=== PATIENT | male | born 1970 | race Caucasian/White ===

== ENCOUNTER → 2023-12-15 08:34 | Outpatient (REF) | payer BC, SELFPAY | LOC: RCS 08:34 | PROVIDERS: ATTENDING PHYSICIAN Nurse Practitioner Family | DX: R01.1 Cardiac murmur, unspecified (principal) | CPT/HCPCS: 93306 ==

== ENCOUNTER → 2023-12-21 07:07 | Day surgery (SDC) | payer BC, SELFPAY | LOC: CATH 07:07 | PROVIDERS: ATTENDING PHYSICIAN Internal Medicine Cardiovascular Disease; FAMILY PHYSICIAN Family Medicine; OTHER PHYSICIAN Internal Medicine Cardiovascular Disease | DX: I08.3 Combined rheumatic disorders of mitral, aortic and tricuspid valves (principal); R00.1 Bradycardia, unspecified; I10 Essential (primary) hypertension; E78.2 Mixed hyperlipidemia; R53.83 Other fatigue | CPT/HCPCS: 93320; 93312; 93325 ==

== ENCOUNTER → 2023-12-30 07:28 | Outpatient (REF) | payer BC, SELFPAY | LOC: RCS 07:28 | PROVIDERS: ATTENDING PHYSICIAN Internal Medicine Cardiovascular Disease; FAMILY PHYSICIAN Family Medicine | DX: I10 Essential (primary) hypertension (principal); I34.0 Nonrheumatic mitral (valve) insufficiency; R53.83 Other fatigue | CPT/HCPCS: 93017 ==

== ENCOUNTER 2024-01-02 09:28 | Inpatient (IN) | payer BC, SELFPAY ==
[2024-01-02] VITALS (17 sets, daily range): BP systolic 116–135; BP diastolic 59–84; BMI 28.3; BMI 27.7
[2024-01-02 06:35] LABS: % Basophils 0.9 % (0-2); % Eosinophils 4.1 % (0-6); % Immature Granulocytes 0.2 % (0-0.5); % Lymphocytes 37.4 % (20.5-51.1); % Monocytes 8.1 % (1.7-9.3); % Neutrophils 49.3 % (42.2-75.2); Absolute Basophils 0.1 10^3/uL (0-0.2); Absolute Eosinophils 0.4 10^3/uL (0-0.7); Absolute Lymphocytes 3.4 10^3/uL (1.2-3.4); Absolute Monocytes 0.7 10^3/uL (0.1-0.6); Absolute Neutrophils 4.5 10^3/uL (1.4-6.5); Hematocrit 43.9 % (39.0-52.0); Hemoglobin 15.8 g/dL (13.0-18.0); Mean Corpuscular Hgb 31.6 pg (27.0-31.0); Mean Corpuscular Volume 87.8 fL (80.0-94.0); Mean Platelet Volume 8.9 fL (7.4-10.4); Nucleated Red Blood Cells % 0 % (-); Platelet Count 279 10^3/uL (130-400); Red Cell Dist. Width 11.9 % (11.5-14.5); White Blood Cell Count 9.1 10^3/uL (4.8-10.8)
--- NOTE | 2024-01-02 06:38 | ED.GENMED ---
History of Present Illness
General
Chief Complaint: Chest Pain
Source: patient, records and previous hospital records
Exam Limitations: none
Time Seen by Provider: 01/02/24 06:26
History of Present Illness
History of Present Illness:
53-year-old male history of mitral valve disease followed by cardiology scheduled for cardiac cath in the coming weeks, presents with chest pain is a fairly frequency last night started on 10 AM went to his arm and jaw, had a stress test recently,
started on aspirin recently has hypercholesterolemia, hypertension, strong family history of CAD he has fatigue which is not new for him, recent underwent a KING
Past History
Past History
ED Past Medical History: GERD, HTN, Valvular disease and Other (Kidney stones)
ED Past Surgical History: None
Social History
Tobacco: Non-smoker
Alcohol: Occasional
Drug: None
Personal:
Living: with family
Employment: Employed
Family History
Family History: Diabetes, Hypertension and CAD
Review of Systems
Review of Systems
All Other Systems: Not applicable
Constitutional: Reports fatigue; Denies fever
EENT: Reports no symptoms
Respiratory: Reports trouble breathing
Cardiac: Reports chest pain; Denies diaphoresis or palpitations
ABD/GI: Reports no symptoms
: Reports no symptoms
Musculoskeletal: Reports no symptoms
Skin: Reports no symptoms
Neurological: Reports weakness; Denies dizzy or numbness
Endocrine: Reports no symptoms
Phy Exam
Physical Exam
Physical Exam:
Physical Exam
General: no apparent distress, not acutely ill
Neck: No jaundice
Heart: Regular +systolic ejection murmur
Lungs: no acute respiratory distress. clear bilaterally
Abdomen: Not tender
Neuro: alert and oriented. no focal neurological deficits
Skin: no rash
Psychiatric: well kept. interactive and cooperative
Extremities: no edema. no calf tenderness.
Scores
Heart Score for Chest Pain Patients
STEMI patient?: No
History: Moderately Suspicious
ECG: Normal
Age: >45 - <65 years
Risk Factors: 1 or 2 Risk Factors
Troponin: </= Normal Limit
Heart Score for Chest Pain Patients: 3
Heart Score Risk: 2.5% MACE over next 6 weeks
Course
Orders/Labs/Results
Orders:
Orders
01/02/24 05:55
Electrocardiogram (*1) Urgent
Reason for Study: Chest Pain
EKG- Treatment ONCE
01/02/24 06:25
CMP [Comprehensive Metabolic Panel] Urgent
Complete Blood Count/With Diff Urgent
Lipase Urgent
Comment: ADD ON
NT-proBNP Urgent
Comment: ADD ON
Troponin I Urgent
01/02/24 06:34
Add On- LAB Urgent
Tests Added?: pBNP, lipase
Aspirin 325 mg PO NOW STA
Nitroglycerin Sublingual [Nitrostat (Sublingual)] 0.4 mg SL [id number] PRN
CR Chest Portable - 1 View Urgent
Comment:
Reason For Exam: cp
Reason Study Needs to be Portable: Patient Unstable
01/02/24 07:24
CARDIOLOGY CONSULT Urgent
Consulting Provider: Aquiles Quintero
Was physician already notified: Yes
Abnormal Lab Results
01/02/24
06:25
MCH 31.6 H pg
(27.0-31.0)
Absolute Monos (auto) 0.7 H 10^3/uL
(0.1-0.6)
Calcium 10.6 H mg/dl
(8.4-10.2)
01/02/24 06:25
01/02/24 06:25
Vital Signs
Initial and Last Documented VS:
Initial Vital Signs
Temp Pulse Resp BP Pulse Ox
97.8 F 54 14 117/69 99
01/02/24 06:13 01/02/24 06:13 01/02/24 06:13 01/02/24 06:13 01/02/24 06:13
Last Documented Vital Signs
Temp Pulse Resp BP Pulse Ox
97.8 F 48 16 119/78 90
01/02/24 06:13 01/02/24 07:00 01/02/24 07:00 01/02/24 07:00 01/02/24 07:00
MDM/Problems Addressed
Differential Diagnosis Includes:
CAD, valvular disease, heart failure reflux less likely PE
MDM/Problems Addressed:
Chest pain shortness
Chronic conditions affecting care:
Valvular
Acute Exacerbation and/or Progression of Chronic Illness:
Valvular
*Radiology
Radiology exam reviewed: preliminary read by ED provider
*Pulse Oximetry
Patient hypoxic: no
*EKG
Interpreted by ED Provider?: Yes
Interpretation: normal
Comparison EKG: no comparison EKG present
Heart Rate: 70
Rate: normal
Rhythm: sinus
Ischemia: no ischemia
*Newspaper Reporter Interpretation
Interpretation: normal
Heart Rate: 70
Rhythm: sinus
*Critical Care Note
Total Time (30-74mins, 75-104mins- exclusive of procedures): Not Applicable
Update Note
Update Note:
Update labs are noted, consult placed to cardiology
ED Attending Note
-
Portions of this chart may have been created with voice recognition software.� Occasional wrong word or��sound alike� substitutions may have occurred due to the inherent limitations of voice recognition software.
Discharge Plan
Departure
Prescriptions:
No Action
multivitamin [One A Day] Tablet
1 tab PO DAILY
amlodipine 5 mg Tablet
5 mg PO DAILY
aspirin [Richard Chewable Aspirin] 81 mg Tablet,Chewable
81 mg PO DAILY
rosuvastatin 40 mg Tablet
40 mg PO DAILY
cholecalciferol (vitamin D3) [Vitamin D3] 50 mcg (2,000 unit) Tablet
50 mcg PO DAILY
vitamin [id number] acid 500-400 mcg Tablet
1 tab PO DAILY
Referrals:
Minnie Frederick CRNP [Family Provider] -
Interventions
Interventions:
*Risk Screen - Suicide Last Done: 01/02/24 05:55
*General Assessment Last Done: 01/02/24 06:13
*Neglect/Abuse Screening Last Done: 01/02/24 05:55
ED- Fall Risk Assessment Last Done: 01/02/24 06:13
*ED COVID-19 Vaccine History Last Done: 01/02/24 06:13
ED- Cardiac Assessment Last Done: 01/02/24 06:13
Discharge Date and Time
Print Language: ROMANIAN
[2024-01-02] MEDS: ASPIRIN 325 MG PO (06:47)
[2024-01-02] MEDS: NITROSTAT (SUBLINGUAL) 0.4 MG SL (06:48)
[2024-01-02 06:52] LABS: ALT (SGPT) 19 U/L (0-50); AST (SGOT) 25 U/L (17-59); Albumin 4.3 g/dl (3.5-5.0); Alkaline Phosphatase 93 U/L (38-126); Blood Urea Nitrogen 18 mg/dl (9-20); Calcium 10.6 mg/dl (8.4-10.2); Carbon Dioxide 23 mmol/L (22-30); Chloride 104 mmol/L (98-107); Estimated Creatinine Clearance 100 ml/min; Glucose 93 mg/dl (70-99); Lipase 229 U/L (23-300); Potassium 4.1 mmol/L (3.5-5.1); Sodium 137 mmol/L (135-145); Total Bilirubin 1.2 mg/dl (0.2-1.3); Total Protein 6.9 g/dl (6.3-8.2); eGFR > 60.00
[2024-01-02 07:03] LABS: NT-proBNP < 20.0 pg/ml; Troponin I < 0.012 ng/ml
--- NOTE | 2024-01-02 08:47 | HPS.HSE ---
Addendum entered and electronically signed by Aquiles Quintero MD 01/02/24 10:41:
53 yo male with moderate/severe MR, with prolapse and partial flail at P2, HTN, hyperlipidemia is admitted with chest pain. He felt a squeezing sensation in his chest with radiation down left arm. He had gone for a walk prior; but the pain occurred
while watching TV. He is currently chest pain free. TnI <0.012, and no ischemic changes on EKG. Of note, I reviewed an ETT done 12/29, which was moderate risk due to 1mm STD and chest tightness with exercise.
Concern for unstable angina. ASA 325mg, heparin drip.
Plan for cath today. I discussed with patient and that he may need CT surgery consult for evaluation for possible CABG and MV repair.
Original Note:
Family Physician
-
Family Physician: DANYA Blevins
Primary maintenance trainer: Farzad Agee MD
Chief Complaint
-
Chest pain
History of Present Illness
Darryl Koo is a 53-year-old male (known to Dr. Agee, his primary maintenance trainer), with hypertension, dyslipidemia, and moderate mitral regurgitation, presents with a chief complaint of chest pain. He has been experiencing chest pain since
approximately 10 PM last night. Yesterday, he went on a walk which is normal for him. He felt well during this walk. At 10 PM, while watching TV, he developed the sudden onset of a squeezing sensation in his chest. At its worst, it was 5/10 in
severity. He also experienced numbness in his left hand and throbbing in his left neck. He denies associated symptoms of nausea, diaphoresis, and dizziness. The chest squeezing sensation was ongoing until approximately 7 AM. His initial troponin
was <0.012. Chest x-ray without acute findings. His EKG is stable.
He initially saw Dr. Agee as a new patient December 19, 2023. This was prompted by a murmur and fatigue. He had a KING and was found to have moderate mitral regurgitation. The plan was for PET myocardial perfusion study however his insurance
provider said it did not meet medical necessity. An ETT was completed on Tuesday. He had ST depression and chest pain during testing.
Medical History
Past Medical History
Past Medical History: Reports HTN and Hypercholesterolemia
Past Surgical History: Reports None
Social History
Tobacco: Non-smoker
Alcohol: Occasional
Drug: None
Personal:
Living: With Family
Employment: Employed
Family History
Family History: Early CAD, CAD, Diabetes and Hypertension
Allergies / Home Medications
Allergies reflects when Allergies were last updated in [facility].
Home Medications with original date entered in [facility]
Allergy/Medication List:
Allergies:
Patient denies allergies to medication. He endorses allergies to ragweed and various grasses. These all cause congestion.
Allergies to apricots and coconut.
Home medication list:
Amlodipine 5 mg daily
Aspirin 81 mg daily
Vitamin D3 50 mcg p.o. daily
Multivitamin 1 tablet p.o. daily
Rosuvastatin 40 mg p.o. daily
Vitamin B12 1 tablet p.o. daily
Review of Systems
-
History Source: Patient
A 12 point ROS was completed and negative except as noted: Yes
Constitutional: Reports Fatigue
EENT: Reports No Symptoms
Respiratory: Reports No Symptoms
Cardiac: Reports See HPI
Abdomen/GI: Reports No Symptoms
: Reports No Symptoms
Musculoskeletal: Reports No Symptoms
Skin: Reports No Symptoms
Neurological: Reports No Symptoms
Endocrine: Reports No Symptoms
Hematologic/Lymphatic: Reports No Symptoms
Psych: Reports No Symptoms
Physical Exam
Vital Signs
Vital Signs
Temp Pulse Resp BP Pulse Ox
97.8 F 49 12 121/74 95
01/02/24 06:13 01/02/24 08:15 01/02/24 08:15 01/02/24 08:00 01/02/24 08:15
Physical Exam
General: Well Developed, Well Nourished, No Apparent Distress and Comfortable
HEENT: NormoCephalic, Anicteric and Moist mucous membranes
Respiratory: Clear and Non Labored Respirations
Cardiac: S1/S2, Regular Rhythm and Murmur (IV/)
Breast: Deferred by me
GI: Soft, Non Tender, Non Distended and Normal Bowel Sounds
Rectal: Deferred by Provider
Musculoskeletal: No Clubbing, No Cyanosis and No Edema
Skin: Warm and Dry
Neuro: AO x 3
Hematologic/Lymphatic: No Lymphadenopathy
Psych: Calm and Intact Judgment/Insight
Laboratory Results
-
01/02/24 06:25
01/02/24 06:25
Laboratory Results
Total Bilirubin 1.2 mg/dl (0.2-1.3) 01/02/24 06:25
AST 25 U/L (17-59) 01/02/24 06:25
ALT 19 U/L (0-50) 01/02/24 06:25
Alkaline Phosphatase 93 U/L (38-126) 01/02/24 06:25
Troponin I < 0.012 ng/ml 01/02/24 06:25
Lipase 229 U/L (23-300) 01/02/24 06:25
Data Reviewed
-
Medical Tests (Nuc Med, Echo, EKG etc): Report Reviewed by me (KING and TTE as above)
Lab Data: Labs Reviewed by me
Old Records: Reviewed
Impression/Plan
-
BACKGROUND: 53M with hypertension, dyslipidemia, and moderate mitral regurgitation, presents with a chief complaint of chest pain.
Security Specialist: Dr. Agee
IMPRESSION/PLAN:
ACS
-Ongoing for ~8 hours
-Described as a squeezing sensation in his chest with left arm numbness and throbbing in his left neck
-Troponin < 0.012
-Abnormal ETT 12/30/2023 (see below)
-HgbA1c 5.6% in the outpatient setting
-ASA 324 mg x 1 now, start heparin drip, no beta-caitlyn due to underlying sinus bradycardia
-Cardiac catheterization today, case discussed with interventional cardiology
Mitral regurgitation, moderate
-KING 12/15/2023 with mid systolic, eccentric, anteriorly directed moderate mitral regurgitation
Dyslipidemia
-Lipid panel 12/05/2023: TC 243, LDL 172, HDL 43, TG 151 -> started on rosuvastatin 12/19/2023
HTN, stable on amlodipine
Sinus bradycardia, stable
SUBJECTIVE: As above
DATA:
ETT, 12/30/2023:
1.The patient was exercised by the Aime protocol into
stage 4 for 9 minutes and 17 seconds achieving 10 METS.
2.The exercise ECG was positive for ischemia at 86%
maximum predicted heart rate with [address] depression
in leads II, III, aVF and V4-V6.
3.The blood pressure response was within normal limits.
4.There was arrhythmia during the study; PAC's and rare
PVC's.
5.The exercise tolerance was average.
6.Symptomatology - chest tightness x 4, resolved 1 minute
in recovery.
7.This is a moderate risk stress test (DTS = +0).
Transesophageal echocardiogram, 12/21/2023:
Normal biventricular size and systolic function without regional wall motion
abnormality.
Mitral valve prolapse with partial flail at P2.
Mid systolic, eccentric, anteriorly directed moderate mitral regurgitation.
No prior study available for comparison.
Echocardiogram, 12/15/2023:
Normal LV size and function with no regional wall motion abnormalities.
LVEF is 60 to 65% by visual estimation.
Normal diastolic function.
Normal right ventricular size and function.
Prolapse of the posterior mitral valve leaflet with moderate to severe
anteriorly directed mitral regurgitation.
Trivial aortic regurgitation.
No prior study available for comparison.
[2024-01-02 09:16] LABS: APTT 25.5 Sec (23.4-35.0)
[2024-01-02] MEDS: HEPARIN 4000 UNITS IV (09:21)
[2024-01-02] MEDS: HEPARIN 25000 UNITS/250 ML IV (09:21)
[2024-01-02 11:05] LABS: Troponin I < 0.012 ng/ml
--- NOTE | 2024-01-02 12:41 | CM ---
Chart reviewed. Patient is independent of ADLS, lives with his in a 1 [address], 0 COLIN, 0 DME. Plan is for the patient to return home. CM to follow
--- NOTE | 2024-01-02 13:18 | PTCARENOTE ---
Received patient from the ED at 1100 with ACS. IV heparin infusing at 1000 units/hr. Oriented to the room and plan of care, patient is NPO and pain free he states since he received NTG in the ED. at the bedside, call conteh in reach, await
cardiac cath.
[2024-01-02 14:23] LABS: Troponin I < 0.012 ng/ml
--- NOTE | 2024-01-02 18:02 | ITS.CL.CATH ---
[employer]bin[employer] Apprentice - Catheterization
Cardiac Catheterization
Procedure Report:
CARDIAC CATHETERIZATION REPORT
Date of Procedure: 01/02/2024
Referring: Carlos Mcknight M.D.
Indication: Severe mitral valve regurgitation.
PROCEDURE:
1. Right heart catheterization.
2. Left heart catheterization.
3. Coronary angiography.
ACCESS:
6 Singaporean right radial artery.
5 Singaporean right antecubital vein.
CATHETERS:
1. 5 Singaporean balloon wedge.
2. 5 Singaporean JL 3.5.
3. 5 Singaporean JR4.
HEMODYNAMIC DATA
Weight (kg): 81.6
AO (s/d/x mmHg): 134/74/98
LV (s/x mmHg): 143/12
PCWP (a/v/x mmHg): 18/
PA (s/d/x mmHg): /
RV (s/x mmHg): 33/7
RA (a/v/x mmHg):
SVC SvO2 (%): 73.5
PA SvO2 (%): 70.8
SaO2 (%): 92.4
Hbg (g/dL): 15.2
CO (L/min): 5.75
CI (L/min/m2): 2.98
TPG (mmHg): 7
PVR (Pearce Units): 1.22
SVR (dynes*seconds*cm^-5): 1266
AVO2 Diff (Volume %): 4.47
AV gradient (x, mmHg): 16.5
AV area (cm2): 2.20
LEFT VENTRICULOGRAPHY: Not performed.
CORONARY ANGIOGRAPHY
Dominance: Right.
Left Main: Normal size, bifurcating vessel. There is no coronary artery disease.
LAD: Normal size vessel giving rise to 1 significant diagonal. There is a <20% tapering of the mid LAD immediately after the origin of the diagonal.
Ramus: Congenitally absent.
Circumflex: Large size, nondominant vessel giving rise to 2 significant marginals. There is no coronary artery disease.
RCA: Large size, dominant vessel. There is no coronary artery disease.
INTERVENTIONS
None.
Closure Device: Vascular band for the right radial artery, manual pressure for the right antecubital vein.
Radiation dose (mGy): 279.54
DAP (cm2.Gy): 17.1858
Fluoroscopy time (minutes): 2.4
Sedation time (minutes): 4
CONCLUSIONS:
1. Right dominant circulation with a <20% tapering of the mid LAD immediately after the origin of the diagonal but no other coronary artery disease.
2. Severe mitral valve regurgitation seen on transesophageal echocardiogram.
3. Normal filling pressures (LVEDP = 12 mmHg, PCWP = 13 mmHg at 81.6 kg).
RECOMMENDATIONS:
1. Expectant management after cardiac catheterization via right radial/antecubital approach.
2. Limited weight bearing on the right wrist for one week.
3. Consultation with CT surgery regarding optimal mitral valve repair strategy.
Copy to: Carlos Mcknight M.D., Farzad Agee M.D., Aquiles Quintero M.D., Ph.D., DANYA Blevins, Tila March M.D.
Jayjay Vasques DO, FACC, FACP
--- NOTE | 2024-01-02 19:20 | PTCARENOTE ---
Received patient from the laboratory development technician at 1745. Radial band is dry and intact right wrist, dressing right brachial area is dry and intact. Pulse ox on right hand is 96% on RA. SR/SB on the monitor, IV NS infusing LFA. Reinforced post cath restrictions,
monitoring VS as per protocol. at the bedside, call conteh in reach. Attempted to remove 3ml of air from right radial band at 1815 but oozing noted from under the band and air reinflated. Reported to oncoming shift. Dr. Hightower in to speak with
the patient and .
--- NOTE | 2024-01-02 23:48 | PTCARENOTE ---
Pt received start of shift, HR SB. R radial band off at 2135, gauze and tegaderm placed over site - area soft, ecchymotic, no hematoma. R radial pulse normal. Pt updated on plan of care, pt states no questions at this time. Pt denies any CP,
informed to notify RN if any changes, call conteh within reach.
[2024-01-03 02:39] VITALS: BP 110/56
[2024-01-03 02:51] VITALS: BMI 27.6
[2024-01-03 03:40] LABS: Hematocrit 42.9 % (39.0-52.0); Hemoglobin 14.9 g/dL (13.0-18.0); Mean Corp Hgb Conc. 34.7 g/dL (33.0-37.0); Mean Corpuscular Volume 92.3 fL (80.0-94.0); Mean Platelet Volume 9.2 fL (7.4-10.4); Platelet Count 245 10^3/uL (130-400); Red Blood Cell Count 4.65 10^6/uL (4.70-6.10); Red Cell Dist. Width 11.9 % (11.5-14.5)
[2024-01-03 04:02] LABS: HDL Cholesterol 34 mg/dl; LDL Cholesterol, Calculated 51 mg/dl; Total Cholesterol 111 mg/dl (50-199); Triglyceride 131 mg/dl (10-149); Very Low Density Lipoprotein 26 mg/dl (0-30)
[2024-01-03 07:50] VITALS: BP 137/81
--- NOTE | 2024-01-03 07:57 | W.PN.CD ---
Today's Communication / Plan
-
CT surgery evalation.
Stable for outpatient cardiology follow up.
Impression / Plan
-
Impression/Plan: 53 y/o male with HTN, HLD and severe mitral regurgitation with flail P2 admitted with chest pain, initially concerning for unstable angina.
#Noncardiac chest pain
-Acute, resolved.
-Cardiac catheterization reveals no significant CAD.
#Severe MR
-Chronic.
-KING shows flail P2 (12/21/2023).
-Filling pressures are essentially normal at cath, showing he is well compensated.
-Consultation with CT surgery (likely outpatient) to discuss degenerative MR mitral valve repair.
#Hypertension
-Chronic, stable.
-Restart home amlodipine.
#HLD
-Chronic, stable.
-Total cholesterol = 111, LDL = 51, HDL = 34, Triglycerides = 131.
-Restart home rosuvastatin. LDL is currently at goal.
#PPx
-SCD's/early ambulation for DVT/VTE prophylaxis.
-No role for PUD prophylaxis.
#Dispo
-IVU status.
-Full code.
-Stable for outpatient cardiology/CT surgery follow up.
Subjective/Interval History:
Cardiac catheterization shows no CAD, well compensated filling pressures.
Sinus glen on telemetry.
DATA:
KING, 12/21/2023:
CONCLUSIONS
Normal biventricular size and systolic function without regional wall motion
abnormality.
Mitral valve prolapse with partial flail at P2.
Mid systolic, eccentric, anteriorly directed moderate mitral regurgitation.
No prior study available for comparison.
Cardiac Catheterization, 01/02/2024:
CONCLUSIONS:
1. Right dominant circulation with a <20% tapering of the mid LAD immediately after the origin of the diagonal but no other coronary artery disease.
2. Severe mitral valve regurgitation seen on transesophageal echocardiogram.
3. Normal filling pressures (LVEDP = 12 mmHg, PCWP = 13 mmHg at 81.6 kg).
Physical Exam
Vital Signs/Labs
Vital Signs
Temp Pulse Resp BP Pulse Ox
36.4 C 50 20 110/56 95
01/03/24 07:52 01/03/24 02:45 01/03/24 07:52 01/03/24 02:39 01/03/24 07:52
01/01/24 01/02/24 01/03/24
11:59 11:59 11:59
Actual Weight 81.8 kg 80 kg
01/03/24 02:48
01/02/24 06:25
APTT Cancelled 01/02/24 15:20
Triglycerides 131 mg/dl (10-149) 01/03/24 02:48
LDL Cholesterol, Calc 51 mg/dl 01/03/24 02:48
VLDL Cholesterol, Calc 26 mg/dl (0-30) 01/03/24 02:48
HDL Cholesterol 34 mg/dl 01/03/24 02:48
01/02/24
06:25
[id number] Pept < 20.0
LAB Results
01/02/24 01/02/24 01/02/24
06:25 10:25 11:02
Troponin I < 0.012 < 0.012 Cancelled
01/02/24 01/02/24
13:38 17:02
Troponin I < 0.012 Cancelled
Physical Exam
Constitutional: No acute distress and Comfortable
EENT: Anicteric and Moist mucous membranes
Cardiovascular: Rhythm & rate is regular, Pedal edema is absent, JVD pressure is normal, Systolic murmur present and S1S2 is normal
Respiratory: Respiratory effort normal, Lungs clear to auscul., Wheeze Absent, Crackles Absent and Rhonchi Absent
GI: Soft, Distention absent, Flat, Non tender and Normal bowel sounds
Neuro/Psych: AO x 3
Other: Cath Site (Right radial/antecubital access site is C/D/I.)
Data Reviewed
-
Date of Service: January 03, 2024
Medical Decision Making: Reviewed Test Results, Independent Historian Assessment, Test Interpretation and Review of Case with other Provider
EKG: Tracing Personally Visualized and interpreted and Report Reviewed by me
Echo: Tracing Personally Visualized and interpreted and Report Reviewed by me
X-Ray/CT/US/MRI/NUC/PET: Image Personally Visualized and interpreted and Report Reviewed by me
Medical Tests (PFT, Pathology etc): Image Personally Visualized and interpreted, Report Reviewed by me, Discussed with Physician and Discussed with Patient
Labs: Labs Reviewed by me
Old Records: Reviewed
--- NOTE | 2024-01-03 08:00 | PTCARENOTE ---
pt received from previous RN, oriented, OOB. SB on the monitor, HR 40-50s. +murmur. SBP 130s. palpable pulses, no edema. pt on RA, lungs clear. pt ambulates independently. voids. R radial site c/d/i. R brachial site c/d/i. PIV. pt denies CP or SOB.
see worklist for VS, I&O, and assessment.
[2024-01-03] MEDS: NORVASC 5 MG PO (08:58)
[2024-01-03] MEDS: LOW STRENGTH ASPIRIN 81 MG PO (08:58)
[2024-01-03] MEDS: CRESTOR 40 MG PO (08:58)
[2024-01-03] MEDS: VITAMIN D3 (cholecalciferol) 50 MCG PO (08:58)
[2024-01-03] MEDS: B COMPLEX w/VITAMIN C 1 CAPLET PO (08:58)
[2024-01-03] MEDS: THERAGRAN 1 TABLET PO (08:58)
[2024-01-03 09:07] LABS: Glycohemoglobin (HgbA1c) 5.6 % (4.0-5.6)
--- NOTE | 2024-01-03 09:11 | W.PN.UPDATE ---
Update Note
Progress Note Update
I met with Mr. Koo at the bedside today. He was comfortable and in no distress. He initial presenting symptom was chest pain and left arm pain while on a treadmill, although he tells me he had this feeling before the treadmill as well. I reviewed
his pathology and findings. He has a flail PL mostly at P2 (borderding into P1) with multiple torn chords and prolapse. His LHC did not reveal any significant/obstructive coronary artery disease. 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 His
valve looks repairable. Will plan to obtain a CTA of the C/A/P for preoperative planning. We will tentatively schedule a surgery date on January 29 for HP Mitral Valve Repair. A full consultation note to follow. We discussed his STS risk for iso MV
repair, I quoted him a <1% mortality. Based on his presentation, some pulmonary vascular congestion, severe MR, I believe he meets criteria for intervention.
Ivan Medina MD, MS
Cardiac Surgeon
[facility]
--- NOTE | 2024-01-03 09:38 | CONSULT.CT ---
Consultation
-
Date/Time Consultation Requested: 01/02
Date/Time Consultation Performed: 01/02
Requesting Provider: Jayjay Vasques
Performing Provider: Latricia Mascorro for Dr. Ivan Medina
Reason for Consultation: evaluate for mitral valve repair/replacement
Patient History
Physicians
Family Physician: Minnie Frederick
Outpatient Protozoology Teacher: Farzad Agee
Inpatient Protozoology Teacher: Jayjay Vasques
History of Present Illness
Darryl Koo is a 53-year-old male with a past medical history significant for hypertension, dyslipidemia, and moderate mitral regurgitation, was admitted on 01/02/2024 to [facility] emergency room with a chief complaint of sudden onset
midsternal chest pain with associated left upper extremity numbness and throbbing in his left neck that started at 10 PM the prior evening. Initial troponin was <0.012. Patient saw Dr. Agee as a new patient on December 19, 2023 to evaluate a murmur
and fatigue. A KING was performed on 12/21/2023 and revealed an EF of 60-65% with mitral valve prolapse, partial P2 flail, and moderate mitral regurgitation.. The plan was for PET myocardial perfusion study however his insurance provider said it did
not meet medical necessity. An ETT was completed on 12/30/23. He had ST depression and chest pain during testing. Patient was admitted and underwent a left heart cath on 01/02/2024 which reported RA�7; PA 33/13 (20); PCW 13; cardiac output
5.75/cardiac index 2.98. Severe mitral regurgitation consistent with KING and nonobstructive coronary disease. We are asked to evaluate patient for mitral valve surgery. He is currently sitting in bed and chest pain-free
Past Medical History
Past Medical History: GERD, HTN, Hypercholesterolemia and Other (Remote nephrolithiasis)
Past Surgical History
Past Surgical History: None
Dental History
2 months ago
Social History
Alcohol: Occasional
Drug: None
Tobacco: Non-Smoker
Personal:
Living: With Spouse
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
Allergies
Allergy/AdvReac Type Severity Reaction Status Date / Time
No Known Allergies Allergy Verified 01/02/24 06:04
Home Medications
�Medication �Instructions �Recorded �Confirmed �Type
amlodipine 5 mg tablet 5 mg PO DAILY Blood Pressure 12/21/23 01/02/24 History
aspirin 81 mg chewable tablet 81 mg PO DAILY Blood Clot 12/21/23 01/02/24 History
(Richard Chewable Low Dose Aspirin) Prevention/Tx
cholecalciferol (vitamin D3) 50 50 mcg PO DAILY Supplement 12/21/23 01/02/24 History
mcg (2,000 unit) tablet (Vitamin
D3)
multivitamin 1 tab PO DAILY Supplement 12/21/23 01/02/24 History
rosuvastatin 40 mg tablet 40 mg PO DAILY High Cholesterol 12/21/23 01/02/24 History
vitamin B12 500 mcg-folic acid 400 1 tab PO DAILY Supplement 12/21/23 01/02/24 History
mcg tablet
Review of Systems
-
History Source: Patient
General: Reports No Symptoms
HEENT: Reports No Symptoms
Respiratory: Reports No Symptoms
Cardiac: Reports Chest Pain
Abdomen/GI: Reports No Symptoms
: Reports No Symptoms
Musculoskeletal: Reports No Symptoms
Skin: Reports No Symptoms
Neurological: Reports No Symptoms
Vascular: Reports No Symptoms
Physical Exam
Vital Signs
Temp 97.6 F 01/03/24 07:52
Temp route: Oral 01/03/24 07:52
Pulse 53 01/03/24 08:30
Rhythm: Sinus bradycardia 01/02/24 20:15
Resp Rate 20 01/03/24 07:52
Blood pressure 137/81 01/03/24 08:58
Blood pressure extremity used: Left upper arm 01/03/24 07:52
Position: Sitting 01/03/24 07:52
MAP (cuff-Marcelina Monitor) 95 01/03/24 07:50
SaO2 95 01/03/24 07:52
Oxygen Mode of Delivery Room air 01/03/24 07:52
Acceptable pain level during hospitalization? 0 01/02/24 05:55
Can the patient verbally communicate their pain? Yes 01/02/24 12:44
Pain scale ratin 01/02/24 06:13
Actual Weight 80 kg 01/03/24 02:51
Body Mass Index (BMI) 27.6 01/03/24 02:51
Labs
01/03/24 02:48
01/02/24 06:25
APTT Cancelled 01/02/24 15:20
Hemoglobin A1c Cancelled 01/02/24 11:02
Troponin I Cancelled 01/02/24 17:02
Map-D-Blayvblzyju Pept < 20.0 pg/ml 01/02/24 06:25
Exam
General: Well Developed and Well Nourished
HEENT: Normocephalic, Moist Mucous Membranes and PERRLA
Neck: Trachea Midline
Respiratory: Clear
Cardiac: S1/S2, Regular Rhythm and Murmur (II/ HSM)
GI: Soft, Non Tender and Normal Bowel Sounds
Rectal: Deferred by Provider
Skin: Warm and Dry
Neuro: AO x 3, No Motor Deficits and CN X-XII Intact
Extremities: Pulses (+2/4 DP pulses B/L)
Lymph: No Lymphadenopathy
Psych: Calm
Assessment / Plan
-
53 year old male with severe mitral regurgitation with flail P2, and preserved EF
- Dr Medina spoke with patient and his regarding surgical procedure, risk/benefit, and usual recovery trajectory\\
- plan for mitral repair, possible heart port approach scheduled for 01/29
- CTA C/A/P ordered
- consent signed
- Dental form given to patient
Data Reviewed
-
EKG: Report Reviewed by me and Discussed with Physician
Alignment Technician: Report Reviewed by me and Discussed with Physician
Echo: Report Reviewed by me and Discussed with Physician
Radiology: Report Reviewed by me and Discussed with Physician
Labs: Labs Reviewed by me and Discussed with Physician
--- NOTE | 2024-01-03 10:41 | CM ---
Chart reviewed. Patient is independent of ADLS, lives with his in a 1 STH, 0 COLIN, 0 DME. Patient being worked up for a MVR. Plan to return for PAT. Patient currently with no discharge needs. CM to follow
--- NOTE | 2024-01-03 11:36 | W.DS.TRANS ---
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
-
Discharge Instructions:
Discharge Diagnosis/Procedures Severe mitral regurgitation
Chest pain
Hypertension
Hyperlipidemia
Diet Low Cholesterol
Activity No strenuous activity
Additional Activity See attached instructions.
Driving Restrictions No driving for 24 hours
Bathing Restrictions None
Instructions:
Stand-Alone Forms: DC Instructions- Cath/EP Lab
Changes to Home Medications: No
Discharge Medications:
DC Medications w/original date entered in House Party
amlodipine 5 mg tablet 5 mg PO DAILY Blood Pressure 12/21/23
aspirin 81 mg chewable tablet (Richard Chewable Low Dose Aspirin) 81 mg PO DAILY Blood Clot Prevention/Tx 12/21/23
cholecalciferol (vitamin D3) 50 mcg (2,000 unit) tablet (Vitamin D3) 50 mcg PO DAILY Supplement 12/21/23
multivitamin 1 tab PO DAILY Supplement 12/21/23
rosuvastatin 40 mg tablet 40 mg PO DAILY High Cholesterol 12/21/23
vitamin B12 500 mcg-folic acid 400 mcg tablet 1 tab PO DAILY Supplement 12/21/23
Home Medication Changes
Pending Results: Yes
Additional Pending Results:
CT scan
[2024-01-03 11:50] VITALS: BP 136/81
--- NOTE | 2024-01-03 12:32 | PTCARENOTE ---
pt VSS, no changes in assessment. CT scan completed. pt discharged home w/ , discharge instructions reviewed w/ patient and . questions answered. home meds reviewed. IV and tele dc'd. pt dressed self.
== END 2024-01-03 12:51 | disposition home or self-care (01) | DRG 287 ==
LOC: IVU 09:28
PROVIDERS: Internal Medicine Cardiovascular Disease; Nurse Practitioner Gerontology; ADMITTING PHYSICIAN Internal Medicine; CONSULT PHYSICIAN Thoracic Surgery (Cardiothoracic Vascular Surgery); EMERGENCY PHYSICIAN Emergency Medicine; FAMILY PHYSICIAN Nurse Practitioner Family
PROC: B2161ZZ Fluoroscopy of Right and Left Heart using Low Osmolar Contrast (ICD-10-PCS; 2024-01-02)
PROC: B2111ZZ Fluoroscopy of Multiple Coronary Arteries using Low Osmolar Contrast (ICD-10-PCS; 2024-01-02)
PROC: 4A023N8 Measurement of Cardiac Sampling and Pressure, Bilateral, Percutaneous Approach (ICD-10-PCS; 2024-01-02)
DX: I34.0 Nonrheumatic mitral (valve) insufficiency (principal); R07.89 Other chest pain; I10 Essential (primary) hypertension; E78.5 Hyperlipidemia, unspecified
CPT/HCPCS: 71045; 71275; 74174; 80053; 80061; 83036; 83690; 83880; 84484; 85025; 85027; 85730; 93005; 93460; 99285; C1894; Q9967

== ENCOUNTER → 2024-01-26 09:15 | Outpatient (REF) | payer BC, SELFPAY | LOC: DHSLP 09:15 | PROVIDERS: ATTENDING PHYSICIAN Internal Medicine; FAMILY PHYSICIAN Family Medicine | DX: G47.33 Obstructive sleep apnea (adult) (pediatric) (principal); G47.52 REM sleep behavior disorder | CPT/HCPCS: 95810 ==

== ENCOUNTER 2024-01-30 05:03 | Inpatient (IN) | payer BC, SELFPAY ==
[2024-01-26 08:38] VITALS: BMI 28.9
--- NOTE | 2024-01-26 09:56 | CM ---
Chart reviewed. Met with the patient and his in PAT. Reviewed preoperative and postoperative instructions and restrictions. Gave patient 2 soaps, along with showering guidelines. Patient is agreeable to a home visit by CT Transitional RN.
Patient is independent of ADLS, lives with his in a 1 STH,, 0 COLIN, 0 DME. Patient is still working. Plan is for the patient to return home with CT Transitional RN. CM to follow
[2024-01-30] VITALS (15 sets, daily range): BP systolic 82–144; BP diastolic 54–77; BMI 28.3
[2024-01-30] MEDS: PROTONIX 40 MG PO (05:24)
[2024-01-30] MEDS: BACTROBAN 2% OINTMENT 1 APPLIC NASAL ×2 (05:24→20:34)
[2024-01-30] MEDS: MAGNESIUM OXIDE 500 MG PO (05:24)
[2024-01-30] MEDS: LOPRESSOR 25 MG PO (05:24)
--- NOTE | 2024-01-30 05:30 | PTCARENOTE ---
pt admitted into room 2262, VS and weight obtained. pt confirms 2 showers @ home and NPO since midnight. admission questions and med rec completed. clip prep and CHG wipes done. pre-op meds given. ABO and coags drawn and sent per orders. @
bedside.
[2024-01-30 05:35] LABS: INR 0.98; PT 12.8 Sec (11.4-14.6)
--- NOTE | 2024-01-30 06:33 | W.CVOR.SURPR ---
CVOR Surgeon Immed Pre Op
-
I have examined this patient prior to performance of the scheduled procedure.
The patient's condition is unchanged from the time of the dictated/written History and
Physical and the patient is able to undergo the scheduled procedure.
Mitral Valve Repair
[2024-01-30 07:57] LABS: Urine Albumin Negative (Neg - Trace); Urine Bilirubin Negative (Negative); Urine Character Clear (Clear); Urine Color Yellow; Urine Glucose Negative (Negative); Urine Ketone Negative (Negative); Urine Leukocyte Negative (Negative); Urine Nitrite Negative (Negative); Urine Occult Blood Negative (Negative); Urine Urobilinogen Negative (Neg - 1+)
[2024-01-30 08:03] LABS: ACT+ - POC 85 Seconds (82-134)
[2024-01-30 09:04] LABS: ACT+ - POC 504 Seconds (82-134)
[2024-01-30 09:30] LABS: B.E. - POC -1.8 mmol/L; Glucose - POC 108 mg/dl (65-99); HCO3 - POC 23 mmol/L (21-29); Hematocrit - POC 36 % PCV (42-52); Hemodilution- POC No; Hemoglobin Calculated - POC 12.3; Ionized Calcium - POC 1.22 mmol/L (1.12-1.27); O2 Saturation %Calculated-POC 97.8 5 (92-96); PCO2 - POC 40 mmHg (35-45); PO2 - POC 104 mmHg (80-100); POC Comment PRE; Potassium - POC 3.6 mmol/L (3.6-5.0); Sodium - POC 144 mmol/L (135-145); pH - POC 7.37 (7.35-7.45)
[2024-01-30 09:42] LABS: ACT+ - POC 432 Seconds (82-134)
[2024-01-30 09:56] LABS: ACT+ - POC 474 Seconds (82-134)
[2024-01-30 10:11] LABS: ACT+ - POC 498 Seconds (82-134)
[2024-01-30 10:18] LABS: B.E. - POC 1.3 mmol/L; Glucose - POC 127 mg/dl (65-99); HCO3 - POC 26 mmol/L (21-29); Hematocrit - POC 26 % PCV (42-52); Hemodilution- POC Yes; Hemoglobin Calculated - POC 8.8; Ionized Calcium - POC 0.99 mmol/L (1.12-1.27); PCO2 - POC 38 mmHg (35-45); PO2 - POC 413 mmHg (80-100); POC Comment CPB; Potassium - POC 5.4 mmol/L (3.6-5.0); Sodium - POC 141 mmol/L (135-145); pH - POC 7.44 (7.35-7.45)
[2024-01-30 10:59] LABS: B.E. - POC 0.4 mmol/L; Glucose - POC 177 mg/dl (65-99); HCO3 - POC 25 mmol/L (21-29); Hematocrit - POC 32 % PCV (42-52); Hemodilution- POC Yes; Hemoglobin Calculated - POC 10.8; Ionized Calcium - POC 1.05 mmol/L (1.12-1.27); O2 Saturation %Calculated-POC 99.7 5 (92-96); PCO2 - POC 38 mmHg (35-45); PO2 - POC 189 mmHg (80-100); POC Comment CPB; Potassium - POC 5.3 mmol/L (3.6-5.0); Sodium - POC 142 mmol/L (135-145); pH - POC 7.42 (7.35-7.45)
[2024-01-30 11:03] LABS: ACT+ - POC 104 Seconds (82-134)
[2024-01-30 11:13] LABS: B.E. - POC -4.1 mmol/L; Glucose - POC 169 mg/dl (65-99); HCO3 - POC 21 mmol/L (21-29); Hematocrit - POC 31 % PCV (42-52); Hemodilution- POC Yes; Hemoglobin Calculated - POC 10.6; Ionized Calcium - POC 1.31 mmol/L (1.12-1.27); O2 Saturation %Calculated-POC 91.8 5 (92-96); PCO2 - POC 36 mmHg (35-45); PO2 - POC 65 mmHg (80-100); POC Comment POST; Potassium - POC 3.9 mmol/L (3.6-5.0); Sodium - POC 142 mmol/L (135-145); pH - POC 7.37 (7.35-7.45)
--- NOTE | 2024-01-30 11:38 | W.PN.CD ---
Addendum entered and electronically signed by Farzad Agee MD 01/30/24 14:51:
I saw and examined the patient.
The FIELD AIDE's note was reviewed and I agree with the note.
Comment: 53M with with hypertension, dyslipidemia, and severe mitral regurgitation who presented for mitral valve repair
- wean pressors and vent as able
Original Note:
Today's Communication / Plan
-
Follow telemetry
Postoperative care per CT surgery
Impression / Plan
-
BACKGROUND: 53M with with hypertension, dyslipidemia, and severe mitral regurgitation who presented for mitral valve repair
Process Assistant: Dr. Agee
Radial mitral valve repair 01/30/[address] Medina
-Preoperative KING showed flail P2, during cardiac catheterization LVEDP 12 mmHg at 81.6 kg
-Triangular resection of P2 into P1 with primary repair and placement of a single [place]-Slade cord for reinforcement, 34 mm band annuloplast
-EF 60% pre and postoperatively without residual mitral regurgitation, without CON, MG 2
-EKG with sinus rhythm
-CXR pending
Hypertension, follow BP
HLD, LDL at goal on rosuvastatin 40 mg
SUBJECTIVE:
Intubated and sedated.
Physical Exam
Vital Signs/Labs
Vital Signs
Temp Pulse Resp BP Pulse Ox
97.7 F 61 17 144/74 97
01/30/24 05:05 01/30/24 05:05 01/30/24 05:05 01/30/24 05:03 01/30/24 05:05
01/29/24 01/30/24 01/31/24
06:59 06:59 06:59
Actual Weight 79.5 kg
PT 12.8 Sec (11.4-14.6) 01/30/24 05:10
INR 0.98 01/30/24 05:10
APTT 28.0 Sec (23.4-35.0) 01/30/24 05:10
Physical Exam
Constitutional: No acute distress and Comfortable
EENT: Anicteric and Moist mucous membranes
Cardiovascular: Rhythm & rate is regular, Pedal edema is absent and S1S2 is normal
Respiratory: Lungs clear to auscul. and Other (Intubated on mechanical ventilation)
GI: Soft, Distention absent, Flat, Non tender and Normal bowel sounds
Neuro/Psych: Other (sedated)
Other: Skin
Data Reviewed
-
Date of Service: January 30, 2024
EKG: Report Reviewed by me
Medical Tests (PFT, Pathology etc): Report Reviewed by me
Labs: Labs Reviewed by me
Old Records: Reviewed
--- NOTE | 2024-01-30 11:42 | W.PN.CT.SURG ---
CT Surgery Operative Note
-
CARDIAC SURGERY OPERATIVE REPORT
Preoperative Diagnosis: Severe mitral valve insufficiency, myxomatous degeneration with torn cords, symptomatic
Postoperative Diagnosis: Same
Procedure(s) Performed:
1. Right mini thoracotomy with right common femoral artery and vein cannulation under KING guidance
2. Radical mitral valve repair (triangular resection of P2 into P1 with primary repair and placement of a single [place]-Slade cord for reinforcement, 34 mm band annuloplasty)
3. Placement temporary ventricular pacing wires
4. Trans esophageal echocardiography
Date of Surgery: 01/30/2024
Comorbidities:
1. 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
2. Severe mitral valve insufficiency, symptomatic with hospital admission
3. Hyperlipidemia
4. Hypertension
Attending Surgeon: Ivan Medina MD, MS
Assistants: Luz Marina Meza PA-C (present and necessary for retraction, suctioning, exposure, suture management, wound closure, etc. under my direction)
Anesthesiology: Kendall Vega MD and Tha Pena CRNA
Scrub and Circulating RNs: Chuck Plasencia RN, Mauricio Roldan RN
Sql Bi Developer: Azam Truong CCP
Anesthesia: GETA
EBL: per perfusion records
Products: None
CPB Time: 101 minutes
Aortic Cross Clamp Time: 71 minutes
Indication(s) for Procedures: This is a 53-year-old male who was relatively otherwise healthy who presented to the hospital with shortness of breath and sudden onset of midsternal chest pain involving numbness of the left upper extremity in the
evening time. As part of his workup he underwent a left heart catheter did not demonstrate any obstructive coronary artery disease. Trans thoracic echocardiogram demonstrated mitral valve insufficiency, on transesophageal echocardiogram was better
characterize and found to be severe and eccentric in nature. He did respond well to diuresis. Given the severity of his mitral valve sufficiency and his somewhat atypical symptoms, he was offered expedited mitral valve intervention in that class I
indication for surgery.
Mitral Valve Description: Myxomatous degeneration, type II, with multiple torn cords at the free margin of P2 which is also prolapsing and flailed. Annulus was moderately dilated, there is also thickening of both the anterior and posterior leaflets.
Implants:
1. 34 mm Pak PhysioFlex Band, SN [id number]
2. Single pair of CV4 GoreTex
Specimen:
1. Triangular segment P2 scallop with torn chords
Findings: His left ventricular ejection fraction preoperatively was normal at 60% with no regional wall motion abnormalities. Following surgery his EF remained the same at 60% with no new regional wall motion abnormalities. His mitral valve had
evidence of myxomatous degeneration with prolapsing segment of P2 as well as multiple torn cords and a flail segment. Both leaflets were quite thickened. The annulus was also dilated. The mitral valve was repaired by performing a triangular
resection of the flail segment with primary repair with multiple interrupted 5-0 Prolene sutures. Additional Hawkins-Slade cord was placed from the posterior medial papillary muscle head to the repaired segment at P2 to help reinforce that area.
Dynamic inflation of the left ventricle demonstrated a good coaptation height and competent valve. The valve was sized to the anterior leaflet with a 34 mm annuloplasty band and secured into place with 10 nonpledgeted 2 Ethibond sutures with core
knots. After coming off cardiopulmonary bypass, there was no residual mitral valve insufficiency, no systolic anterior motion of the leaflets, and a mean gradient of 2 mmHg across the valve. He did have mild aortic valve insufficiency that was the
same after cardiopulmonary bypass. RV size and function were both normal. No products were given, he did not require any pacing and did regain his sinus rhythm, no significant inotropic support was required.
Description of Procedure: The patient was brought to the operating room and placed supine in the table with their right side bumped up and right arm down. Arterial and central access was performed by anesthesiology. The patient was prepped from chin
to toes in the typical sterile fashion. Trans esophageal evaluation of cardiac function and all valvular structures was conducted. Before commencing, a time out was performed by all members of the team. All were in agreement with the procedure and
laterality and I proceeded. A small right groin incision was made to expose the common femoral artery and vein. A total of 55, 000 units of heparin was given. A 5-6 cm right lateral thoracotomy was performed over the 4th intercostal space verified
by visualization of the hilum, initially entered in the fifth intercostal space and had to relocate higher from the diaphragm was obstructing view. The common femoral artery and vein were cannulated under transesophageal guidance using open
Seldinger technique. The arterial line was verified to have an appropriate bounce and pressure correlating with testing. Once the ACT was above 400, retrograde autologous priming was done and we commenced cardiopulmonary bypass. Target core
temperature was 34�C.
Carbon dioxide was used to flood the field. The course of the phrenic nerve was identified to prevent injury. The pericardium was opened and two stay sutures were placed to facilitate a ``pericardial table.�� The oblique sinus was developed followed
by the inter atrial groove. An antegrade root vent was inserted and secured with a pursestring suture. The pump flow and mean arterial pressure were lowered and an aortic cross clamp was applied to the ascending aorta. A total of 1.2L initial dose
of Antegrade cardioplegia was delivered. We had rapid electro myocardial quiescence at 300 cc of cardioplegia. The ventricle was monitored for distension by echocardiogram during this time. The left atrium was incised and enlarged. A left atrial
lift retractor was placed. The mitral valve was inspected. The mitral valve was repaired as described above. The left atriotomy was closed with 3-0 prolene in a running fashion leaving a ventricular vent in place to de-air. After filling the heart,
the vent was removed and the prolene was secured with a corknot. Unipolar ventricular pacing wire was placed on the base of the right ventricle. The patient was placed into Trendelenburg position and pump flows were lowered. The clamp was slowly
removed with the root vent turned on. De-airing maneuvers were performed. We started to rewarm with a target of 36.5�C.
As the heart recovered, the mitral valve and ventricular function were assessed under transesophageal echocardiogram. The LV vent and root vents were removed. Once weaning parameters were satisfactory, cardiopulmonary bypass flow was lowered until
we were off cardiopulmonary bypass the mitral valve was inspected again. All surgical sites were inspected for hemostasis and appeared appropriate. The lines were clamped and the arterial was relocated to the venous cannula to give back volume. A
test dose of protamine was delivered and patient was monitored for any adverse reactions followed by complete protamine dosing. The femoral vessels were decannulated and repaired as indicated. The pericardium was approximated with 2-0 ethibond
sutures secured with corknots. One 19F Nishant drain remained in the pleural space an threaded into the pericardium. There was an excellent palpable distal to the CIVIL ENGINEERING PROJECT MANAGER cannulation site. Local analgesia was injected to the thoracotomy. The rib space was
approximated with #2 ethibond suture. The incision was closed in layers in a running fashion.
All instrument, sponge, and needle counts were confirmed to be correct x 2 at the end of the operation. The patient was transferred to the cardiac intensive care unit in critical but stable condition.
I, Dr. Ivan Medina, was present, scrubbed for, and performed all critical elements of this procedure.
Ivan Medina MD, MS
Cardiothoracic Surgeon
[facility]
This dictation was created using the At[employer]po dictation system. Please excuse any grammatical, typographical, or 'sound alike' errors
--- NOTE | 2024-01-30 11:54 | W.PN.UPDATE ---
Update Note
Progress Note Update
IV fluids: 1500
U.O.:� 300
UF:� 1600
Blood:� None
Wires:� Ventricular
Inotropes:� None
Pressors:� None
Sedatives:� Precedex
�
NEURO: sedated on precedex, pupils +1mm B/L
RESP: #8OT @24cm> 14/500/100/10;Lungs clear B/L. RACW CT (25cc on arrival) chest tubes to -20cm suction. Sanguineous drainage
CV: RRR +S1, S2, no S3, no�rub, no murmur. Dermabond to median sternotomy. RIJ w/[place] locked @ 45cm. PA 36/18 CVP 14
ABD: round, soft, no BS
EXT: no edema, +2/4 DP pulses B/L, no femoral bruit, left radial A-line intact
: Christensen with clear yellow urine
�
A/P: POD #0 s/p Radical mitral valve repair (triangular resection of P2 into P1 with primary repair and placement of a single [place]-Slade cord for reinforcement, 34 mm band annuloplasty)
KING: EF�NML
- wean and extubate
- Monitor CT and urine output
- Follow up labs and CXR
- Wean levophed for maps >65
- Will start ASA tonight
- EKG pending and will send to cards
- Cards consulted
�
# acute surgical blood loss anemia-expected
- trend CBC
- Transfusion goal Hgb <7�
�
# Hyperglycemia
- insulin infusion x 24h
- A1c 5.6
�
# Hyperlipidemia
- resume�statin when tolerating PO
[2024-01-30 12:02] LABS: Glucose - Point of Care 152 mg/dl (70-99)
[2024-01-30 12:06] LABS: Hematocrit 33.6 % (39.0-52.0); Hemoglobin 11.8 g/dL (13.0-18.0); Platelet Count 195 10^3/uL (130-400)
[2024-01-30 12:07] LABS: B.E. -2.9 mmol/L; HCO3 22.6 mmol/L (21-28); Ionized Calcium 1.25 mMOL/L (1.15-1.33); PCO2 41 mmHg (35-48); PO2 149 mmHg (83-108); Potassium 3.8 mMOL/L (3.5-5.1); Sodium 138 mMOL/L (136-145); pH 7.35 (7.35-7.45)
[2024-01-30 12:11] LABS: O2 Therapy vent
--- NOTE | 2024-01-30 12:14 | PTCARENOTE ---
Pt received from CVOR at 1150; Sedated and intubated; NSR rhythm on monitor; VSS; Epicardial V wires present with pacemaker box turned off; DP and radial pulses present; no edema noted; Lungs diminished at bases; ETT size 8 positioned and secured at
22 cm at lip; Ventilator settings SIMV 10/5/500/14 FiO2 100%; CTx1 to -20 cm wall suction draining bloody drainage - no air leak, tidaling, or crepitus noted; Hypoactive BS; Christensen catheter in place draining clear yellow urine; Surgical sites CDI;
Left A-line; RIJ [place]af[place]in, Taras floated to 46 and PIV x1; All lines leveled and zeroed; Insulin and Precedex infusing see flow sheet for details; See nursing documentation for further details.
CO: 4.82
CI: 2.55
SVR: 1145
[2024-01-30 12:18] LABS: Mixed Venous O2 Saturation 82.9 %
[2024-01-30 12:19] LABS: Blood Urea Nitrogen 14 mg/dl (9-20); Estimated Creatinine Clearance 86 ml/min; Glucose 147 mg/dl (70-99); Magnesium 2.5 mg/dl (1.6-2.3)
[2024-01-30] MEDS: KCL 50 IV (12:29)
[2024-01-30] MEDS: CRESTOR PO (12:30)
[2024-01-30] MEDS: ANCEF 10 IV ×2 (12:30)
[2024-01-30] MEDS: NEURONTIN PO ×2 (12:30→16:10)
[2024-01-30] MEDS: B COMPLEX w/VITAMIN C PO (12:31)
[2024-01-30] MEDS: THERAGRAN PO (12:31)
[2024-01-30] MEDS: VITAMIN D3 (cholecalciferol) PO (12:31)
[2024-01-30 12:41] LABS: APTT 28.3 Sec (23.4-35.0); INR 1.38; PT 16.8 Sec (11.4-14.6)
[2024-01-30] MEDS: LASIX 20 MG IV (12:48)
[2024-01-30] MEDS: NSS 500 IV (12:48)
[2024-01-30] MEDS: CARDENE 200 IV (12:50)
[2024-01-30 13:04] LABS: Glucose - Point of Care 136 mg/dl (70-99)
[2024-01-30 14:05] LABS: Glucose - Point of Care 127 mg/dl (70-99)
--- NOTE | 2024-01-30 14:10 | PTCARENOTE ---
CALL BOX WIRER Michelle Eric in room and pt placed on CPAP. ABG's due at 1440
[2024-01-30] MEDS: TYLENOL PO (14:21)
[2024-01-30] MEDS: OFIRMEV 100 IV (14:36)
--- NOTE | 2024-01-30 14:54 | CON.INTV ---
Consultation
Consultation Request
Date/Time Consultation Requested: 01/30/24
Date/Time Consultation Performed: 01/30/24
Performing Provider: Thom
Reason for Consultation: CVICU
Medical History
-
History of Present Illness:
Patient is a 53-year-old male with previous history of hypertension, hyperlipidemia, moderate mitral regurgitation evaluated as a outpatient for murmur and fatigue. Had KING performed on 12/21/2023 which showed EF 60-65% with mitral valve prolapse and
moderate mitral regurgitation. He underwent exercise stress testing 12/30/[address] depression and chest pain, he was admitted and underwent left heart catheterization 01/02/2024 with severe mitral regurgitation. He then underwent
mitral valve repair by Dr. Medina 01/30/2024 and postoperatively transferred to CVICU for further management.
Past Medical History
Past Medical History: Other (see list below)
Family History
Family History: Reviewed & Not Pertinent
Allergies / Home Medications
Allergies
Allergy/AdvReac Type Severity Reaction Status Date / Time
No Known Allergies Allergy Verified 01/02/24 06:04
Home Medications
�Medication �Instructions �Recorded �Confirmed �Last Taken �Type
amlodipine 5 mg tablet 5 mg PO DAILY Blood Pressure 12/21/23 01/30/24 01/29/24 10:30 History
aspirin 81 mg chewable tablet 81 mg PO DAILY Blood Clot 12/21/23 01/30/24 01/29/24 10:30 History
(Richard Chewable Low Dose Aspirin) Prevention/Tx
cholecalciferol (vitamin D3) 50 50 mcg PO DAILY Supplement 12/21/23 01/30/24 01/29/24 10:30 History
mcg (2,000 unit) tablet (Vitamin
D3)
multivitamin 1 tab PO DAILY Supplement 12/21/23 01/30/24 01/29/24 10:30 History
rosuvastatin 40 mg tablet 40 mg PO DAILY High Cholesterol 12/21/23 01/30/24 01/29/24 10:30 History
vitamin B12 500 mcg-folic acid 400 1 tab PO DAILY Supplement 12/21/23 01/30/24 01/29/24 10:30 History
mcg tablet
Review of Systems
-
History Source: Patient
All other systems: Negative unless noted
Vitals / Labs / Diagnostic Testing
Vital Signs
Temp Pulse Resp BP Pulse Ox
98.3 F 57 13 87/62 96
01/30/24 14:04 01/30/24 14:25 01/30/24 14:25 01/30/24 14:01 01/30/24 14:25
Lab Data
01/30/24 11:59
Laboratory Results
01/30/24 01/30/24
05:10 11:59
PT 12.8 16.8 H
INR 0.98 1.38
APTT 28.0 28.3
pH 7.35
pCO2 41
pO2 149 H
HCO3 22.6
O2 Delivery Level vent
Microbiology
01/26/24 09:08 Nose MRSA Screen - Final
No Methicillin Resistant Staphylococcus aureus isolated.
Diagnostic Testing:
Physical Exam
-
HEENT: Normocephalic, Anicteric and Moist Mucous Membranes
Cardiovascular: S1/S2, Regular Rhythm and Murmur
Respiratory: Clear and Non-Labored Respirations
GI: Soft, Non Distended and Non Tender
Neurology: Awake, Alert, Oriented, AO x 3 and No Motor Deficits
Skin: Warm, Dry and Good Color
General: Comfortable and Other (NAD)
Assessment
-
Patient is a 53-year-old male with previous history of hypertension, hyperlipidemia, moderate mitral regurgitation evaluated as a outpatient for murmur and fatigue. Had KING performed on 12/21/2023 which showed EF 60-65% with mitral valve prolapse and
moderate mitral regurgitation. He underwent exercise stress testing 12/30/[address] depression and chest pain, he was admitted and underwent left heart catheterization 01/02/2024 with severe mitral regurgitation. He then underwent
mitral valve repair by Dr. Medina 01/30/2024 and postoperatively transferred to CVICU for further management.
Severe MR s/p Radical mitral valve repair (triangular resection of P2 into P1 with primary repair and placement of a single [place]-Slade cord for reinforcement, 34 mm band annuloplasty) 01/30/24
Perioperative MV s/p extubation
Chronic fatigue
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
Hypertension
Hyperlipidemia
Overweight, BMI 28
Anxiety/depression
Mild intermittent asthma
Osteoarthritis of both hips
Chronic fatigue
History of pneumonia/chronic bronchitis
Hayfever
Sleep apnea/insomnia
Frequent infections
Kidney stones
Mild TREVOR on HST
Plan
S/p MVR POD #0
Titrate off pressors per protocol
ECHO reviewed with normal function
PA catheter readings reviewed
Management of chest tubes per primary service
Intubated/sedated, initiate SAT when able
Pain control
RASS goal of 0 to -1
Intubated for procedure, extubated and doing well
ABG(s) reviewed
CXR with no obvious opacities/infiltrates, low lung volumes, ETT in good position, lines/tubes in place
Maintain supplement oxygen as needed
No prior history of pulmonary disease, had been told in past he has asthma/not confirmed
Chronic cough an issue
Prior PFTs reviewed--in office/normal, can eval cough complaints again as OP
HST with mild TREVOR, CPAP can be tried if needed
Can add nebulizers if needed
Aspiration precautions
Encouraged incentive spirometry, OOB/ambulation/early mobility
Advance diet as tolerated following extubation
GI prophylaxis if indicated for mechanical ventilation >48 hours
Monitor critical I/O's
Christensen/chest tube output
Hb/platelets postoperatively stable
Trend CBC for now
Can transfuse if indicated for Hb <7, plt <50 in surgical patients
DVT prophylaxis including SCDs
Insulin protocol initiated and ongoing
Transition to SQ/off as indicated per team
We will follow
Diagnostic Data
Chest X-Ray: 01/30/24- Lines/Tubes/Devices: Endotracheal tube terminates approximately 3.3 cm above the zaid. Right IJ approach [place]-Christian catheter with tip in the pulmonary artery trunk. Single drainage catheter is present, presumably mediastinal.
Postsurgical changes from mitral annuloplasty.
Lungs/Pleura: Low lung volumes with bronchovascular crowding. No consolidation, pleural effusion, or pneumothorax.
CT Scan: CTA 01/03/24- Patent thoracic arterial vasculature without narrowing or significant atherosclerotic disease.
No calcifications involving the mitral valve.
LUNGS/PLEURA: No focal airspace disase. No nodules. No pleural effusions or pneumothorax.
Echo: 12/21/23- Normal biventricular size and systolic function without regional wall motion abnormality. Mitral valve prolapse with partial flail at P2. Mid systolic, eccentric, anteriorly directed moderate mitral regurgitation.
No prior study available for comparison.
[facility] 01/02/24- CONCLUSIONS:
1. Right dominant circulation with a <20% tapering of the mid LAD immediately after the origin of the diagonal but no other coronary artery disease.
2. Severe mitral valve regurgitation seen on transesophageal echocardiogram.
3. Normal filling pressures (LVEDP = 12 mmHg, PCWP = 13 mmHg at 81.6 kg).
PFT's:
Reports and relevant images were personally reviewed.
-----
Critical Care time 51 mins -- The patient is admitted for acute critical illness for the treatment of vital organ failure and/or prevention of further life-threatening conditions. Total care includes time spent in review of history, physical exam,
medications, hemodynamic/ventilator parameters, laboratory data, imaging and discussion with house staff, pharmacy, respiratory therapy, customs director, and nursing.
[2024-01-30 15:00] LABS: B.E. -1.6 mmol/L; HCO3 22.9 mmol/L (21-28); Ionized Calcium 1.15 mMOL/L (1.15-1.33); O2 Saturation % 99.1 % (94-98); PCO2 37 mmHg (35-48); PO2 125 mmHg (83-108); Potassium 4.2 mMOL/L (3.5-5.1); Sodium 139 mMOL/L (136-145)
[2024-01-30 15:03] LABS: Glucose - Point of Care 107 mg/dl (70-99)
--- NOTE | 2024-01-30 15:09 | PTCARENOTE ---
ABG's reviewed; RT at bedside; Pt extubated at 1505; Pt placed on 6L NC.
--- NOTE | 2024-01-30 15:15 | RESPNOTE ---
Patient extubated to a 6 liter nasal cannula following cpap trial, abg and positive cuff leak test. Incentive spirometry instruction completed
[2024-01-30] MEDS: CALCIUM CHLORIDE 10% SYRINGE 50 MG IV (15:28)
[2024-01-30] MEDS: CALCIUM CHLORIDE 10% SYRINGE 50 ML IV (15:28)
[2024-01-30 15:59] LABS: Glucose - Point of Care 110 mg/dl (70-99)
--- NOTE | 2024-01-30 16:06 | CM ---
pt in OR today, cm to follow
[2024-01-30] MEDS: PACERONE PO (16:10)
[2024-01-30] MEDS: ZOFRAN 4 MG IV (16:15)
[2024-01-30 16:34] LABS: Hematocrit 34.1 % (39.0-52.0); Hemoglobin 11.9 g/dL (13.0-18.0); Platelet Count 262 10^3/uL (130-400)
[2024-01-30] MEDS: ANCEF 5 IV (16:52)
[2024-01-30 17:00] LABS: Glucose - Point of Care 105 mg/dl (70-99)
[2024-01-30] MEDS: LOW STRENGTH ASPIRIN 81 MG PO (17:06)
[2024-01-30] MEDS: REGLAN 10 MG IV (17:33)
--- NOTE | 2024-01-30 17:42 | PTCARENOTE ---
Patient vomited a small amount of bloody mucous and clear emesis. PRN IV Zofran already given at 1615 for nausea. CONSOLIDATION ACCOUNTANT Ren Eric notified and aware - IV Reglan 10 mg ordered and given. Patient states relief of nausea for now.
[2024-01-30] MEDS: LR 250 IV (18:36)
[2024-01-30] MEDS: DILAUDID 0.25 MG IV ×2 (18:44→22:04)
--- NOTE | 2024-01-30 19:07 | PTCARENOTE ---
[place] Christian catheter removed per CVNP B Jeaneth order.
[2024-01-30 19:11] LABS: Glucose - Point of Care 108 mg/dl (70-99)
--- NOTE | 2024-01-30 20:30 | PTCARENOTE ---
Patient received resting in bed watching television and dozing intermittently. Patient A+A+Ox3. No neurological deficits noted. No c/o headache, dizziness or lightheadedness. O2 at 2L via NC. SaO2 95%. One right pleural chest tube - 5ml red
drainage - No air leak, tidaling or crepitus noted. Chest tube dressing intact. Sinus Bradycardia. Heart rate 40-50's. Levophed gtt titration to maintain MAP >65. Epicardial Temporary Pacemaker - VVI Rate 40, Output 14, Sensitivity 1.0.
Patient with no c/o chest pain, pressure or discomfort. Abdomen round, soft, nontender. Hypoactive bowel sounds. No BM. No c/o nausea. No vomiting. Patient tolerating ice chips and sips of water. Christensen catheter - Temperature sensing - Rosi
urine - Outputs as documented. Positive, palpable pulses. No edema. Right I.J. Cordis - Intact - Saline flush 10 ml/hr. Left radial arterial line - Intact - Flushes without difficulty - Waveform within normal limits. Right lateral chest
incision - Intact - Surgical adhesive. Two puncture sites. Right anterior chest dressing. Patient with no c/o back or flank pain. Assessment as documented.
[2024-01-30] MEDS: SENOKOT-S 1 TABLET PO (20:34)
[2024-01-30 21:19] LABS: Glucose - Point of Care 102 mg/dl (70-99)
[2024-01-30] MEDS: NEURONTIN 100 MG PO (22:01)
[2024-01-30] MEDS: PACERONE 200 MG PO (22:02)
[2024-01-30] MEDS: TYLENOL 1000 MG PO (22:03)
[2024-01-30] MEDS: ALBUMIN 5% 250 IV (22:13)
[2024-01-30 23:06] LABS: Glucose - Point of Care 106 mg/dl (70-99)
--- NOTE | 2024-01-30 23:30 | PTCARENOTE ---
Patient sleeping intermittently. IV Dilaudid 0.25mg for pain management. 5% Albumin 12.5 grams 250 ml ordered by CONVEYOR MONITOR for CT Surgery and administered without difficulty. Levophed off. Insulin gtt - Glycemic Protocol. Assessment/Interventions as
documented.
[2024-01-31] VITALS (17 sets, daily range): BP systolic 92–129; BP diastolic 61–86; PULSE 59; O2SAT 94–95; BMI 29.3
--- NOTE | 2024-01-31 00:01 | W.PN.CT ---
Today's Communication / Plan
-
- POD #1
- Doing well. No major events overnight
- Tele review: sinus glen
- Gtt's: insulin, levo off since 2200 hrs yesterday
- PA cath removed on POD #0
- CTs: R pleural 25/105 out in 12/24 hrs
- PW: V wire VVI 40
- UOP 390/1790 in 12/24 hrs
- wean down/off O2, IS use reinforced
- Continue current meds: ASA, amio, Crestor, Lopressor 12.5, Protonix
- Bowel regimen
- OOB, ambulate as tolerated
Assessment / Plan
-
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
annuloplasty) with Dr. Medina POD #1
-Post op KING: Band is well-seated, leaflets are moving well, no residual mitral regurgitation, no perivalvular leak. Mean gradient is 2 mmHg. Normal left ventricular size and function. Normal right ventricular size and function. Mild AI, unchanged.
Trace TR
-HTN
-HLD
-Anxiety/depression
-Mild intermittent asthma
-Osteoarthritis of both hips
-Chronic fatigue
-History of pneumonia/chronic bronchitis
-Hayfever
-Sleep apnea/insomnia
-Frequent infections
-Kidney stones
-Mild TREVOR on HST
-Acute blood loss anemia
-Acute post op respiratory insufficiency
-Acute hyperglycemia
Subjective
Procedure
S/p Radical mitral valve repair (triangular resection of P2 into P1 with primary repair and placement of a single [place]-Slade cord for reinforcement, 34 mm band annuloplasty) 01/30/[address] Medina
-
Date of Service: January 31, 2024
Objective Data
-
PT 16.8 Sec (11.4-14.6) H 01/30/24 11:59
INR 1.38 01/30/24 11:59
APTT 28.3 Sec (23.4-35.0) 01/30/24 11:59
Vital Signs
Vital Signs
Temp Pulse Resp BP Pulse Ox
99.2 F 52 21 88/62 95
01/30/24 23:00 01/30/24 23:05 01/30/24 23:05 01/30/24 23:00 01/30/24 23:[address]
CT Intake/Output/Weight
01/30/24 01/30/24 01/31/24
06:59 18:59 06:59
Intake Total 792.8 / 993.0 200.2 / 993.0
Output Total 1480 / 1675 195 / 1675
Balance -687.2 / -682.0 5.2 / -682.0
SaO2: 95
Physical Exam
-
General: Awake, Oriented and AOx3
Cardiovascular: Regular rate & rhythm, No Murmurs, Rub and No Gallop
Respiratory: Clear, Equal and Decreased Breath Sounds
Sternum: Stable
Incision: Clean, Dry and Intact
Extremities: No Edema and No Erythema
Data Reviewed
-
Lab Results: Results Reviewed
Medications: Active Meds Reviewed
Chest X-Ray: Report Reviewed
ECG: Report Reviewed
[2024-01-31 00:28] LABS: Glucose - Point of Care 109 mg/dl (70-99)
[2024-01-31] MEDS: ANCEF 5 IV ×2 (01:16→08:51)
[2024-01-31] MEDS: DILAUDID 0.5 MG IV (01:16)
[2024-01-31 01:23] LABS: Glucose - Point of Care 91 mg/dl (70-99)
[2024-01-31 02:14] LABS: Glucose - Point of Care 118 mg/dl (70-99)
[2024-01-31 03:19] LABS: Glucose - Point of Care 108 mg/dl (70-99)
[2024-01-31] MEDS: DILAUDID 0.25 MG IV (04:25)
[2024-01-31 04:30] LABS: Hematocrit 32.5 % (39.0-52.0); Hemoglobin 11.2 g/dL (13.0-18.0); Mean Corp Hgb Conc. 34.5 g/dL (33.0-37.0); Mean Corpuscular Hgb 32.4 pg (27.0-31.0); Mean Corpuscular Volume 93.9 fL (80.0-94.0); Platelet Count 196 10^3/uL (130-400); Red Blood Cell Count 3.46 10^6/uL (4.70-6.10); White Blood Cell Count 16.4 10^3/uL (4.8-10.8)
[2024-01-31 04:37] LABS: Blood Urea Nitrogen 17 mg/dl (9-20); Calcium 9.6 mg/dl (8.4-10.2); Carbon Dioxide 23 mmol/L (22-30); Chloride 107 mmol/L (98-107); Estimated Creatinine Clearance 96 ml/min; Glucose 105 mg/dl (70-99); Potassium 4.1 mmol/L (3.5-5.1); Sodium 138 mmol/L (135-145); eGFR > 60.00
[2024-01-31 05:17] LABS: Glucose - Point of Care 103 mg/dl (70-99)
[2024-01-31] MEDS: ROXICODONE 5 MG PO ×4 (05:23→23:17)
[2024-01-31] MEDS: TYLENOL 1000 MG PO ×3 (05:23→23:16)
--- NOTE | 2024-01-31 06:30 | PTCARENOTE ---
Patient A+A+Ox3. No neurological deficits noted. No c/o headache, dizziness or lightheadedness. Patient given CHG bath and linens changed. Left radial arterial line removed without difficulty. Christensen catheter removed without difficulty - Due to
void at 1200pm. Patient OOB to chair with assist x2. Assessment/Interventions as documented.
[2024-01-31 07:08] LABS: Glucose - Point of Care 115 mg/dl (70-99)
--- NOTE | 2024-01-31 07:16 | W.PN.INTV ---
Today's Communication / Plan
Recommendations
Doing well, off pressors/stable on room air
Further postop management per team
Encouraged OOB, PT/OT, IS
Transfer to tele, we will sign off upon transfer
Assessment
-
Patient is a 53-year-old male with previous history of hypertension, hyperlipidemia, moderate mitral regurgitation evaluated as a outpatient for murmur and fatigue. Had KING performed on 12/21/2023 which showed EF 60-65% with mitral valve prolapse and
moderate mitral regurgitation. He underwent exercise stress testing 12/30/[address] depression and chest pain, he was admitted and underwent left heart catheterization 01/02/2024 with severe mitral regurgitation. He then underwent
mitral valve repair by Dr. Medina 01/30/2024 and postoperatively transferred to CVICU for further management.
Severe MR s/p Radical mitral valve repair (triangular resection of P2 into P1 with primary repair and placement of a single [place]-Slade cord for reinforcement, 34 mm band annuloplasty) 01/30/24
Perioperative MV s/p extubation
Chronic fatigue
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
Hypertension
Hyperlipidemia
Overweight, BMI 28
Anxiety/depression
Mild intermittent asthma
Osteoarthritis of both hips
Chronic fatigue
History of pneumonia/chronic bronchitis
Hayfever
Sleep apnea/insomnia
Frequent infections
Kidney stones
Mild TREVOR on HST
Plan
S/p MVR POD #1
Off pressors
ECHO reviewed with normal function
Management of chest tubes per primary service
Pain control
RASS goal of 0 to -1
Intubated for procedure, extubated and doing well
ABG(s) reviewed
CXR with stable postop changes
Maintain supplement oxygen as needed
No prior history of pulmonary disease, had been told in past he has asthma/not confirmed
Chronic cough an issue
Prior PFTs reviewed--in office/normal, can eval cough complaints again as OP
HST with mild TREVOR, CPAP can be tried if needed
Can add nebulizers if needed
Aspiration precautions
Encouraged incentive spirometry, OOB/ambulation/early mobility
Advance diet as tolerated following extubation
GI prophylaxis if indicated for mechanical ventilation >48 hours
Monitor critical I/O's
Christensen/chest tube output
Hb/platelets postoperatively stable
Trend CBC for now
Can transfuse if indicated for Hb <7, plt <50 in surgical patients
DVT prophylaxis including SCDs
Insulin protocol transitioned to off
SQ insulin as indicated per team
Diagnostic Data
Chest X-Ray: 01/30/24- Lines/Tubes/Devices: Endotracheal tube terminates approximately 3.3 cm above the zaid. Right IJ approach [place]-Christian catheter with tip in the pulmonary artery trunk. Single drainage catheter is present, presumably mediastinal.
Postsurgical changes from mitral annuloplasty.
Lungs/Pleura: Low lung volumes with bronchovascular crowding. No consolidation, pleural effusion, or pneumothorax.
CT Scan: CTA 01/03/24- Patent thoracic arterial vasculature without narrowing or significant atherosclerotic disease.
No calcifications involving the mitral valve.
LUNGS/PLEURA: No focal airspace disase. No nodules. No pleural effusions or pneumothorax.
Echo: 12/21/23- Normal biventricular size and systolic function without regional wall motion abnormality. Mitral valve prolapse with partial flail at P2. Mid systolic, eccentric, anteriorly directed moderate mitral regurgitation.
No prior study available for comparison.
[facility] 01/02/24- CONCLUSIONS:
1. Right dominant circulation with a <20% tapering of the mid LAD immediately after the origin of the diagonal but no other coronary artery disease.
2. Severe mitral valve regurgitation seen on transesophageal echocardiogram.
3. Normal filling pressures (LVEDP = 12 mmHg, PCWP = 13 mmHg at 81.6 kg).
PFT's:
Reports and relevant images were personally reviewed.
-----
Critical Care time 35 mins -- The patient is admitted for acute critical illness for the treatment of vital organ failure and/or prevention of further life-threatening conditions. Total care includes time spent in review of history, physical exam,
medications, hemodynamic/ventilator parameters, laboratory data, imaging and discussion with house staff, pharmacy, respiratory therapy, note teller, and nursing.
Subjective Dataa
Subjective Data
Date of Service:
Date of Service: January 31, 2024
Chief Complaint: Mapping Technician Follow Up
Subjective:
no events ON, remains stable
Off pressors/oxygen/insulin
Objective Data
Data Reviewed
Vital Signs / I&O / Oxygen:
Vital Signs
Temp Pulse Resp BP Pulse Ox
99.2 F 62 20 103/66 95
01/31/24 05:00 01/31/24 06:35 01/31/24 05:35 01/31/24 04:00 01/31/24 05:35
Intake and Output
01/30/24 01/31/24 02/01/24
06:59 06:59 06:59
Intake Total 1429.1 / 1429.1
Output Total 1954 / 1954
Balance -525.9 / -525.9
SaO2 [CPAP] 97
SaO2 [SIMV] 95
SaO2 95
Nasal Cannula flow liters per 2
minute
Physical Exam
General: Comfortable and Other (NAD)
HEENT: Normocephalic, Anicteric and Moist Mucous Membranes
Cardiovascular: S1-S2 and Regular Rhythm
Respiratory: Clear, Non-Labored Respirations and Chest Tube
GI: Soft, Non Distended and Non Tender
Neurology: Awake, Alert, Oriented, AO x 3 and No Motor Deficits
Skin: Warm, Dry and Good Color
Labs/Micro/Reports
Lab Data
01/31/24 03:59
01/31/24 03:59
Laboratory Results
01/30/24 01/30/24
11:59 14:38
PT 16.8 H
INR 1.38
APTT 28.3
pH 7.35 7.40
pCO2 41 37
pO2 149 H 125 H
HCO3 22.6 22.9
O2 Delivery Level vent
[2024-01-31] MEDS: TORADOL 15 MG IV ×3 (07:38→19:18)
--- NOTE | 2024-01-31 07:43 | W.PN.ANS.POP ---
Anesthesia Post Operative
- Anesthesia Post Op Note
Vital Signs Stable-See Nursing Note: Yes
Airway Patent: Yes
Adequate Pain Control: Yes
Change in Mental Status: No
Current Postoperative Nausea & Vomiting: No
Anesthesia Complications: No
General Anesthetic Recall: No
Unplanned Admission: No
Post Op Hydration Adequate: Yes
[2024-01-31] MEDS: LOPRESSOR 12.5 MG PO ×2 (08:36→20:46)
[2024-01-31] MEDS: B COMPLEX w/VITAMIN C 1 CAPLET PO (08:36)
[2024-01-31] MEDS: PROTONIX 40 MG PO (08:36)
[2024-01-31] MEDS: LOW STRENGTH ASPIRIN 81 MG PO (08:36)
[2024-01-31] MEDS: THERAGRAN 1 TABLET PO (08:36)
[2024-01-31] MEDS: CRESTOR 40 MG PO (08:36)
[2024-01-31] MEDS: VITAMIN D3 (cholecalciferol) 50 MCG PO (08:37)
[2024-01-31] MEDS: MAGNESIUM OXIDE 500 MG PO ×2 (08:37→20:46)
[2024-01-31] MEDS: PACERONE 200 MG PO ×3 (08:37→23:16)
[2024-01-31] MEDS: BACTROBAN 2% OINTMENT 1 APPLIC NASAL ×2 (08:37→20:46)
[2024-01-31] MEDS: NEURONTIN 100 MG PO ×3 (08:37→23:16)
[2024-01-31] MEDS: SENOKOT-S 1 TABLET PO ×2 (08:37→20:46)
[2024-01-31] MEDS: LIDOCAINE 4% PATCH 1 PATCH TOPICAL (08:37)
[2024-01-31] MEDS: LASIX 40 MG IV (08:51)
--- NOTE | 2024-01-31 08:55 | PTCARENOTE ---
Assumed care of patient at 0700. Pt is awake, alert, and oriented. No complaints of pain. Pt remains SB/SR with HR 50's-60's. BP 104/70 MAP 78. Epicardial V wire in place set to VVI , no pacing noted. Pt received 40mg IV Lasix. Pulse oximetry
96% on 2L nasal cannula. Right pleural chest tube in place draining serosanguineous drainage, no sign of air leak or crepitus. Pt achieving 1000 with IS, continued use encouraged. Pt tolerated clear liquid diet. Remains on insulin gtt per glycemic
protocol. Pt is due to void. Right lateral chest incision approximated with surgical adhesive. Right IJ cordis in place with KVO. Pt currently resting OOB in chair with at bedside.
[2024-01-31 09:00] LABS: Glucose - Point of Care 132 mg/dl (70-99)
[2024-01-31 11:24] LABS: Glucose - Point of Care 103 mg/dl (70-99)
[2024-01-31 11:33] LABS: B.E. - POC -3.7 mmol/L; Glucose - POC 162 mg/dl (65-99); HCO3 - POC 22 mmol/L (21-29); Hematocrit - POC 33 % PCV (42-52); Hemodilution- POC Yes; Hemoglobin Calculated - POC 11.2; PCO2 - POC 40 mmHg (35-45); PO2 - POC 110 mmHg (80-100); POC Comment POST; Potassium - POC 4.1 mmol/L (3.6-5.0); Sodium - POC 143 mmol/L (135-145); pH - POC 7.34 (7.35-7.45)
[2024-01-31] MEDS: FLEXERIL 5 MG PO ×2 (11:44→18:15)
[2024-01-31 12:26] LABS: Glucose - Point of Care 124 mg/dl (70-99)
--- NOTE | 2024-01-31 12:34 | PTCARENOTE ---
Pt ambulated in hallway with PT. Remains SR/SB with HR 50's-60's. BP 129/73 MAP 90 after walking in hallway. V wire insulated per order. Chest tube dressing changed. Pt was able to void yellow urine. Glycemic protocol d/c'd. Pt now resting OOB in
chair awaiting lunch.
[2024-01-31] MEDS: NSS IV (12:38)
[2024-01-31] MEDS: FERRLECIT 110 MG IV (13:55)
--- NOTE | 2024-01-31 15:45 | W.PN.CD ---
Today's Communication / Plan
-
Doing well postop day #1.
At high risk for AF given mitral valve surgery and presence of rub
Impression / Plan
-
BACKGROUND: 53M with with hypertension, dyslipidemia, and severe mitral regurgitation who presented for mitral valve repair
Meal Cook: Dr. Agee
Status post mitral valve repair 01/30/[address] Medina
-Preoperative KING showed flail P2, during cardiac catheterization LVEDP 12 mmHg at 81.6 kg
-Triangular resection of P2 into P1 with primary repair and placement of a single [place]-Slade cord for reinforcement, 34 mm band annuloplast
-EF 60% pre and postoperatively without residual mitral regurgitation, without CON, MG 2
-EKG with sinus rhythm and mild diffuse ST elevation consistent with early pericarditis
-Nothing yet but waiting for A-fib to rear its ugly head
-Overall doing well postop day #1
Hypertension, follow BP
HLD, LDL at goal on rosuvastatin 40 mg
SUBJECTIVE:
Sitting in chair mildly uncomfortable-states he is 'tired'
Physical Exam
Vital Signs/Labs
Vital Signs
Temp Pulse Resp BP Pulse Ox
98.2 F 70 16 129/73 93
01/31/24 11:30 01/31/24 13:30 01/31/24 11:30 01/31/24 12:32 01/31/24 12:32
01/30/24 01/31/24 02/01/24
06:59 06:59 06:59
Actual Weight 175 lb 4.28 oz 181 lb 7.047 oz
01/31/24 03:59
01/31/24 03:59
PT 16.8 Sec (11.4-14.6) H 01/30/24 11:59
INR 1.38 01/30/24 11:59
APTT 28.3 Sec (23.4-35.0) 01/30/24 11:59
Magnesium 2.0 mg/dl (1.6-2.3) 01/31/24 03:59
Physical Exam
Constitutional: No acute distress
EENT: Anicteric
Cardiovascular: Rhythm & rate is regular, S1S2 is normal and Rub present (2 component friction rub)
Respiratory: Respiratory effort normal, Wheeze Absent and Rhonchi Absent
GI: Soft and Non tender
Neuro/Psych: AO x 3 and Motor deficits absent
Data Reviewed
-
Date of Service: January 31, 2024
--- NOTE | 2024-01-31 16:30 | PTCARENOTE ---
Pt with no changes in assessment. Remains OOB in chair. SR with HR 98/61 MAP 73. Pulse oximetry 94% on room air.
--- NOTE | 2024-01-31 18:32 | PTCARENOTE ---
Pt ambulated with RN in hallway. After returning to room pt with increased pain and felt shaky. Remains SR with HR 60's. BP 125/86 MAP 98. Pulse oximetry 91% on room air. PRN Roxicodone administered. CT SCIENTIFIC ILLUSTRATOR Latricia to bedside, instructed to give
Flexeril dose.
[2024-01-31] MEDS: MUCINEX 600 MG PO (20:46)
--- NOTE | 2024-01-31 21:33 | PTCARENOTE ---
Assumed pt care. Walking rounds completed with previous RN. Pt OOB in chair at time of assessment. AAO x 4, reports intermittent pain/discomfort at time of assessment. Pt on RA, POX 93%, CPT performed, productive cough, posterior BS clear/equal, R
pleural CT present & connected to -20 H2O suction, no air leak/crepitus present, serosanguineous drainage present. NSR on monitor, heart tones normal, distal pulses palpable, epicardial v-wire insulated, no edema noted, denies CP. Pt ambulated ~ 250
[address] in hallway - tolerated activity well. BS audible, denies n/v. Voiding without issue. Procedural sites intact. RIJ cordis maintained with KVO. PIV d/c - painful with flushing. See AUG.
--- NOTE | 2024-01-31 23:20 | PTCARENOTE ---
Pt remains OOB in chair to sleep. VS obtained. PRN pain medication provided. No other changes.
[2024-02-01] VITALS (12 sets, daily range): BP systolic 92–128; BP diastolic 58–82; PULSE 55–60; O2SAT 95–98; BMI 29.7
[2024-02-01 04:31] LABS: Hematocrit 30.7 % (39.0-52.0); Hemoglobin 10.6 g/dL (13.0-18.0); Mean Corp Hgb Conc. 34.5 g/dL (33.0-37.0); Mean Corpuscular Hgb 31.8 pg (27.0-31.0); Mean Corpuscular Volume 92.2 fL (80.0-94.0); Mean Platelet Volume 9.4 fL (7.4-10.4); Platelet Count 190 10^3/uL (130-400); Red Blood Cell Count 3.33 10^6/uL (4.70-6.10); Red Cell Dist. Width 13.2 % (11.5-14.5); White Blood Cell Count 13.5 10^3/uL (4.8-10.8)
[2024-02-01 04:55] LABS: Blood Urea Nitrogen 32 mg/dl (9-20); Calcium 9.1 mg/dl (8.4-10.2); Carbon Dioxide 28 mmol/L (22-30); Chloride 102 mmol/L (98-107); Estimated Creatinine Clearance 77 ml/min; Glucose 117 mg/dl (70-99); Magnesium 2.3 mg/dl (1.6-2.3); Potassium 3.8 mmol/L (3.5-5.1); Sodium 134 mmol/L (135-145); eGFR > 60.00
--- NOTE | 2024-02-01 05:09 | PTCARENOTE ---
Pt slept in chair overnight. VS obtained. Labs drawn & sent. No other changes.
--- NOTE | 2024-02-01 05:21 | W.PN.CT ---
Today's Communication / Plan
-
-pod #2
-doing well, no complaints, no issues overnight, ambulates in hallways
-CT output: R pleur 40/190 in 12/24 hrs, no air leak
-diuresed 910cc with 40 iv Lasix on 01/30 - continue
-follow b/l pleur effusions
-will need Echo prior to d/c
-follow BP (90s-low 100s), asymptomatic
-current meds (ASA, Crestor, Lopressor, Amio, Protonix)
-encourage IS (1500 so far), OOB, ambulate
Assessment / Plan
-
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
annuloplasty) with Dr. Medina POD #2
-Post op KING: Band is well-seated, leaflets are moving well, no residual mitral regurgitation, no perivalvular leak. Mean gradient is 2 mmHg. Normal left ventricular size and function. Normal right ventricular size and function. Mild AI, unchanged.
Trace TR
-HTN
-HLD
-Anxiety/depression
-Mild intermittent asthma
-Osteoarthritis of both hips
-Chronic fatigue
-History of pneumonia/chronic bronchitis
-Hayfever
-Sleep apnea/insomnia
-Frequent infections
-Kidney stones
-Mild TREVOR on HST
-Acute postop blood loss anemia
-Acute post op respiratory insufficiency/atelectasis/pleural effusions
-Acute postop hyperglycemia
-Suspected acute postop pericarditis - tx w/ Toradol
Discussed patient care with: Nursing and Care Team
Subjective
Procedure
S/p Radical mitral valve repair (triangular resection of P2 into P1 with primary repair and placement of a single [place]-Slade cord for reinforcement, 34 mm band annuloplasty) 01/30/[address] Medina
-
Date of Service: February 01, 2024
Objective Data
-
PT 16.8 Sec (11.4-14.6) H 01/30/24 11:59
INR 1.38 01/30/24 11:59
APTT 28.3 Sec (23.4-35.0) 01/30/24 11:59
Vital Signs
Vital Signs
Temp Pulse Resp BP Pulse Ox
98.3 F 61 18 97/63 94
01/31/24 23:20 01/31/24 23:16 01/31/24 23:20 01/31/24 23:16 01/31/24 23:20
CT Intake/Output/Weight
01/31/24 01/31/24 02/01/24
06:59 18:59 06:59
Intake Total 636.3 / 1440.3 126.8 / 546.8 420 / 546.8
Output Total 475 / 1955 1060 / 1060
Balance 161.3 / -514.7 -933.2 / -513.2 420 / -513.2
SaO2: 94
Physical Exam
-
General: Awake and AOx3
Cardiovascular: Regular rate & rhythm, No Murmurs and Rub
Respiratory: Decreased Breath Sounds (at bases, R>L. No rales or wheeze)
Incision: Clean, Dry and Dressing Intact (no palpable subcut. emphysema)
Extremities: Other (trace edema b/l, 2+ DPs b/l)
Data Reviewed
-
Lab Results: Results Reviewed
Medications: Active Meds Reviewed
Chest X-Ray: Report Reviewed and Image Reviewed
ECG: Report Reviewed and Image Reviewed
[2024-02-01] MEDS: KCL 40 MEQ PO (05:34)
[2024-02-01] MEDS: TYLENOL 1000 MG PO ×3 (05:35→20:54)
--- NOTE | 2024-02-01 08:00 | PTCARENOTE ---
Patient received from mini shifter RN. No acute issues overnight. Patient AOx3, no subjective pain reported at this time. NSR on telemetry, SpO2 93% on RA. RIJ Cordis w/ KVO infusing. R pleural chest tube at -20 cm suction, no tidaling, no air leak.
Procedural sites CDI. Dr. Medina at bedside discussing with the patient and his the POC, patient indicated understanding. See worklist for full physical exam and interventions.
[2024-02-01] MEDS: VITAMIN D3 (cholecalciferol) 50 MCG PO (09:16)
[2024-02-01] MEDS: CRESTOR 40 MG PO (09:16)
[2024-02-01] MEDS: NEURONTIN 100 MG PO ×3 (09:16→20:53)
[2024-02-01] MEDS: LOW STRENGTH ASPIRIN 81 MG PO (09:16)
[2024-02-01] MEDS: LOPRESSOR 12.5 MG PO ×2 (09:16→20:55)
[2024-02-01] MEDS: MAGNESIUM OXIDE 500 MG PO ×2 (09:16→20:55)
[2024-02-01] MEDS: PACERONE 200 MG PO ×3 (09:16→20:52)
[2024-02-01] MEDS: PROTONIX 40 MG PO (09:16)
[2024-02-01] MEDS: MUCINEX 600 MG PO ×2 (09:16→20:55)
[2024-02-01] MEDS: B COMPLEX w/VITAMIN C 1 CAPLET PO (09:16)
[2024-02-01] MEDS: BACTROBAN 2% OINTMENT 1 APPLIC NASAL ×2 (09:17→22:08)
[2024-02-01] MEDS: LIDOCAINE 4% PATCH TOPICAL (09:17)
[2024-02-01] MEDS: THERAGRAN 1 TABLET PO (09:17)
[2024-02-01] MEDS: SENOKOT-S 1 TABLET PO ×2 (09:17→20:54)
[2024-02-01] MEDS: NSS 500 IV (11:14)
[2024-02-01] MEDS: FLEXERIL 5 MG PO (11:16)
--- NOTE | 2024-02-01 12:11 | PTCARENOTE ---
Patient seen and vital signs obtained. Reports 5/10 pain in R chest, constant but worse with inspiration. 5mg Oxycodone given. Patient resting in bed, assessment of needs ongoing.
[2024-02-01] MEDS: ROXICODONE 5 MG PO (12:13)
[2024-02-01] MEDS: FERRLECIT 110 MG IV (13:22)
--- NOTE | 2024-02-01 14:30 | W.PN.CD ---
Today's Communication / Plan
-
Stable postop remains in sinus continue current therapy
Impression / Plan
-
BACKGROUND: 53M with with hypertension, dyslipidemia, and severe mitral regurgitation who presented for mitral valve repair
Administrative Clerk: Dr. Agee
Status post mitral valve repair 01/30/[address] Medina
-Preoperative KING showed flail P2, during cardiac catheterization LVEDP 12 mmHg at 81.6 kg
-Triangular resection of P2 into P1 with primary repair and placement of a single [place]-Slade cord for reinforcement, 34 mm band annuloplasty
-EF 60% pre and postoperatively without residual mitral regurgitation, without CON, MG 2
Hypertension, follow BP
HLD, LDL at goal on rosuvastatin 40 mg
SUBJECTIVE:
Sitting in chairComfortable. No shortness of breath or palpitations.
Physical Exam
Vital Signs/Labs
Vital Signs
Temp Pulse Resp BP Pulse Ox
98.3 F 54 18 92/58 95
02/01/24 12:10 02/01/24 13:00 02/01/24 12:10 02/01/24 12:11 02/01/24 12:11
01/31/24 02/01/24 02/02/24
06:59 06:59 06:59
Actual Weight 82.3 kg 83.4 kg
02/01/24 04:08
02/01/24 04:08
PT 16.8 Sec (11.4-14.6) H 01/30/24 11:59
INR 1.38 01/30/24 11:59
APTT 28.3 Sec (23.4-35.0) 01/30/24 11:59
Magnesium 2.3 mg/dl (1.6-2.3) 02/01/24 04:08
Physical Exam
Constitutional: No acute distress
Cardiovascular: Rhythm & rate is regular
Respiratory: Wheeze Absent and Rhonchi Absent
GI: Soft and Non tender
Neuro/Psych: Alert
Data Reviewed
-
Date of Service: February 01, 2024
Medical Decision Making: Reviewed Test Results
Medical Tests (PFT, Pathology etc): Report Reviewed by me
Labs: Labs Reviewed by me
--- NOTE | 2024-02-01 15:53 | PTCARENOTE ---
Patient seen, OOB to chair, resting comfortably. No pain reported at this time. Patient ambulated with standby assistance to the bathroom and voided in the urinal. Settled back in the chair and made comfortable. Assessment of needs ongoing, call
conteh with reach.
--- NOTE | 2024-02-01 20:15 | PTCARENOTE ---
Received pt from [facility], pt in chair for assessment; VSS, AAOx3, Sinus glen, C/T dressings C/D/I, temp epicardial v wires insulated, pulses palpable,- edema; lungs clear, diminished in bases, discussed I/S use with pt; pt voiding in urinal; B/S
present in all quadrants, Cordis @KVO;
[2024-02-02] VITALS (11 sets, daily range): BP systolic 105–144; BP diastolic 62–73; PULSE 61; O2SAT 96–98; BMI 29.7
--- NOTE | 2024-02-02 00:38 | PTCARENOTE ---
VSS, Sinus Jamar in 50's, pt assisted back to bed, resting comfortably, nursing assessment unchanged from prior.
[2024-02-02] MEDS: ROXICODONE 5 MG PO ×2 (01:23→12:55)
--- NOTE | 2024-02-02 01:35 | PTCARENOTE ---
Assisted pt into bathroom, pt c/o mid-sternal chest pain 03/29. Assisted pt back to bed, VS- HR 49, B/P 116/67, R 20, P/O 95% RA. ECG obtained. Pain medication given; CT ANGELITA Rowland aware. No new orders at this time.
[2024-02-02 05:03] LABS: Hematocrit 29.8 % (39.0-52.0); Hemoglobin 10.3 g/dL (13.0-18.0); Mean Corp Hgb Conc. 34.6 g/dL (33.0-37.0); Mean Corpuscular Hgb 31.7 pg (27.0-31.0); Mean Corpuscular Volume 91.7 fL (80.0-94.0); Mean Platelet Volume 9.5 fL (7.4-10.4); Platelet Count 184 10^3/uL (130-400); Red Blood Cell Count 3.25 10^6/uL (4.70-6.10); Red Cell Dist. Width 13.2 % (11.5-14.5); White Blood Cell Count 11.4 10^3/uL (4.8-10.8)
[2024-02-02 05:24] LABS: Blood Urea Nitrogen 24 mg/dl (9-20); Calcium 8.9 mg/dl (8.4-10.2); Carbon Dioxide 29 mmol/L (22-30); Chloride 103 mmol/L (98-107); Estimated Creatinine Clearance 96 ml/min; Glucose 96 mg/dl (70-99); Magnesium 2.3 mg/dl (1.6-2.3); Potassium 4.2 mmol/L (3.5-5.1); Sodium 135 mmol/L (135-145); eGFR > 60.00
[2024-02-02] MEDS: TYLENOL 1000 MG PO ×3 (05:55→22:10)
[2024-02-02] MEDS: ANESTHETIC LOZENGE 1 LOZENGE PO (05:59)
[2024-02-02] MEDS: FLEXERIL 5 MG PO (06:04)
--- NOTE | 2024-02-02 06:46 | W.PN.CT ---
Today's Communication / Plan
-
-pod #3
-doing well, ambulates in hallways
-sinus glen, high 40s overnight - on Lopressor 12.5 bid- ? switching to Toprol 12.5 mg qd
-some pleuritic pain at R chest wall - better with Elsie. Likely pericarditis on ECG, + rub - got Toradol earlier
-Echo today
-2v-CXR today
-hypotensive earlier - improved
-current meds (ASA, Crestor, Lopressor, Amio, Protonix)
-will need pw cut prior to d/c
-encourage IS, OOB, ambulate
-possible d/c soon
Assessment / Plan
-
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
annuloplasty) with Dr. Medina on 01/30/24, POD #3
-Post op KING: Band is well-seated, leaflets are moving well, no residual mitral regurgitation, no perivalvular leak. Mean gradient is 2 mmHg. Normal left ventricular size and function. Normal right ventricular size and function. Mild AI, unchanged.
Trace TR
-HTN
-HLD
-Anxiety/depression
-Mild intermittent asthma
-Osteoarthritis of both hips
-Chronic fatigue
-History of pneumonia/chronic bronchitis
-Hayfever
-Sleep apnea/insomnia
-Frequent infections
-Kidney stones
-Mild TREVOR on HST
-Acute postop blood loss anemia
-Acute post op respiratory insufficiency/atelectasis/pleural effusions
-Acute postop hyperglycemia
-Suspected acute postop pericarditis on ECG - tx w/ Toradol
Discussed patient care with: Nursing and Care Team
Subjective
Procedure
S/p Radical mitral valve repair (triangular resection of P2 into P1 with primary repair and placement of a single [place]-Slade cord for reinforcement, 34 mm band annuloplasty) 01/30/[address] Medina
-
Date of Service: February 02, 2024
Objective Data
-
PT 16.8 Sec (11.4-14.6) H 01/30/24 11:59
INR 1.38 01/30/24 11:59
APTT 28.3 Sec (23.4-35.0) 01/30/24 11:59
Vital Signs
Vital Signs
Temp Pulse Resp BP Pulse Ox
98.5 F 51 18 105/69 94
02/02/24 00:31 02/02/24 00:30 02/02/24 00:31 02/02/24 00:30 02/01/24 22:49
CT Intake/Output/Weight
02/01/24 02/01/24 02/02/24
06:59 18:59 06:59
Intake Total 500 / 626.8 520 / 520
Output Total 240 / 1300 620 / 1220 600 / 1220
Balance 260 / -673.2 -100 / -700 -600 / -700
SaO2: 94
Physical Exam
-
General: Awake and AOx3
Cardiovascular: Regular rate & rhythm, No Murmurs and Rub
Respiratory: Decreased Breath Sounds
Incision: Clean, Dry and Dressing Intact
Extremities: Other (trace edema b/l)
Abdomen: soft, mildly distended, nontender, + flatus, no nausea/vomiting, no BM
Data Reviewed
-
Lab Results: Results Reviewed
Medications: Active Meds Reviewed
Chest X-Ray: Report Reviewed and Image Reviewed
ECG: Report Reviewed and Image Reviewed
--- NOTE | 2024-02-02 07:57 | PTCARENOTE ---
assumed care of pt from cold press operator RN. AAOx3, VSS, sinus bradycardia per tele, GRANT Cordis w/ KVO infusing, pox 95% on RA, pt tolerating OOB to chair, plan of care discussed questions encouraged
[2024-02-02] MEDS: PROTONIX 40 MG PO (08:42)
[2024-02-02] MEDS: COLCHICINE 0.6 MG PO (08:42)
[2024-02-02] MEDS: BACTROBAN 2% OINTMENT 1 APPLIC NASAL ×2 (08:42→20:24)
[2024-02-02] MEDS: NEURONTIN 100 MG PO ×3 (08:43→22:10)
[2024-02-02] MEDS: THERAGRAN 1 TABLET PO (08:43)
[2024-02-02] MEDS: LOW STRENGTH ASPIRIN 81 MG PO (08:43)
[2024-02-02] MEDS: CRESTOR 40 MG PO (08:43)
[2024-02-02] MEDS: LASIX 40 MG PO (08:43)
[2024-02-02] MEDS: SENOKOT-S 1 TABLET PO ×2 (08:44→20:33)
[2024-02-02] MEDS: VITAMIN D3 (cholecalciferol) 50 MCG PO (08:44)
[2024-02-02] MEDS: B COMPLEX w/VITAMIN C 1 CAPLET PO (08:44)
[2024-02-02] MEDS: LIDOCAINE 4% PATCH TOPICAL (08:44)
[2024-02-02] MEDS: MUCINEX 600 MG PO ×2 (08:45→20:34)
[2024-02-02] MEDS: MAGNESIUM OXIDE PO (09:08)
[2024-02-02] MEDS: PACERONE PO (09:09)
--- NOTE | 2024-02-02 09:52 | W.PN.CD ---
Today's Communication / Plan
-
- Likely discharge later today
- OK to switch to Toprol 12.5 mg BID and continue.
Impression / Plan
-
BACKGROUND: 53M with with hypertension, dyslipidemia, and severe mitral regurgitation who presented for mitral valve repair
Auto Transmission Mechanic: Dr. Agee
Status post mitral valve repair 01/30/[address] Medina
-Preoperative KING showed flail P2, during cardiac catheterization LVEDP 12 mmHg at 81.6 kg
-Triangular resection of P2 into P1 with primary repair and placement of a single [place]-Slade cord for reinforcement, 34 mm band annuloplasty
-EF 60% pre and postoperatively without residual mitral regurgitation, without CON, MG 2
-Post op ECHO follow up today.
Sinus bradycardia
-Baseline bradycardia
-On low dose Motoprolol 12.5 mg BID - can switch to Toprol 12.5 mg BD.
-Continue low dose nirmal with mitral disease.
Hypertension, follow BP
HLD, LDL at goal on rosuvastatin 40 mg
SUBJECTIVE:
Sitting in chair. Comfortable. No shortness of breath or palpitations.
Physical Exam
Vital Signs/Labs
Vital Signs
Temp Pulse Resp BP Pulse Ox
98.7 F 56 18 116/73 95
02/02/24 07:52 02/02/24 07:35 02/02/24 07:52 02/02/24 07:35 02/02/24 07:52
02/01/24 02/02/24 02/03/24
06:59 06:59 06:59
Actual Weight 83.5 kg
02/02/24 04:53
02/02/24 04:53
PT 16.8 Sec (11.4-14.6) H 01/30/24 11:59
INR 1.38 01/30/24 11:59
APTT 28.3 Sec (23.4-35.0) 01/30/24 11:59
Magnesium 2.3 mg/dl (1.6-2.3) 02/02/24 04:53
Physical Exam
Constitutional: No acute distress and Comfortable
EENT: Anicteric and Moist mucous membranes
Cardiovascular: Rhythm & rate is regular, Pedal edema is absent, JVD pressure is normal and Systolic murmur absent
Respiratory: Respiratory effort normal, Lungs clear to auscul., Wheeze Absent and Crackles Absent
GI: Soft, Non tender and Normal bowel sounds
Neuro/Psych: Alert, Oriented and AO x 3
Other: Skin
Data Reviewed
-
Date of Service: February 02, 2024
Medical Decision Making: Reviewed Test Results and Independent Historian Assessment
EKG: Tracing Personally Visualized and interpreted and Report Reviewed by me
Echo: Report Reviewed by me
Labs: Labs Reviewed by me
Old Records: Reviewed
--- NOTE | 2024-02-02 12:45 | PTCARENOTE ---
Routine assessment unchanged form prior, pain well managed, VSS, Sinus glen per tele
[2024-02-02] MEDS: NSS IV (13:36)
--- NOTE | 2024-02-02 13:36 | W.DCSUMMARY ---
Discharge Summary
Discharge Data
Date of Admission: 01/30/24
Date of Discharge: 02/03/24
-
Pending Results: No
Hospital Course
Primary care physician: Minnie Escobedo
Outpatient barrel drainer: Farzad Agee
Inpatient consultants: [facility]
Procedures:
1. radical mitral valve repair
Primary Diagnosis:
1. Severe mitral valve insufficiency, myxomatous degeneration with torn cords
Secondary Diagnoses:
1. Hyperlipidemia
2. Hypertension
3. GERD
4. mild TREVOR (on home sleep test)>no CPAP use
5. Acute postop surgical blood loss anemia
6. Acute post op respiratory insufficiency/atelectasis/pleural effusions
7. Acute postop pericarditis
8. Post-op volume overload/weight gain-expected
HPI: 53-year-old male was electively admitted on 01/30/2024 for mitral valve repair due to severe mitral insufficiency from myxomatous degeneration and torn cords
Hospital course: Patient underwent radical mitral valve repair (triangular resection of P2 into P1 with primary repair and placement of a single [place]-Slade cord for reinforcement, #34 mm band annuloplasty with Dr. Ivan Medina. Intraoperative KING
EEG reported an EF of 55-60%, no MR, MV mean 2 mmHg. Patient received no intraoperative blood products and returned to CVICU on insulin and Precedex. Patient was extubated at 1500. Bladder catheter was removed on postoperative day #1. Patient
received 40 mg of IV Lasix for bilateral pleural effusions. Postoperative day #2, right pleural chest tube was discontinued and patient ambulated with cardiac rehab. Colchicine was ordered for pericarditis. On postoperative day #3, patient had
sinus bradycardia with rates in the 50s and low blood pressure. He recounts to cardiology and CT surgery that is normal range heart rate is in the mid to high 50s. Cardiology was okay with continuing low-dose beta-caitlyn. Amiodarone (for A-fib
prophylaxis) was discontinued. Patient had predischarge 2 view chest x-ray which reported some segmental atelectasis but no pleural effusion or pneumothorax. A predischarge TTE reported EF of 60 to 65%; MV gradients 8/2 mmHg and no MR. 2
epicardial ventricular pacing wires were clipped to skin level. Postoperative day #4, patient vital signs remained stable and patient's pain level was controlled. Patient will be discharged on Lasix 20 mg daily for 10 days. Patient was instructed
to weigh self daily and report a weight gain of more than 3 pounds in 1 day or 5 pounds in 1 week patient will have repeat BMP in 1 week and be followed by transitional care RN.
Home medication changes:
New:
Colchicine for pericarditis x 1 month
8Lasix. 20 mg daily x 7 days for postoperative weight gain
Stop:
Amlodipine as BP low normal range
Discharge Plan
-
Patient Disposition: Home (Routine Discharge)
Discharge Diagnosis/Procedures: MR/mitral repair
Condition: Good
Diet: No restrictions
Activity: No strenuous activity
Driving Restrictions: Not until seen by your Dr
Bathing Restrictions: OK to Shower
Blood Work: BMP in 1 week
Other Services: Cardiac Rehab
Specialty Instructions: Weigh Daily- Call MD for wt gain/loss 3 lbs overnight/5 lbs in 1 week
Referrals:
[facility] [Outside] - 03/07/24 9:30 am
(Cardiac Rehab Orientation appointment is on March 07, 2024 @ 9:30am.
The Cardiac Rehab gym is located on the first floor of the [facility].)
Mary Linda CRNP [Specified Professional Personl] - 03/21/24 8:40 am (Your appt on Apr 12 @ 9am with Dr Agee was CANCELLED )
Ivan Medina MD [Active] - 02/29/24 2:00 pm
Tila March MD [Family Provider] -
Prescriptions:
New
acetaminophen 325 mg Tablet
650 mg PO Q4HPRN PRN (Reason: mild pain,headache,temp >101F ) Qty: 0 0RF
cyclobenzaprine 10 mg Tablet
5 mg PO Q8HPRN PRN (Reason: muscle spasm) Qty: 20 0RF
colchicine 0.6 mg Tablet
0.6 mg PO DAILY Qty: 30 0RF
metoprolol succinate [Toprol XL] 25 mg tablet extended release 24 hr
25 mg PO DAILY Qty: 30 1RF
gabapentin 100 mg Capsule
100 mg PO TID Qty: 30 0RF
oxycodone 5 mg Tablet
5 mg PO Q6HPRN PRN (Reason: severe pain) Qty: 30 0RF
furosemide [Lasix] 20 mg tablet
20 mg PO DAILY Qty: 10 0RF
Continued
multivitamin Tablet
1 tab PO DAILY
aspirin [Richard Chewable Aspirin] 81 mg Tablet,Chewable
81 mg PO DAILY
rosuvastatin 40 mg Tablet
40 mg PO DAILY
cholecalciferol (vitamin D3) [Vitamin D3] 50 mcg (2,000 unit) Tablet
50 mcg PO DAILY
vitamin [id number] acid 500-400 mcg Tablet
1 tab PO DAILY
Discontinued
amlodipine 5 mg Tablet
5 mg PO DAILY
Discharge Orders:
Discharge Patient (As Directed); Ordered 02/03/24
Ordered By: Latricia Mascorro
Care Plan Goals
Care Plan Goals:
Problem: Readiness for enhanced knowledge related to diagnosis and treatment plan
Goal: Understand your diagnosis and treatment plan needs, including medications if applicable.
Instructions: Know your diagnosis, underlying causes and treatment plan options, including medications if applicable. Consult with your health care team to learn about your diagnosis and treatment plan, including medications if applicable.
Discharge Date and Time
Print Language: GERMAN
--- NOTE | 2024-02-02 14:11 | W.PN.UPDATE ---
Update Note
Progress Note Update
Patient required no postoperative pacing. Insertion site was cleansed with chlorhexidine and 2 epicardial ventricular pacing wires were clipped to skin level.
--- NOTE | 2024-02-02 14:18 | PTCARENOTE ---
pt moaning in pain after being previously medicated, shivering and pt states that 'pain is better but now i am freezing' discussed with CT GERIATRIC NURSING ASSISTANT. orders obtained will follow
[2024-02-02] MEDS: FERRLECIT 110 MG IV (14:59)
[2024-02-02] MEDS: TORADOL 15 MG IV ×2 (15:00→20:34)
--- NOTE | 2024-02-02 15:18 | PTCARENOTE ---
VSS, pt with continued increased pain, assisted to bed, RIJ Cordis removed, assessment unchanged from prior, see MAR for pain management
--- NOTE | 2024-02-02 20:10 | PTCARENOTE ---
Received pt from nightshift; pt sitting in chair for assessment; Pt is AAOx3; VSS, Sinus glen, pulses palpable, - edema; lungs clear, diminished bilaterally, 95% on RA, I/S 1000, pt encouraged use; voiding in bathroom appropriately; B/S present; r
chest incisions approx; discussed plan of care with pt, ambulation encouraged.
[2024-02-02] MEDS: MAGNESIUM OXIDE 500 MG PO (20:33)
--- NOTE | 2024-02-03 00:21 | PTCARENOTE ---
VSS, pt ambulated full loop unassisted, pain managed per protocol, Nursing assessment unchanged from prior.
[2024-02-03] MEDS: TORADOL 15 MG IV ×2 (02:48→09:14)
[2024-02-03 02:53] VITALS: BP 120/71
[2024-02-03 02:54] VITALS: BMI 29.4
--- NOTE | 2024-02-03 03:33 | PTCARENOTE ---
VSS, pt remains in Sinus glen, toradol 15mgs given as scheduled. labs obtained and sent, pt resting comfortably in bed. Nursing assessment unchanged from prior.
[2024-02-03 03:34] LABS: Hematocrit 32.4 % (39.0-52.0); Hemoglobin 11.2 g/dL (13.0-18.0); Mean Corp Hgb Conc. 34.6 g/dL (33.0-37.0); Mean Corpuscular Hgb 31.6 pg (27.0-31.0); Mean Corpuscular Volume 91.5 fL (80.0-94.0); Mean Platelet Volume 9.5 fL (7.4-10.4); Platelet Count 223 10^3/uL (130-400); Red Blood Cell Count 3.54 10^6/uL (4.70-6.10); Red Cell Dist. Width 12.9 % (11.5-14.5); White Blood Cell Count 10.1 10^3/uL (4.8-10.8)
--- NOTE | 2024-02-03 03:43 | W.PN.CT ---
Today's Communication / Plan
-
-pod #4
-no issues overnight, looks and feels better, wants to go home
-weaned off O2 - pOx 94% on RA
-Colchicine and Toradol for pericarditis
-wt is down 2 lbs today after Lasix
-encourage IS, ambulate
-d/c today
Assessment / Plan
-
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
annuloplasty) with Dr. Medina on 01/30/24, POD #4
-Post op KING: Band is well-seated, leaflets are moving well, no residual mitral regurgitation, no perivalvular leak. Mean gradient is 2 mmHg. Normal left ventricular size and function. Normal right ventricular size and function. Mild AI, unchanged.
Trace TR
-HTN
-HLD
-Anxiety/depression
-Mild intermittent asthma
-Osteoarthritis of both hips
-Chronic fatigue
-History of pneumonia/chronic bronchitis
-Hayfever
-Sleep apnea/insomnia
-Frequent infections
-Kidney stones
-Mild TREVOR on HST
-Acute postop blood loss anemia
-Acute post op respiratory insufficiency/atelectasis/pleural effusions
-Acute postop hyperglycemia
-Suspected acute postop pericarditis on ECG - tx w/ Toradol
Discussed patient care with: Nursing and Care Team
Subjective
Procedure
S/p Radical mitral valve repair (triangular resection of P2 into P1 with primary repair and placement of a single [place]-Slade cord for reinforcement, 34 mm band annuloplasty) 01/30/[address] Medina
-
Date of Service: February 03, 2024
Objective Data
-
Lab Results
02/03/24 03:00
PT 16.8 Sec (11.4-14.6) H 01/30/24 11:59
INR 1.38 01/30/24 11:59
APTT 28.3 Sec (23.4-35.0) 01/30/24 11:59
Vital Signs
Vital Signs
Temp Pulse Resp BP Pulse Ox
98.4 F 53 16 120/71 93
02/03/24 02:53 02/03/24 02:53 02/03/24 02:53 02/03/24 02:53 02/03/24 02:53
CT Intake/Output/Weight
02/02/24 02/02/24 02/03/24
06:59 18:59 06:59
Intake Total 480 / 1000 10 / 250 240 / 250
Output Total 600 / 1220 450 / 450
Balance -120 / -220 -440 / -200 240 / -200
SaO2: 93
Physical Exam
-
General: Awake and AOx3
Cardiovascular: Regular rate & rhythm, No Murmurs and Rub
Respiratory: Decreased Breath Sounds
Incision: Clean, Dry and Intact
Extremities: No Edema
Data Reviewed
-
Lab Results: Results Reviewed
Medications: Active Meds Reviewed
Chest X-Ray: Report Reviewed and Image Reviewed
ECG: Report Reviewed and Image Reviewed
[2024-02-03 03:53] LABS: Blood Urea Nitrogen 27 mg/dl (9-20); Calcium 9.2 mg/dl (8.4-10.2); Carbon Dioxide 30 mmol/L (22-30); Chloride 101 mmol/L (98-107); Estimated Creatinine Clearance 86 ml/min; Glucose 92 mg/dl (70-99); Magnesium 2.2 mg/dl (1.6-2.3); Potassium 3.9 mmol/L (3.5-5.1); Sodium 136 mmol/L (135-145); eGFR > 60.00
[2024-02-03] MEDS: TYLENOL 1000 MG PO (07:00)
[2024-02-03 07:35] VITALS: BP 127/69
[2024-02-03] MEDS: THERAGRAN 1 TABLET PO (07:37)
[2024-02-03] MEDS: PROTONIX 40 MG PO (07:37)
[2024-02-03] MEDS: MUCINEX 600 MG PO (07:37)
[2024-02-03] MEDS: VITAMIN D3 (cholecalciferol) 50 MCG PO (07:37)
[2024-02-03] MEDS: LOW STRENGTH ASPIRIN 81 MG PO (07:37)
[2024-02-03] MEDS: B COMPLEX w/VITAMIN C 1 CAPLET PO (07:37)
[2024-02-03] MEDS: SENOKOT-S 1 TABLET PO (07:37)
[2024-02-03] MEDS: NEURONTIN 100 MG PO (07:37)
[2024-02-03] MEDS: CRESTOR 40 MG PO (07:37)
[2024-02-03] MEDS: COLCHICINE 0.6 MG PO (07:37)
[2024-02-03] MEDS: MAGNESIUM OXIDE PO (07:38)
[2024-02-03] MEDS: LASIX 40 MG PO (07:38)
[2024-02-03] MEDS: LIDOCAINE 4% PATCH TOPICAL (07:38)
--- NOTE | 2024-02-03 07:51 | PTCARENOTE ---
Assumed care of patient from shift supervisor RN. AAO x3, states feeling better and eager to go home today. SB/SR on monitor. Room air 94% Abdomen soft and round, positive bowel sounds t/o denies nausea, appetite good. Voiding independently. Pulses
palpable. Plan for day discussed.
--- NOTE | 2024-02-03 08:46 | W.PN.CD ---
Today's Communication / Plan
-
Low dose Metoprolol tartrate 12.5 mg bid
Plan on d/c today
Impression / Plan
-
BACKGROUND: 53M with with hypertension, dyslipidemia, and severe mitral regurgitation who presented for mitral valve repair
Senior Energy Consultant: Dr. Agee
Status post mitral valve repair 01/30/[address] Medina
-Preoperative KING showed flail P2, during cardiac catheterization LVEDP 12 mmHg at 81.6 kg
-Triangular resection of P2 into P1 with primary repair and placement of a single [place]-Slade cord for reinforcement, 34 mm band annuloplasty
-EF 60% pre and postoperatively without residual mitral regurgitation, without CON, MG 2
-Post op ECHO follow up today.
Sinus bradycardia
-Baseline bradycardia
-Metoprolol has been on hold
- recommend restarting low dose
Hypertension, follow BP, has been well controlled
HLD, LDL at goal on rosuvastatin 40 mg
SUBJECTIVE:
Feels 100% better, no new complaints plan for d/c today, has questions in regards to dental procedures after his MVR
Physical Exam
Vital Signs/Labs
Vital Signs
Temp Pulse Resp BP Pulse Ox
98.8 F 78 18 127/69 94
02/03/24 07:41 02/03/24 07:41 02/03/24 07:41 02/03/24 07:35 02/03/24 07:44
02/02/24 02/03/24 02/04/24
06:59 06:59 06:59
Actual Weight 184 lb 1.376 oz 182 lb 5.156 oz
02/03/24 03:00
02/03/24 03:00
PT 16.8 Sec (11.4-14.6) H 01/30/24 11:59
INR 1.38 01/30/24 11:59
APTT 28.3 Sec (23.4-35.0) 01/30/24 11:59
Magnesium 2.2 mg/dl (1.6-2.3) 02/03/24 03:00
Physical Exam
Constitutional: No acute distress
EENT: Anicteric
Cardiovascular: Rhythm & rate is regular
Respiratory: Respiratory effort normal and Lungs clear to auscul.
GI: Soft
Neuro/Psych: AO x 3
Data Reviewed
-
Date of Service: February 03, 2024
EKG: Tracing Personally Visualized and interpreted (sr)
Echo: Tracing Personally Visualized and interpreted and Report Reviewed by me
Labs: Labs Reviewed by me
[2024-02-03] MEDS: BACTROBAN 2% OINTMENT NASAL (09:19)
--- NOTE | 2024-02-03 09:38 | PTCARENOTE ---
Assisted pt into shower, tolerated with out issue. INT and telemetry removed. Assisted with dressing. Discharge instructions reviewed. Questions answered. Wheeled to car by volunteer.
== END 2024-02-03 09:50 | disposition home or self-care (01) | DRG 219 ==
LOC: CVICU 05:03
PROVIDERS: Anesthesiology; Clinical Nurse Specialist Acute Care; Physician Assistant Medical; ADMITTING PHYSICIAN Thoracic Surgery (Cardiothoracic Vascular Surgery); CONSULT PHYSICIAN Internal Medicine; FAMILY PHYSICIAN Family Medicine
PROC: 5A1221Z Performance of Cardiac Output, Continuous (ICD-10-PCS; 2024-01-30)
PROC: B24BZZ4 Ultrasonography of Heart with Aorta, Transesophageal (ICD-10-PCS; 2024-01-30)
PROC: 02U Heart and Great Vessels, Supplement (ICD-10-PCS; 2024-01-30)
DX: I34.0 Nonrheumatic mitral (valve) insufficiency (principal); I51.1 Rupture of chordae tendineae, not elsewhere classified; D62 Acute posthemorrhagic anemia; J90 Pleural effusion, not elsewhere classified; J98.11 Atelectasis; I30.9 Acute pericarditis, unspecified; I10 Essential (primary) hypertension; R73.9 Hyperglycemia, unspecified; E66.3 Overweight; F32.A Depression, unspecified; F41.9 Anxiety disorder, unspecified; J45.20 Mild intermittent asthma, uncomplicated; J44.89 Other specified chronic obstructive pulmonary disease; M16.0 Bilateral primary osteoarthritis of hip; R53.82 Chronic fatigue, unspecified; G47.00 Insomnia, unspecified; G47.33 Obstructive sleep apnea (adult) (pediatric); E78.00 Pure hypercholesterolemia, unspecified; K21.9 Gastro-esophageal reflux disease without esophagitis; R06.89 Other abnormalities of breathing; E87.70 Fluid overload, unspecified; R00.1 Bradycardia, unspecified; Z68.28 Body mass index [BMI] 28.0-28.9, adult; Z79.82 Long term (current) use of aspirin; Z79.899 Other long term (current) drug therapy
CPT/HCPCS: 88305; 93308; 36415; 71045; 71046; 80048; 81003; 82330; 82565; 82805; 82810; 82947; 82962; 83735; 84132; 84302; 84520; 85014; 85018; 85027; 85049; 85610; 85730; 86850; 86900; 86901; 86920; 87070; 93005; 93312; 93320; 93321; 93325; 94002; J2916; P9045

== ENCOUNTER 2024-02-05 18:54 | Observation (INO) | payer BC, SELFPAY ==
[2024-02-05] VITALS (14 sets, daily range): BP systolic 89–128; BP diastolic 57–86; BMI 29.4; BMI 29.3
[2024-02-05 14:30] LABS: % Basophils 0.6 % (0-2); % Eosinophils 3.4 % (0-6); % Immature Granulocytes 0.6 % (0-0.5); % Lymphocytes 11.5 % (20.5-51.1); % Monocytes 6.2 % (1.7-9.3); % Neutrophils 77.7 % (42.2-75.2); Absolute Basophils 0.1 10^3/uL (0-0.2); Absolute Eosinophils 0.5 10^3/uL (0-0.7); Absolute Immature Granulocytes 0.1 10^3/uL (0-0.05); Absolute Lymphocytes 1.8 10^3/uL (1.2-3.4); Absolute Neutrophils 12.2 10^3/uL (1.4-6.5); Hematocrit 38.6 % (39.0-52.0); Hemoglobin 13.1 g/dL (13.0-18.0); Mean Corp Hgb Conc. 33.9 g/dL (33.0-37.0); Mean Corpuscular Hgb 32.6 pg (27.0-31.0); Mean Platelet Volume 8.8 fL (7.4-10.4); Nucleated Red Blood Cells % 0 % (-); Platelet Count 310 10^3/uL (130-400); Red Blood Cell Count 4.02 10^6/uL (4.70-6.10); Red Cell Dist. Width 13.2 % (11.5-14.5); White Blood Cell Count 15.7 10^3/uL (4.8-10.8)
[2024-02-05 14:43] LABS: APTT 31.6 Sec (23.4-35.0)
[2024-02-05 14:51] LABS: ALT (SGPT) 24 U/L (0-50); AST (SGOT) 38 U/L (17-59); Albumin 4.5 g/dl (3.5-5.0); Alkaline Phosphatase 151 U/L (38-126); Blood Urea Nitrogen 16 mg/dl (9-20); Calcium 9.2 mg/dl (8.4-10.2); Carbon Dioxide 25 mmol/L (22-30); Chloride 99 mmol/L (98-107); Estimated Creatinine Clearance 96 ml/min; Glucose 104 mg/dl (70-99); Potassium 4.3 mmol/L (3.5-5.1); Sodium 136 mmol/L (135-145); Total Bilirubin 1.2 mg/dl (0.2-1.3); Total Protein 7.2 g/dl (6.3-8.2); eGFR > 60.00
[2024-02-05 15:00] LABS: NT-proBNP 611 pg/ml; Troponin I 0.189 ng/ml
--- NOTE | 2024-02-05 15:13 | ED.GENMED ---
History of Present Illness
General
Chief Complaint: Chest Pain
Time Seen by Provider: 02/05/24 15:13
History of Present Illness
History of Present Illness:
HPI: The patient had mitral valve repair a few days ago. Last evening he had rather severe pain that lasted for about 20 minutes. This quickly went away. He again had a more severe episode described as pleuritic mostly on the right side. His
pulse ox at home was low. He came in here for further evaluation. Currently he states that his pain is overall improved.
EXAM:
GENERAL: Well appearing but appears uncomfortable and takes shallow breaths
HEENT: Moist oral mucosa
CARDIOVASCULAR: No murmurs, normal heart rate, regular rhythm, moderate right-sided chest wall tenderness, surgical wounds noted
PULMONARY: Very mild respiratory distress, breath sounds are somewhat decreased equally
ABDOMEN: Soft with no peritoneal signs, no tenderness
NEUROLOGIC: Excellent strength all extremities, no coordination deficits
PSYCHIATRIC: Appropriate mental status, normal insight and judgement
EXTREMITIES: Nontender, no edema, moves all extremities equally
SKIN: No rash, no lesions
TIME OF INITIAL ENCOUNTER: 3:15 PM
NUMBER AND COMPLEXITY OF PROBLEMS ADDRESSED AT THE ENCOUNTER
� Chronic conditions affecting care: Mitral valve repair 2023
� Acute Exacerbation and/or Progression of Chronic Illness: This is an acute problem
� Differential Diagnosis includes: Low suspicion for ACS despite elevated troponin as the patient had a recent cath that was unremarkable, pneumothorax, PE, postoperative pain, pleural effusion
AMOUNT AND/OR COMPLEXITY OF DATA TO BE REVIEWED AND ANALYZED
� I performed an independent evaluation of and my interpretation is:
EKG: Sinus 78, frequent PACs
CT: I personally viewed CT imaging and see moderate right-sided pleural effusion with no evidence for PE
X-rays:
Laboratory Studies: The patient's white count is elevated at 15.7, hemoglobin is improved to 13.1
Other:
� Review of other/old records: I reviewed cath report from 01/02/2024 that showed no significant coronary artery disease; the patient had radical mitral valve repair 01/30/[address] Montelongo
� Clinical information was obtained by an independent historian: I spoke to the at bedside
� Prescriptions/Medications Considered but not given:
� Further testing considered but not performed:
RISK OF COMPLICATIONS AND/OR MORBIDITY OR MORTALITY OF PATIENT MANAGEMENT
� Social determinants of health affecting care: Lives at home
� Discussion with other providers: Notified Dr. Montelongo of the patient ED workup�he will admit to his service
� Escalation of care including admission/observation vs risk of discharge considered: The patient's room air sat is around 90%. Will obtain CT imaging to evaluate for PE as there is also an elevated troponin. CTA negative for
PE. The patient will be kept in the hospital and he was given supplemental oxygen.
Past History
Past History
ED Past Medical History: GERD, HTN, Valvular disease and Other (Kidney stones)
ED Past Surgical History: None
Social History
Tobacco: Non-smoker
Alcohol: Occasional
Drug: None
Personal:
Living: with family
Employment: Employed
Family History
Family History: Diabetes, Hypertension and CAD
Phy Exam
Physical Exam
Physical Exam:
See HPI
Scores
Heart Score for Chest Pain Patients
STEMI patient?: Not applicable
Course
Orders/Labs/Results
Orders:
Orders
02/05/24 14:12
ECG [Electrocardiogram (*1)] Urgent
Reason for Study: Chest Pain
EKG- Treatment ONCE
02/05/24 14:23
Complete Blood Count/With Diff Urgent
Comprehensive Metabolic Panel Urgent
NT-proBNP Urgent
PTT Urgent
Troponin I Urgent
02/05/24 15:19
CT Chest Pe Study Urgent
Comment:
Reason For Exam: Pleuritic R CP after MV repair; hypoxia
02/05/24 16:05
HYDROmorphone [Dilaudid] 1 mg IV NOW STA
Ondansetron Injectable [Zofran] 4 mg IV NOW STA
02/05/24 17:20
Activity As Directed
Activity Level: Out of Bed- Ad Dia
Vital Signs As Directed
Frequency: Per unit guidelines
Call for:: SBP > 160, DBP > 110, pulse > 120, temperature > 100.4 F
02/05/24 17:21
Admit Patient As Directed
Co-Sign Provider:
Level of Care: Observation services
Assign to:: IVU
Physician / Group: Ivan Montelongo MD
Diagnosis: Pleural Effusion, S/P MV Repair
Code Status As Directed
Resuscitation Status: Full Code
Acetaminophen [Tylenol] 650 mg PO Q4HPRN PRN
Bisacodyl [Dulcolax] 10 mg RECTAL [id number] PRN
Docusate W/Senna [Senokot-S] 1 tablet PO BIDPRN PRN
Ondansetron Injectable [Zofran] 4 mg IV Q6HPRN PRN
Oxycodone [Roxicodone] 5 mg PO Q4HPRN PRN
Polyethylene Glycol Powder [Miralax] 17 grams PO DAILYPRN PRN
Intake/ Output As Directed
Frequency: Per unit guidelines
Pneumatic Compression Sleeves As Directed
Type: Knee high
Weight As Directed
Frequency: Daily
PRN Pain Medication Management As Directed
May give lesser potent ordered pain med per pt: Yes
preference::
Protocol:: Medication orders for pain may be administered in a
manner that supports deferring to patient preference
when the pt is:
- Requesting an ordered lesser potent pain medication.
Least to most potent pain medications are defined
as: acetaminophen < NSAID < tramadol < opioids
(morphine, oxycodone, hydromorphone).
- Requesting a lesser dose of the same medication IF
ORDERED.
- Requesting a less intrusive route of administration
if both routes are prescribed by the provider (PO <
IV).
Pulse Ox/spot Check [RESP] Routine
Quantity: 1
Rx Incentive Spirometry [RESP] Routine
Frequency: q1h while awake
02/05/24 17:22
Activity As Directed
Activity Level: Out of Bed- Ad Dia
Vital Signs As Directed
Frequency: Per unit guidelines
DX Deep Vein Thrombosis Video Routine
02/05/24 17:25
Cyclobenzaprine HCl [Flexeril] 5 mg PO Q8HPRN PRN
02/05/24 17:27
Consult Interventional Radiology [IRAD CONSULT] Routine
Consulting Provider: Ron Bautista
Was physician already notified: Yes
Reason for Consult/Procedure: right thoracentesis
Acknowledgement that appropriate orders are entered: Yes
02/05/24 22:00
Gabapentin [Neurontin] 100 mg PO TID
02/06/24 Breakfast
NPO
Allow oral meds: Yes
Allow clear liquids: Sips of Clears
Basic Metabolic Panel IN AM
Complete Blood Count/No Diff IN AM
CR Chest Portable - 1 View IN AM
Comment:
Reason For Exam: Pleural Effusion
Reason Study Needs to be Portable: Unable to Transport
02/06/24 08:00
Aspirin Chewable [Low Strength Aspirin] 81 mg PO DAILY
Cholecalciferol (Vitamin D3) [VITAMIN D3 (cholecalciferol)] 50 mcg PO DAILY
Colchicine 0.6 mg PO DAILY
Furosemide [Lasix] 20 mg PO DAILY
Metoprolol Xl [Toprol Xl] 25 mg PO DAILY
Multivitamin [Theragran] 1 tablet PO DAILY
Rosuvastatin Calcium [Crestor] 40 mg PO DAILY
vitamin X28-tycca acid 1 tablet PO DAILY
Abnormal Lab Results
02/05/24
14:23
WBC 15.7 H 10^3/uL
(4.8-10.8)
RBC 4.02 L 10^6/uL
(4.70-6.10)
Hct 38.6 L %
(39.0-52.0)
MCV 96.0 H fL
(80.0-94.0)
MCH 32.6 H pg
(27.0-31.0)
Abs Immat Gran (auto) 0.1 H 10^3/uL
(0-0.05)
Absolute Neuts (auto) 12.2 H 10^3/uL
(1.4-6.5)
Absolute Monos (auto) 1.0 H 10^3/uL
(0.1-0.6)
Immature Gran % 0.6 H %
(0-0.5)
Neutrophils % 77.7 H %
(42.2-75.2)
Lymphocytes % 11.5 L %
(20.5-51.1)
Glucose 104 H mg/dl
(70-99)
Alkaline Phosphatase 151 H U/L
(38-126)
Troponin I 0.189 H* ng/ml
02/05/24 14:23
02/05/24 14:23
Vital Signs
Initial and Last Documented VS:
Initial Vital Signs
Temp Pulse Resp BP Pulse Ox
99.0 F 75 20 128/86 97
02/05/24 14:09 02/05/24 14:09 02/05/24 14:09 02/05/24 14:09 02/05/24 14:09
Last Documented Vital Signs
Temp Pulse Resp BP Pulse Ox
99.0 F 75 25 116/65 91
02/05/24 14:09 02/05/24 16:00 02/05/24 16:00 02/05/24 16:00 02/05/24 15:45
*Critical Care Note
Total Time (30-74mins, 75-104mins- exclusive of procedures): Not Applicable
ED Attending Note
-
Portions of this chart may have been created with voice recognition software.� Occasional wrong word or��sound alike� substitutions may have occurred due to the inherent limitations of voice recognition software.
Discharge Plan
Departure
Patient Disposition: Admit
Date of Disposition: 02/05/24
Time of Disposition: 17:19
Presentation/result/management discussed w/ accepting MD/DO: dr montelongo
Discharge Problem:
Pleural effusion
Prescriptions:
No Action
multivitamin Tablet
1 tab PO DAILY
aspirin [Richard Chewable Aspirin] 81 mg Tablet,Chewable
81 mg PO DAILY
rosuvastatin 40 mg Tablet
40 mg PO DAILY
cholecalciferol (vitamin D3) [Vitamin D3] 50 mcg (2,000 unit) Tablet
50 mcg PO DAILY
vitamin L65-svmoy acid 500-400 mcg Tablet
1 tab PO DAILY
acetaminophen 325 mg Tablet
650 mg PO Q4HPRN PRN (Reason: mild pain,headache,temp >101F ) Qty: 0 0RF
cyclobenzaprine 10 mg Tablet
5 mg PO Q8HPRN PRN (Reason: muscle spasm) Qty: 20 0RF
colchicine 0.6 mg Tablet
0.6 mg PO DAILY Qty: 30 0RF
metoprolol succinate [Toprol XL] 25 mg tablet extended release 24 hr
25 mg PO DAILY Qty: 30 1RF
gabapentin 100 mg Capsule
100 mg PO TID Qty: 30 0RF
oxycodone 5 mg Tablet
5 mg PO Q6HPRN PRN (Reason: severe pain) Qty: 30 0RF
furosemide [Lasix] 20 mg tablet
20 mg PO DAILY Qty: 10 0RF
Referrals:
Tila March MD [Family Provider] -
Interventions
Interventions:
*Risk Screen - Suicide Last Done: 02/05/24 14:09
*General Assessment Last Done: 02/05/24 14:09
*Neglect/Abuse Screening Last Done: 02/05/24 14:09
ED- Fall Risk Assessment Last Done: 02/05/24 14:45
*ED COVID-19 Vaccine History Last Done: 02/05/24 14:45
ED- Cardiac Assessment Last Done: 02/05/24 14:45
Discharge Date and Time
Print Language: UPPER SORBIAN
[2024-02-05] MEDS: ZOFRAN 4 MG IV (16:08)
[2024-02-05] MEDS: DILAUDID 1 MG IV (16:09)
--- NOTE | 2024-02-05 17:45 | HPS.HSE ---
Family Physician
-
Family Physician: Tila March
Chief Complaint
-
Shortness of breath, chest pain
History of Present Illness
The patient is a 53-year-old white male who is well-known to our service. He underwent mitral valve repair with a 34 mm annuloplasty band and Granville-Slade christian-cords x 1 on 01/30/[address] Ivan Medina. This was done via minimally invasive heart port
approach. Patient had an essentially unremarkable postoperative course and was discharged home in 4 days. He was treated for acute pericarditis during his stay. Over the past couple of days the patient has noticed progressively worsening
shortness of breath and intermittent chest pain. The chest pain lasts 10 to 20 minutes and is relieved with pain medications however the shortness of breath has been progressive. Today he had another episode and decided to check his oxygen
saturations with a home device. He states at that point the oxygen saturations were reading around 85%. He contacted our service and was recommended to seek emergency room evaluation. CT scan in the emergency department is negative for pulmonary
embolus however does show a new moderate right pleural effusion with compressive atelectasis. Lab studies are overall unremarkable. EKG shows continued evidence of pericarditis which correlates with his prior history. Given these findings in
conjunction with hypoxia and chest pain we are asked to admit the patient for further management.
The patient is currently resting comfortably on nasal cannula oxygen. He is accompanied by his . He states that he does feel somewhat better since coming to the hospital and being placed on oxygen. He offers no other complaints. He denies
fevers chills or feeling ill. His incisions are healing well and without drainage or redness. He takes his medications as prescribed.
Medical History
Past Medical History
Past Medical History: Reports Other
Additional Past Medical History:
-Severe MV Insufficiency s/p repair
-HTN
-HLD
-Anxiety/depression
-Mild intermittent asthma
-Osteoarthritis of both hips
-Chronic fatigue
-History of pneumonia/chronic bronchitis
-Hayfever
-Sleep apnea/insomnia
-Frequent infections
-Kidney stones
-Mild TREVOR on HST
-Acute postop blood loss anemia on prior admission
-Acute post op respiratory insufficiency/atelectasis/pleural effusions
-Acute postop hyperglycemia on prior admission
-Acute postop pericarditis on ECG - tx w/ Toradol discharged on colchicine
Past Surgical History: Reports Other
Additional Past Surgical History:
radical mitral valve repair (triangular resection of P2 into P1 with primary repair and placement of a single Granville-Slade cord for reinforcement, 34 mm band annuloplasty) with Dr. Medina on 01/30/24
KING: Band is well-seated, leaflets are moving well, no residual mitral regurgitation, no perivalvular leak. Mean gradient is 2 mmHg. Normal left ventricular size and function. Normal right ventricular size and function. Mild AI, unchanged. Trace TR
Social History
Tobacco: Non-smoker
Alcohol: Occasional
Drug: None
Family History
Family History: Not pertinent
Allergies / Home Medications
Allergies reflects when Allergies were last updated in [facility].
Home Medications with original date entered in [facility]
Allergy/Medication List:
Acetaminophen 650 mg p.o. every 4 hours as needed mild pain
Aspirin 81 mg p.o. daily
Cholecalciferol 50 mcg p.o. daily
Colchicine 0.6 mg p.o. daily
Cyclobenzaprine 5 mg p.o. every 8 hours as needed muscle spasms
Furosemide 20 mg p.o. daily
Gabapentin 100 mg p.o. 3 times daily
Metoprolol succinate 25 mg p.o. daily
Multivitamin 1 tablet p.o. daily
Oxycodone 5 mg p.o. every 6 hours as needed moderate to severe pain
Rosuvastatin 40 mg p.o. daily
Vitamin B12/folic acid 1 tab p.o. daily
Review of Systems
-
History Source: Patient
A 12 point ROS was completed and negative except as noted: Yes
Respiratory: Reports Trouble Breathing
Cardiac: Reports Chest Pain
Physical Exam
Vital Signs
Vital Signs
Temp Pulse Resp BP Pulse Ox
99.0 F 75 25 116/65 91
02/05/24 14:09 02/05/24 16:00 02/05/24 16:00 02/05/24 16:00 02/05/24 15:45
Physical Exam
General: Well Developed, Well Nourished and No Apparent Distress
HEENT: NormoCephalic and Anicteric
Respiratory: Decreased Breath Sounds (Right lower lung bess)
Cardiac: S1/S2 and Regular Rhythm
GI: Soft, Non Tender and Non Distended
Rectal: Deferred by Provider
Musculoskeletal: No Edema
Skin: Warm, Dry and Other (Right chest incisions healing to satisfaction. Clean dry and intact with no erythema or drainage)
Neuro: Awake, Alert and Oriented
Psych: Calm
Laboratory Results
-
02/05/24 14:23
02/05/24 14:23
Laboratory Results
APTT 31.6 Sec (23.4-35.0) 02/05/24 14:23
Total Bilirubin 1.2 mg/dl (0.2-1.3) 02/05/24 14:23
AST 38 U/L (17-59) 02/05/24 14:23
ALT 24 U/L (0-50) 02/05/24 14:23
Alkaline Phosphatase 151 U/L (38-126) H 02/05/24 14:23
Troponin I 0.189 ng/ml H* 02/05/24 14:23
Data Reviewed
-
Diagnostic Radiology: Image Personally Visualized and interpreted
CT Scan: Image Personally Visualized and interpreted
Lab Data: Labs Reviewed by me
Old Records: Reviewed
Impression/Plan
-
IMPRESSION:
1, Right pleural effusion with compressive atelectasis and hypoxia
2. Status post radical mitral valve repair via heart port approach utilizing a 34 mm annuloplasty band with Granville-Slade christian-cord x 1 on 01/30/[address] Ivan Medina
3. Acute postop pericarditis
PLAN:
1. Right pleural effusion status post mitral valve repair: Given that this is coupled with hypoxia and chest pain the patient will need a therapeutic thoracentesis. I reached out to the interventional radiology team to coordinate this for tomorrow
morning. N.p.o. after midnight. Hold anticoagulants for now. Daily chest x-ray.
2. Status post mitral valve repair: Continue outpatient medications. Aspirin 81 mg daily. Oxycodone, acetaminophen, gabapentin, cyclobenzaprine for pain. No obvious murmur on exam.
3. Acute postoperative pericarditis: Still with evidence of pericarditis on EKG. This does correlate with the patient's complaints of chest discomfort. The patient was treated with Toradol prior admission. I will order this scheduled given that
he is having continued chest discomfort. I will also continue his outpatient colchicine 0.6 mg daily. Will also start the patient on a Medrol dose pack taper.
4. Leukocytosis: White count is up to 15.7. This likely correlates with the patient's acute pericarditis. He is afebrile and incisions are healing to satisfaction. Monitor closely. May increase with steroids.
5. Elevated troponin: This is likely related to his postop state as well as ongoing acute pericarditis. He has no significant coronary disease on preoperative cardiac catheterization.
I discussed this assessment and plan with Dr. Ivan Medina who is in agreement. We will admit the patient to observation status with plans for right thoracentesis in the morning with planned discharge in the afternoon barring any new developments.
I discussed the nature of this patient's condition with him and his family, described a thoracentesis procedure to them and answered their questions to their satisfaction.
[2024-02-05] MEDS: TORADOL 15 MG IV (19:48)
[2024-02-05] MEDS: MEDROL 24 MG PO (20:03)
--- NOTE | 2024-02-05 21:53 | PTCARENOTE ---
Addendum entered by Yana Martino RN 02/05/24 21:56:
One dose of 15mg IV toradol at 1948
Original Note:
Pt. received from ED at change of shift. Pt. seen and assessed in room. Pt. AOx3, with SOB and 4/10 b/L chest pain with deep inspiration. IV Toradol given for pain. Currently on 2L O2 satting at 92-95%. All other VS WNL, tele reading NSR with
occasional PVCs. Continuing to monitor pt at this time.
[2024-02-05] MEDS: NEURONTIN 100 MG PO (23:04)
[2024-02-06] MEDS: TORADOL IV ×3 (00:28→11:58)
[2024-02-06 02:50] VITALS: BP 94/62
[2024-02-06 03:30] LABS: Hematocrit 33.7 % (39.0-52.0); Mean Corp Hgb Conc. 35.6 g/dL (33.0-37.0); Mean Corpuscular Hgb 32.2 pg (27.0-31.0); Mean Corpuscular Volume 90.3 fL (80.0-94.0); Mean Platelet Volume 8.4 fL (7.4-10.4); Platelet Count 277 10^3/uL (130-400); Red Blood Cell Count 3.73 10^6/uL (4.70-6.10); Red Cell Dist. Width 13.1 % (11.5-14.5); White Blood Cell Count 14.8 10^3/uL (4.8-10.8)
[2024-02-06 03:47] LABS: Blood Urea Nitrogen 22 mg/dl (9-20); Carbon Dioxide 21 mmol/L (22-30); Chloride 103 mmol/L (98-107); Estimated Creatinine Clearance 86 ml/min; Glucose 132 mg/dl (70-99); Magnesium 2.2 mg/dl (1.6-2.3); Sodium 135 mmol/L (135-145); eGFR > 60.00
--- NOTE | 2024-02-06 03:48 | PTCARENOTE ---
EKG and AM blood work completed around 0320. Awaiting results of blood work. EKG reading NSR with possible ST elevation, EKG remains unchanged from ED. Pt. has no pain at this time. VS: BP 94/62, HR 64, O2: 93% on 2L NC, temp: 97.9, 0/10 pain.
Continuing to monitor pt at this time.
[2024-02-06 07:44] VITALS: BP 109/77
[2024-02-06] MEDS: TOPROL XL 25 MG PO (07:47)
[2024-02-06] MEDS: LOW STRENGTH ASPIRIN 81 MG PO (07:47)
[2024-02-06] MEDS: PROTONIX 20 MG PO (07:47)
--- NOTE | 2024-02-06 08:01 | PTCARENOTE ---
Assumed care of pt from night RN. Pt received awake and alert, Ox3. VSs, CM shows NSR 70's, POX 93-95% on 3L N/C. Crackles auscultated [address] bil[address]. He denies any pain or discomfort at this time. He remains NPO for thor today.
--- NOTE | 2024-02-06 08:10 | PTCARENOTE ---
Pt to IR for thoracentesis, sent to dept on 3 L, N/C.
[2024-02-06 08:20] VITALS: BP 124/80; BP_SYST 68
[2024-02-06 08:53] VITALS: BP 115/66
--- NOTE | 2024-02-06 09:30 | W.DCSUMMARY ---
Discharge Summary
Discharge Data
Date of Admission: 02/05/24
Date of Discharge: 02/06/24
Total time spent discharging patient (in min): 25
-
Pending Results: No
Hospital Course
Primary care physician: Minnie Escobedo
Outpatient conductor yard: Farzad Agee
Inpatient consultants: Interventional radiology
Procedures:
1. Right thoracentesis
Primary Diagnosis:
1. Right pleural effusion
Secondary Diagnoses:
1. Postpericardiotomy syndrome
HPI: 53-year-old male who was recently discharged on 02/01 status post mitral valve repair with #34 mm annuloplasty band was readmitted after he had progressively worsening shortness of breath and intermittent chest pain.
Hospital course: Patient was readmitted on 02/04 for progressive shortness of breath and chest pain. Found to be mildly hypoxic with oxygen saturations around 85%. His CAT scan in the emergency department was negative for pulmonary embolism however
did show a new moderate right pleural effusion. He also complained of chest pain but was resolved with IV Toradol and was started on a Solu-Medrol taper. On 02/05 patient went to interventional radiology and received a right thoracentesis in which
600ml of serosanguineous fluid was drained. He was deemed stable for discharge and prescriptions were sent to his preferred pharmacy.
Home medication changes:
see below
Discharge Plan
-
Patient Disposition: Home (Routine Discharge)
Discharge Diagnosis/Procedures: Right Pleural effusion s/p Thoracentesis
Condition: Fair
Diet: 2 Gram Sodium
Activity: No strenuous activity
Driving Restrictions: Not until seen by your Dr
Bathing Restrictions: OK to Shower
Others Tests: 2-View CXR in 1 week
Other Services: Cardiac Rehab
Specialty Instructions: Weigh Daily- Call MD for wt gain/loss 3 lbs overnight/5 lbs in 1 week
Referrals:
Ivan Medina MD [Active] - 02/29/24 2:00 pm
Tila March MD [Family Provider] -
Prescriptions:
New
methylprednisolone [Medrol (Ricky)] 4 mg tablets,dose pack
See Rx Instructions .ROUTE .COMPLEX Qty: 21 0RF
Rx Instructions:
orally per package directions
Continued
multivitamin Tablet
1 tab PO DAILY
aspirin [Richard Chewable Aspirin] 81 mg Tablet,Chewable
81 mg PO DAILY
rosuvastatin 40 mg Tablet
40 mg PO DAILY
cholecalciferol (vitamin D3) [Vitamin D3] 50 mcg (2,000 unit) Tablet
50 mcg PO DAILY
vitamin X19-nsnks acid 500-400 mcg Tablet
1 tab PO DAILY
acetaminophen 325 mg Tablet
650 mg PO Q4HPRN PRN (Reason: mild pain,headache,temp >101F ) Qty: 0 0RF
cyclobenzaprine 10 mg Tablet
5 mg PO Q8HPRN PRN (Reason: muscle spasm) Qty: 20 0RF
colchicine 0.6 mg Tablet
0.6 mg PO DAILY Qty: 30 0RF
metoprolol succinate [Toprol XL] 25 mg tablet extended release 24 hr
25 mg PO DAILY Qty: 30 1RF
gabapentin 100 mg Capsule
100 mg PO TID Qty: 30 0RF
oxycodone 5 mg Tablet
5 mg PO Q6HPRN PRN (Reason: severe pain) Qty: 30 0RF
furosemide [Lasix] 20 mg tablet
20 mg PO DAILY Qty: 10 0RF
Discharge Orders:
Discharge Patient (As Directed); Ordered 02/06/24
Ordered By: Jordana Eric
Discharge Date and Time
Print Language: THAI
--- NOTE | 2024-02-06 10:00 | PTCARENOTE ---
Pt returned from [facility] 600 ml's aspirated from right posterior lung. Bandaid remains CDI. Pt for D/C later today.
--- NOTE | 2024-02-06 10:11 | CM ---
Reviewed chart. Met with Mr. Koo to review discharge plans. He states prior to admission he resides with his spouse in a one story home without any steps to enter. He states prior to admission he was independent with ambulation and adls. He states
he does not have any DME in the home. He states he has a prescription plana and uses [facility]. The discharge plan is to return home with his spouse and a home visit by the Cardiothoracic Transitional Care Nurse when medically stable.
[2024-02-06] MEDS: MEDROL 20 MG PO (10:16)
[2024-02-06] MEDS: THERAGRAN 1 TABLET PO (10:17)
[2024-02-06] MEDS: COLCHICINE 0.6 MG PO (10:17)
[2024-02-06] MEDS: LASIX 20 MG PO (10:18)
[2024-02-06] MEDS: VITAMIN D3 (cholecalciferol) 50 MCG PO (10:18)
[2024-02-06] MEDS: CRESTOR 40 MG PO (10:18)
[2024-02-06] MEDS: NEURONTIN 100 MG PO (10:18)
[2024-02-06 11:32] VITALS: BP 118/67
--- NOTE | 2024-02-06 12:13 | PTCARENOTE ---
All D/C info reviewed ith pt, all questions answered. Pt D/C'd home with .
== END 2024-02-06 12:14 | disposition home or self-care (01) ==
LOC: IVU 18:54
PROVIDERS: Emergency Medicine; Physician Assistant Medical; ADMITTING PHYSICIAN Thoracic Surgery (Cardiothoracic Vascular Surgery); EMERGENCY PHYSICIAN Emergency Medicine; FAMILY PHYSICIAN Family Medicine
DX: J90 Pleural effusion, not elsewhere classified (principal); R07.9 Chest pain, unspecified; R79.89 Other specified abnormal findings of blood chemistry; I10 Essential (primary) hypertension; K21.9 Gastro-esophageal reflux disease without esophagitis; E78.5 Hyperlipidemia, unspecified; F41.9 Anxiety disorder, unspecified; F32.A Depression, unspecified; G47.33 Obstructive sleep apnea (adult) (pediatric); J45.20 Mild intermittent asthma, uncomplicated; M16.0 Bilateral primary osteoarthritis of hip; D72.829 Elevated white blood cell count, unspecified; I49.1 Atrial premature depolarization; J98.11 Atelectasis; K44.9 Diaphragmatic hernia without obstruction or gangrene; Z87.442 Personal history of urinary calculi; Z83.3 Family history of diabetes mellitus; Z82.49 Family history of ischemic heart disease and other diseases of the circulatory system; Z79.82 Long term (current) use of aspirin
CPT/HCPCS: 32555; 71045; 71275; 80048; 80053; 83735; 83880; 84484; 85025; 85027; 85730; 93005; 96374; 96375; 99285; G0378; Q9967

== ENCOUNTER 2024-02-08 18:16 | Emergency (ER) | payer BC, SELFPAY ==
[2024-02-08 18:32] VITALS: BP 133/83
[2024-02-08 18:49] VITALS: BP 114/82
[2024-02-08 19:00] VITALS: BP 139/78
[2024-02-08 19:07] LABS: Hematocrit 35.1 % (39.0-52.0); Hemoglobin 12.2 g/dL (13.0-18.0); Mean Corp Hgb Conc. 34.8 g/dL (33.0-37.0); Mean Corpuscular Hgb 31.5 pg (27.0-31.0); Mean Corpuscular Volume 90.7 fL (80.0-94.0); Mean Platelet Volume 8.7 fL (7.4-10.4); Platelet Count 421 10^3/uL (130-400); Red Blood Cell Count 3.87 10^6/uL (4.70-6.10); White Blood Cell Count 10.8 10^3/uL (4.8-10.8)
[2024-02-08 19:22] LABS: ALT (SGPT) 66 U/L (0-50); AST (SGOT) 47 U/L (17-59); Albumin 4.3 g/dl (3.5-5.0); Alkaline Phosphatase 147 U/L (38-126); Blood Urea Nitrogen 29 mg/dl (9-20); Calcium 9.6 mg/dl (8.4-10.2); Carbon Dioxide 24 mmol/L (22-30); Chloride 104 mmol/L (98-107); Glucose 179 mg/dl (70-99); Potassium 4.3 mmol/L (3.5-5.1); Sodium 142 mmol/L (135-145); Total Bilirubin 0.7 mg/dl (0.2-1.3); Total Protein 7.2 g/dl (6.3-8.2); eGFR > 60.00
[2024-02-08 19:42] LABS: Troponin I 0.041 ng/ml
[2024-02-08 20:00] VITALS: BP 110/72
--- NOTE | 2024-02-08 20:02 | ED.GENMED ---
History of Present Illness
General
Chief Complaint: Heart Rate Problem
Time Seen by Provider: 02/08/24 18:52
History of Present Illness
History of Present Illness:
Patient is a 53-year-old man who was recently discharged on February 01 after having a mitral valve repair and then discharged again on February 05 after being admitted for shortness of breath and found to have pleural effusion that was drained
presenting to the emergency department elevated heart rate. Patient states that he was sitting at rest when he had sudden onset palpitations. His heart rate was anywhere from the 140s to the 170s. He did have some right-sided chest pain at that
time though he states that it is at his incision and has been ongoing since his surgery. He did feel lightheaded dizzy. He did not have a syncopal event. He came to the emergency department were it resolved without any intervention. At this time
he feels like he is back to his normal self however he is having some right-sided chest pain at the incision site. No leg swelling. No shortness of breath. No nausea or vomiting. No history of blood clots. Per chart it appears that patient did
have
Pericarditis and is on steroids for it. His chest pain is not positional.
Past History
Past History
ED Past Medical History: GERD, HTN, Valvular disease and Other (Kidney stones)
ED Past Surgical History: None
Social History
Tobacco: Non-smoker
Alcohol: Occasional
Drug: None
Personal:
Living: with family
Employment: Employed
Family History
Family History: Diabetes, Hypertension and CAD
Phy Exam
Physical Exam
Physical Exam:
GENERAL: in no acute distress
HEENT: normocephalic, extraocular movements intact, moist oral mucosa
NECK: normal inspection
Chest: Well-healing incisional scars
RESPIRATORY: no respiratory distress, clear to auscultation bilaterally
CARDIOVASCULAR: regular rate and rhythm
ABDOMEN/: soft, non-distended, non-tender to palpation, no rebound or guarding
EXTREMITIES: non-tender, no edema/swelling
NEUROLOGIC: awake and alert, moves all extremities
SKIN: warm
Course
Orders/Labs/Results
Orders:
Orders
02/08/24 18:18
ECG [Electrocardiogram (*1)] Urgent
Reason for Study: Palpitations
EKG- Treatment ONCE
02/08/24 18:44
Electrocardiogram (*1) Urgent
Reason for Study: Chest Pain
EKG- Treatment ONCE
02/08/24 18:58
Comprehensive Metabolic Panel Urgent
Magnesium Urgent
Comment: ADDON
02/08/24 19:00
Complete Blood Count/No Diff Urgent
Troponin I Urgent
02/08/24 19:03
EKG [Electrocardiogram (*1)] Urgent
Reason for Study: Chest Pain
EKG- Treatment ONCE
02/08/24 19:21
CT Chest Pe Study Urgent
Comment:
Reason For Exam: tachycardia
02/08/24 20:06
Add On- LAB Stat
Tests Added?: magnesium
02/08/24 21:51
Troponin I Routine
Abnormal Lab Results
02/08/24 02/08/24
18:58 19:00
RBC 3.87 L 10^6/uL
(4.70-6.10)
Hgb 12.2 L g/dL
(13.0-18.0)
Hct 35.1 L %
(39.0-52.0)
MCH 31.5 H pg
(27.0-31.0)
Plt Count 421 H D 10^3/uL
(130-400)
BUN 29 H mg/dl
(9-20)
Glucose 179 H mg/dl
(70-99)
ALT 66 H U/L
(0-50)
Alkaline Phosphatase 147 H U/L
(38-126)
Troponin I 0.041 H* ng/ml
02/08/24 19:00
02/08/24 18:58
Vital Signs
Initial and Last Documented VS:
Initial Vital Signs
Temp Pulse Resp BP Pulse Ox
98.1 F 68 20 133/83 97
02/08/24 18:32 02/08/24 18:32 02/08/24 18:32 02/08/24 18:32 02/08/24 18:32
Last Documented Vital Signs
Temp Pulse Resp BP Pulse Ox
98.1 F 70 18 120/76 97
02/08/24 18:32 02/08/24 21:00 02/08/24 20:30 02/08/24 21:00 02/08/24 21:00
MDM/Problems Addressed
Differential Diagnosis Includes:
Patient is a 53-year-old male with recent mitral valve repair recent admission for pleural effusion requiring thoracentesis, pericarditis presenting to the emergency department with elevated heart rate that is now resolved. Vital signs here notable
for heart rate in the 60s. EKG per my interpretation initially showed sinus tachycardia. However after resolved he did have significant ST elevations diffusely. He is having some chest pain though he states that is incisional. I did discuss with
interventional cardiology who is in agreement that is unlikely to be a STEMI. Will obtain blood work including CBC BMP magnesium. Will check troponin. Also obtain CT PE to rule out PE given the tachycardia that occurred at rest. He does state he
has had multiple thyroid tests completed which have all been normal so we will hold off on that.
*Critical Care Note
Total Time (30-74mins, 75-104mins- exclusive of procedures): Not Applicable
Update Note
Update Note:
Blood work notable for troponin of 0.04. It is downtrending from 3 days ago. Could be in the setting of recent intervention. Pending delta troponin. Patient remains asymptomatic. CT PE negative. If delta troponin is flat or downtrending
patient will be discharged home
ED Attending Note
-
Portions of this chart may have been created with voice recognition software.� Occasional wrong word or��sound alike� substitutions may have occurred due to the inherent limitations of voice recognition software.
Discharge Plan
Departure
Prescriptions:
No Action
aspirin [Richard Chewable Aspirin] 81 mg Tablet,Chewable
81 mg PO DAILY
rosuvastatin 40 mg Tablet
40 mg PO DAILY
cholecalciferol (vitamin D3) [Vitamin D3] 50 mcg (2,000 unit) Tablet
50 mcg PO DAILY
vitamin B95-agxcg acid 500-400 mcg Tablet
1 tab PO DAILY
acetaminophen 325 mg Tablet
650 mg PO Q4HPRN PRN (Reason: mild pain,headache,temp >101F ) Qty: 0 0RF
cyclobenzaprine 10 mg Tablet
5 mg PO Q8HPRN PRN (Reason: muscle spasm) Qty: 20 0RF
colchicine 0.6 mg Tablet
0.6 mg PO DAILY Qty: 30 0RF
metoprolol succinate [Toprol XL] 25 mg tablet extended release 24 hr
25 mg PO DAILY Qty: 30 1RF
oxycodone 5 mg Tablet
5 mg PO Q6HPRN PRN (Reason: severe pain) Qty: 30 0RF
Patient Comments:
02/08/24: last filled 02/02/24 for 28 tablets over 7 days.
furosemide [Lasix] 20 mg tablet
20 mg PO DAILY Qty: 10 0RF
methylprednisolone [Medrol (Ricky)] 4 mg tablets,dose pack
See Rx Instructions .ROUTE .COMPLEX Qty: 21 0RF
Rx Instructions:
orally per package directions
Theragen Tablet
1 tab PO DAILY
gabapentin 100 mg capsule
100 mg PO TIDPRN PRN (Reason: nerve pain)
Referrals:
Tila March MD [Family Provider] -
Interventions
Interventions:
*Risk Screen - Suicide Last Done: 02/08/24 20:21
*Neglect/Abuse Screening Last Done: 02/08/24 20:21
ED- Cardiac Assessment Last Done: 02/08/24 20:28
ED- Pulmonary Assessment Last Done: 02/08/24 20:28
Discharge Date and Time
Print Language: BARBADIAN
[2024-02-08 20:42] LABS: Magnesium 2.2 mg/dl (1.6-2.3)
[2024-02-08 21:00] VITALS: BP 120/76
[2024-02-08 22:00] VITALS: BP 108/61
[2024-02-08 22:27] LABS: Troponin I 0.034 ng/ml
== END 2024-02-08 23:01 | disposition home or self-care (01) ==
LOC: EMR 18:16
PROVIDERS: EMERGENCY PHYSICIAN Student in an Organized Health Care Education/Training Program; FAMILY PHYSICIAN Family Medicine
DX: R00.0 Tachycardia, unspecified (principal); J90 Pleural effusion, not elsewhere classified
CPT/HCPCS: 99285; 71275; 80053; 83735; 84484; 85027; 93005; Q9967

== ENCOUNTER 2024-02-10 15:41 | Emergency (ER) | payer BC, SELFPAY ==
[2024-02-10 15:52] VITALS: BP 128/81
[2024-02-10 16:03] VITALS: BMI 28.1
--- NOTE | 2024-02-10 16:07 | EDRN ---
the pt was brought back from triage to ED Bed #10, the pt was placed on the monitor, no c/o chest pain, no c/o SOB, c/o palpitations, RAC #20 PIV placed, awaiting for Dr. Hawley to come to the pts bedside
--- NOTE | 2024-02-10 16:10 | EDRN ---
Dr. Hawley currently at the pts bedside speaking with the pt
--- NOTE | 2024-02-10 16:12 | EDRN ---
the pt just converted from Aflutter to Normal Sinus Rhythm
--- NOTE | 2024-02-10 16:19 | ED.GENMED ---
History of Present Illness
General
Chief Complaint: Heart Rate Problem
Source: patient
Time Seen by Provider: 02/10/24 16:03
History of Present Illness
History of Present Illness:
53-year-old male presents to the emergency room complaining of palpitations and tachycardia. Patient had mitral valve repair performed on January 29. Postoperatively he had a return visit to the ER for pleural effusions. He had another return
visit a couple days ago for tachycardia and palpitations which resolved spontaneously. He had a negative workup for PE or ischemia. Patient returns today with essentially the same symptoms as his had a couple days ago. He was feeling fine until
he had a sudden onset of rapid heart rate. No chest pain.
Past History
Past History
ED Past Medical History: GERD, HTN, Valvular disease and Other (Kidney stones)
ED Past Surgical History: None
Social History
Tobacco: Non-smoker
Alcohol: Occasional
Drug: None
Personal:
Living: with family
Employment: Employed
Family History
Family History: Diabetes, Hypertension and CAD
Phy Exam
Physical Exam
Physical Exam:
General: Awake, Alert, Oriented X3. No acute distress.
Vitals: unremarkable
Head: Atraumatic
Eyes: Pupils equal, EOMI
Throat: Airway intact, no exudates
Neck: Trachea midline
Lungs: Clear and equal b/l
Heart: Regular rate, no murmurs
Abd: Soft, Nontender, No pulsatile mass
Neuro: Nonfocal
Skin: Warm, dry, no rash
Extremities: pulses equal b/l, no edema
Scores
[id number] Score for Afib Stroke Risk
Age in Years (65=0, 65-74=1, >/=75=2): <65
Sex (Female=+1): Male
Congestive Heart Failure History (Yes=+1): No
Hypertension History (Yes=+1): No
Stroke/TIA/Thromboembolism History (Yes=+2): No
Vascular Disease History (Yes=+1): Yes
Diabetes Mellitus (Yes=+1): No
Score: 1
Anticoagulation Recommendations: Consider anticoagulation (as validated in nonvalvular fib)
Course
Orders/Labs/Results
Orders:
Orders
02/10/24 15:44
EKG [Electrocardiogram (*1)] Urgent
Reason for Study: Tachycardia
EKG- Treatment ONCE
02/10/24 16:13
EKG [Electrocardiogram (*1)] Urgent
Reason for Study: Other
Other Reason for Exam: converted from Aflutter to Normal Sinus Rhythm
EKG- Treatment ONCE
02/10/24 17:09
Amiodarone [Pacerone] 400 mg PO NOW STA
02/10/24 17:11
Apixaban [Eliquis] 5 mg PO NOW STA
Vital Signs
Initial and Last Documented VS:
Initial Vital Signs
Temp Pulse Resp BP Pulse Ox
97.9 F 163 18 128/81 96
02/10/24 15:52 02/10/24 15:52 02/10/24 15:52 02/10/24 15:52 02/10/24 15:52
Last Documented Vital Signs
Temp Pulse Resp BP Pulse Ox
97.9 F 82 17 136/71 96
02/10/24 15:52 02/10/24 17:24 02/10/24 17:15 02/10/24 17:24 02/10/24 17:15
MDM/Problems Addressed
Differential Diagnosis Includes:
Paroxysmal atrial fibrillation, paroxysmal a flutter, SVT
MDM/Problems Addressed:
Patient presents with recurrent episodes of rapid heart rate. EKG here. Will appear to be a flutter with 2 1 conduction. EKG from a couple days ago looks similar. Discussed with Dr. Abraham. At this point seems reasonable to load the patient
with amiodarone to prevent further episodes. Also start Eliquis. An appointment was made for the patient with cardiology in February.
*Pulse Oximetry
Patient hypoxic: no
*EKG
Interpretation: abnormal
Heart Rate: 163
Rate: tachycardiac
Rhythm: atrial flutter
Ischemia: non-specific ST changes
*Critical Care Note
Total Time (30-74mins, 75-104mins- exclusive of procedures): Not Applicable
ED Attending Note
-
Portions of this chart may have been created with voice recognition software.� Occasional wrong word or��sound alike� substitutions may have occurred due to the inherent limitations of voice recognition software.
Discharge Plan
Departure
Patient Disposition: Home (Routine Discharge)
Date of Disposition: 02/10/24
Time of Disposition: 17:15
Patient with high blood pressure during this ER visit?: No
Discharge Problem:
Paroxysmal atrial flutter
Instructions: Atrial flutter
Prescriptions:
New
amiodarone 400 mg tablet
400 mg PO BID Qty: 60 0RF
Eliquis 5 mg tablet
5 mg PO BID Qty: 60 0RF
No Action
aspirin [Richard Chewable Aspirin] 81 mg Tablet,Chewable
81 mg PO DAILY
rosuvastatin 40 mg Tablet
40 mg PO DAILY
cholecalciferol (vitamin D3) [Vitamin D3] 50 mcg (2,000 unit) Tablet
50 mcg PO DAILY
vitamin D86-yyqkh acid 500-400 mcg Tablet
1 tab PO DAILY
acetaminophen 325 mg Tablet
650 mg PO Q4HPRN PRN (Reason: mild pain,headache,temp >101F ) Qty: 0 0RF
cyclobenzaprine 10 mg Tablet
5 mg PO Q8HPRN PRN (Reason: muscle spasm) Qty: 20 0RF
colchicine 0.6 mg Tablet
0.6 mg PO DAILY Qty: 30 0RF
metoprolol succinate [Toprol XL] 25 mg tablet extended release 24 hr
25 mg PO DAILY Qty: 30 1RF
oxycodone 5 mg Tablet
5 mg PO Q6HPRN PRN (Reason: severe pain) Qty: 30 0RF
Patient Comments:
02/08/24: last filled 02/02/24 for 28 tablets over 7 days.
furosemide [Lasix] 20 mg tablet
20 mg PO DAILY Qty: 10 0RF
methylprednisolone [Medrol (Ricky)] 4 mg tablets,dose pack
See Rx Instructions .ROUTE .COMPLEX Qty: 21 0RF
Rx Instructions:
orally per package directions
Theragen Tablet
1 tab PO DAILY
gabapentin 100 mg capsule
100 mg PO TIDPRN PRN (Reason: nerve pain)
Referrals:
Tila March MD [Family Provider] -
Activity Restrictions/Additional Instructions:
The cardiology office has made an appointment for you to see a heart rhythm specialist, Dr. Echeverria, on Feb 23 at 120pm.
Interventions
Interventions:
*Risk Screen - Suicide Last Done: 02/10/24 16:03
*General Assessment Last Done: 02/10/24 16:03
*Neglect/Abuse Screening Last Done: 02/10/24 16:03
ED- Fall Risk Assessment Last Done: 02/10/24 16:03
*ED COVID-19 Vaccine History Last Done: 02/10/24 16:03
*Nursing Disposition Last Done: 02/10/24 17:30
ED- Cardiac Assessment Last Done: 02/10/24 16:03
ED- Pulmonary Assessment Last Done: 02/10/24 16:03
Discharge Date and Time
Discharge Date/Time: 02/10/24 17:30
Print Language: LIBERIAN
[2024-02-10 16:43] VITALS: BP 108/86
[2024-02-10 17:00] VITALS: BP 99/68
[2024-02-10] MEDS: PACERONE 400 MG PO (17:24)
[2024-02-10] MEDS: ELIQUIS 5 MG PO (17:29)
== END 2024-02-10 17:30 | disposition home or self-care (01) ==
LOC: EMR 15:41
PROVIDERS: EMERGENCY PHYSICIAN Emergency Medicine; FAMILY PHYSICIAN Family Medicine
DX: I48.92 Unspecified atrial flutter (principal)
CPT/HCPCS: 99283; 93005

== ENCOUNTER → 2024-02-14 12:37 | Outpatient (REF) | payer BC, SELFPAY | LOC: RAD 12:37 | PROVIDERS: ATTENDING PHYSICIAN Thoracic Surgery (Cardiothoracic Vascular Surgery); FAMILY PHYSICIAN Family Medicine | DX: J90 Pleural effusion, not elsewhere classified (principal) | CPT/HCPCS: 71046 ==

== ENCOUNTER 2024-02-16 15:08 | Emergency (ER) | payer BC, SELFPAY ==
[2024-02-16 15:09] VITALS: BP 133/96
--- NOTE | 2024-02-16 15:39 | ED.GENMED ---
History of Present Illness
General
Chief Complaint: Heart Rate Problem
Source: patient and records
Time Seen by Provider: 02/16/24 15:24
History of Present Illness
History of Present Illness:
53yoM with a history of a mitral regurgitation s/p mitral valve repair on 01/30/24, hypertension, and hyperlipidemia presenting for evaluation of an elevated heart rate. This is patient's 3rd ED visit since 02/08/24 for similar complaints. He was
previously diagnosed with atrial flutter. He was started on amiodarone and Eliquis at his last ED visit on 02/10/24. He was eating lunch today about 1-2 hours ago when he got an alert from his Fit[employer] that his heart rate has been elevated for the past
45 minutes. He checked his heart rate with his home pulse oximeter and heart rate was elevated in the 140s. Patient is asymptomatic currently and denies any chest pain, shortness of breath, palpitations, dizziness, syncope. He has an appointment
next week with electrophysiology. Patient's primary silk screen printer machine is Dr. Agee.
Past History
Past History
ED Past Medical History: GERD, HTN, Valvular disease and Other (Kidney stones)
ED Past Surgical History: None
Social History
Tobacco: Non-smoker
Alcohol: Occasional
Drug: None
Personal:
Living: with family
Employment: Employed
Family History
Family History: Diabetes, Hypertension and CAD
Phy Exam
General Physical Exam
General Presentation: well appearing and no apparent distress
General age: appears stated age
General Skin: warm and dry
General Habitus: normal
General Mental: alert
Cardiovascular Exam
Cardiovascular Exam: irregularly irregular and tachycardia
Pulmonary Exam
Pulmonary Exam: lungs clear, no respiratory distress, no crackles and no wheezing
Skin Exam
Skin Exam: normal color and warm/dry
Psychiatric Exam
Psychiatric Exam: normal mood/affect
Course
Orders/Labs/Results
Orders:
Orders
02/16/24 15:10
Electrocardiogram (*1) Urgent
Reason for Study: Palpitations
EKG- Treatment ONCE
02/16/24 15:30
ECG [Electrocardiogram (*1)] Urgent
Reason for Study: Abnormal EKG
02/16/24 15:31
EKG- Treatment ONCE
02/16/24 15:36
Cardiac Monitoring- Treatment ONCE
02/16/24 15:44
Complete Blood Count/With Diff Urgent
Comprehensive Metabolic Panel Urgent
Magnesium Urgent
TSH Reflex To Free T4 Urgent
Troponin I Urgent
02/16/24 16:01
Metoprolol [Lopressor] 5 mg IV NOW STA
02/16/24 16:32
Electrocardiogram (*1) Urgent
Reason for Study: Tachycardia
EKG- Treatment ONCE
Abnormal Lab Results
02/16/24
15:44
WBC 11.1 H 10^3/uL
(4.8-10.8)
RBC 4.11 L 10^6/uL
(4.70-6.10)
Hgb 12.8 L g/dL
(13.0-18.0)
Hct 38.0 L %
(39.0-52.0)
MCH 31.1 H pg
(27.0-31.0)
Plt Count 410 H 10^3/uL
(130-400)
Abs Immat Gran (auto) 0.1 H 10^3/uL
(0-0.05)
Absolute Neuts (auto) 8.0 H 10^3/uL
(1.4-6.5)
Lymphocytes % 19.1 L %
(20.5-51.1)
Glucose 115 H mg/dl
(70-99)
02/16/24 15:44
02/16/24 15:44
Vital Signs
Initial and Last Documented VS:
Initial Vital Signs
Temp Pulse Resp BP Pulse Ox
98.6 F 144 20 133/96 97
02/16/24 15:09 02/16/24 15:09 02/16/24 15:09 02/16/24 15:09 02/16/24 15:09
Last Documented Vital Signs
Temp Pulse Resp BP Pulse Ox
98.6 F 90 20 108/73 97
02/16/24 15:09 02/16/24 16:11 02/16/24 15:09 02/16/24 16:11 02/16/24 15:09
MDM/Problems Addressed
Differential Diagnosis Includes:
53yoM here with an elevated heart rate. Seen in the ED 2x within the past week for similar complaints and was previously diagnosed with aflutter. Recently started on amiodarone and Eliquis. He is asymptomatic currently. He is tachycardic to the 140s
on arrival. BP is stable. He is well appearing in no distress. Differential diagnosis includes but is not limited to: atrial flutter, atrial fibrillation, electrolyte abnormality, thyroid dysfunction
Initial ED plan: Place on cardiac nurse practitioner. Check cardiac labs, TSH, and magnesium. Will discuss with cardiology.
*EKG
Interpreted by ED Provider?: Yes
EKG Intrepretation Date: 02/16/24
EKG Intrepretation Time: 15:14
Heart Rate: 137
Rate: tachycardiac
Rhythm: atrial flutter
Plessis: normal axis
QRS Pattern: normal QRS
Ischemia: non-specific ST changes
*Critical Care Note
Total Time (30-74mins, 75-104mins- exclusive of procedures): Not Applicable
Update Note
Update Note:
Labs unremarkable including normal electrolytes and TSH. Troponin WNL. Case discussed with cardiology, Dr. Quintero, who recommends dose of 5mg IV Lopressor. Patient converted to sinus rhythm after receiving Lopressor. Repeat EKG shows NSR with a HR of
61. Cardiology states it is possible to go in and out of aflutter while amiodarone is loading. Cardiology recommending discharge and increasing metoprolol from 25mg daily to 25mg BID. Recommendations discussed with patient and he is in agreement. He
has an appointment with electrophysiology next week. ED return precautions discussed. He was discharged in stable condition.
ED Attending Note
-
Portions of this chart may have been created with voice recognition software.� Occasional wrong word or��sound alike� substitutions may have occurred due to the inherent limitations of voice recognition software.
Discharge Plan
Departure
Patient Disposition: Home (Routine Discharge)
Date of Disposition: 02/16/24
Time of Disposition: 17:02
Patient with high blood pressure during this ER visit?: No
Discharge Problem:
Paroxysmal atrial flutter
Instructions: Atrial Fibrillation and Atrial Flutter ED
Prescriptions:
No Action
aspirin [Richard Chewable Aspirin] 81 mg Tablet,Chewable
81 mg PO DAILY
rosuvastatin 40 mg Tablet
40 mg PO DAILY
cholecalciferol (vitamin D3) [Vitamin D3] 50 mcg (2,000 unit) Tablet
50 mcg PO DAILY
vitamin U51-qmunk acid 500-400 mcg Tablet
1 tab PO DAILY
acetaminophen 325 mg Tablet
650 mg PO Q4HPRN PRN (Reason: mild pain,headache,temp >101F ) Qty: 0 0RF
cyclobenzaprine 10 mg Tablet
5 mg PO Q8HPRN PRN (Reason: muscle spasm) Qty: 20 0RF
colchicine 0.6 mg Tablet
0.6 mg PO DAILY Qty: 30 0RF
metoprolol succinate [Toprol XL] 25 mg tablet extended release 24 hr
25 mg PO DAILY Qty: 30 1RF
oxycodone 5 mg Tablet
5 mg PO Q6HPRN PRN (Reason: severe pain) Qty: 30 0RF
Patient Comments:
02/08/24: last filled 02/02/24 for 28 tablets over 7 days.
furosemide [Lasix] 20 mg tablet
20 mg PO DAILY Qty: 10 0RF
methylprednisolone [Medrol (Ricky)] 4 mg tablets,dose pack
See Rx Instructions .ROUTE .COMPLEX Qty: 21 0RF
Rx Instructions:
orally per package directions
Theragen Tablet
1 tab PO DAILY
gabapentin 100 mg capsule
100 mg PO TIDPRN PRN (Reason: nerve pain)
amiodarone 400 mg tablet
400 mg PO BID Qty: 60 0RF
Eliquis 5 mg tablet
5 mg PO BID Qty: 60 0RF
Referrals:
Farzad Agee MD [Active] -
Activity Restrictions/Additional Instructions:
Continue taking amiodarone and Eliquis. Increase your metoprolol to 25mg twice a day.
Please follow-up with your silk screen printer machine. Return to the ER with any new or worsening symptoms.
Interventions
Interventions:
*Risk Screen - Suicide Last Done: 02/16/24 15:27
*General Assessment Last Done: 02/16/24 17:12
*Neglect/Abuse Screening Last Done: 02/16/24 15:27
*Nursing Disposition Last Done: 02/16/24 17:12
ED- Cardiac Assessment Last Done: 02/16/24 15:50
ED- Pulmonary Assessment Last Done: 02/16/24 15:50
Discharge Date and Time
Discharge Date/Time: 02/16/24 17:24
Print Language: VINCENTIAN
[2024-02-16 15:53] LABS: % Eosinophils 2.3 % (0-6); % Immature Granulocytes 0.5 % (0-0.5); % Lymphocytes 19.1 % (20.5-51.1); % Monocytes 4.6 % (1.7-9.3); % Neutrophils 72.5 % (42.2-75.2); Absolute Basophils 0.1 10^3/uL (0-0.2); Absolute Eosinophils 0.3 10^3/uL (0-0.7); Absolute Immature Granulocytes 0.1 10^3/uL (0-0.05); Absolute Lymphocytes 2.1 10^3/uL (1.2-3.4); Absolute Monocytes 0.5 10^3/uL (0.1-0.6); Hemoglobin 12.8 g/dL (13.0-18.0); Mean Corp Hgb Conc. 33.7 g/dL (33.0-37.0); Mean Corpuscular Hgb 31.1 pg (27.0-31.0); Mean Corpuscular Volume 92.5 fL (80.0-94.0); Mean Platelet Volume 8.6 fL (7.4-10.4); Nucleated Red Blood Cells % 0 % (-); Platelet Count 410 10^3/uL (130-400); Red Blood Cell Count 4.11 10^6/uL (4.70-6.10); Red Cell Dist. Width 13.6 % (11.5-14.5); White Blood Cell Count 11.1 10^3/uL (4.8-10.8)
[2024-02-16 16:08] LABS: ALT (SGPT) 25 U/L (0-50); AST (SGOT) 22 U/L (17-59); Albumin 4.1 g/dl (3.5-5.0); Alkaline Phosphatase 98 U/L (38-126); Blood Urea Nitrogen 19 mg/dl (9-20); Calcium 9.3 mg/dl (8.4-10.2); Carbon Dioxide 22 mmol/L (22-30); Chloride 107 mmol/L (98-107); Glucose 115 mg/dl (70-99); Magnesium 1.8 mg/dl (1.6-2.3); Potassium 3.7 mmol/L (3.5-5.1); Sodium 142 mmol/L (135-145); Total Bilirubin 0.9 mg/dl (0.2-1.3); Total Protein 6.7 g/dl (6.3-8.2); eGFR > 60.00
[2024-02-16] MEDS: LOPRESSOR 5 MG IV (16:11)
[2024-02-16 16:18] LABS: Troponin I < 0.012 ng/ml
[2024-02-16 16:38] LABS: TSH Reflex To Free T4 1.71 uIU/ml (0.47-4.68)
== END 2024-02-16 17:24 | disposition home or self-care (01) ==
LOC: EMR 15:08
PROVIDERS: Physician Assistant; EMERGENCY PHYSICIAN Emergency Medicine; FAMILY PHYSICIAN Family Medicine
DX: I48.92 Unspecified atrial flutter (principal); E78.5 Hyperlipidemia, unspecified; I10 Essential (primary) hypertension; K21.9 Gastro-esophageal reflux disease without esophagitis; Z79.01 Long term (current) use of anticoagulants; Z79.899 Other long term (current) drug therapy
CPT/HCPCS: 80053; 83735; 84443; 84484; 85025; 93005; 96374; 99284

== ENCOUNTER 2024-03-07 19:42 | Inpatient (IN) | payer BC, SELFPAY ==
[2024-03-07] VITALS (9 sets, daily range): BP systolic 111–167; BP diastolic 67–84; BMI 29.5; BMI 29.1
[2024-03-07 14:44] LABS: % Eosinophils 3.5 % (0-6); % Immature Granulocytes 0.4 % (0-0.5); % Lymphocytes 18.2 % (20.5-51.1); % Monocytes 7.8 % (1.7-9.3); % Neutrophils 69.1 % (42.2-75.2); Absolute Basophils 0.1 10^3/uL (0-0.2); Absolute Eosinophils 0.4 10^3/uL (0-0.7); Absolute Lymphocytes 1.9 10^3/uL (1.2-3.4); Absolute Monocytes 0.8 10^3/uL (0.1-0.6); Hematocrit 38.1 % (39.0-52.0); Hemoglobin 12.8 g/dL (13.0-18.0); Mean Corp Hgb Conc. 33.6 g/dL (33.0-37.0); Mean Corpuscular Hgb 30.8 pg (27.0-31.0); Mean Corpuscular Volume 91.6 fL (80.0-94.0); Mean Platelet Volume 8.5 fL (7.4-10.4); Nucleated Red Blood Cells % 0 % (-); Platelet Count 272 10^3/uL (130-400); Red Blood Cell Count 4.16 10^6/uL (4.70-6.10); Red Cell Dist. Width 13.3 % (11.5-14.5); White Blood Cell Count 10.1 10^3/uL (4.8-10.8)
[2024-03-07 15:09] LABS: ALT (SGPT) 36 U/L (0-50); AST (SGOT) 47 U/L (17-59); Albumin 4.4 g/dl (3.5-5.0); Alkaline Phosphatase 124 U/L (38-126); Blood Urea Nitrogen 19 mg/dl (9-20); Calcium 9.3 mg/dl (8.4-10.2); Carbon Dioxide 23 mmol/L (22-30); Chloride 103 mmol/L (98-107); Glucose 101 mg/dl (70-99); Sodium 140 mmol/L (135-145); Total Bilirubin 1.1 mg/dl (0.2-1.3); Total Protein 7.2 g/dl (6.3-8.2); eGFR > 60.00
[2024-03-07 15:17] LABS: Troponin I < 0.012 ng/ml
--- NOTE | 2024-03-07 15:52 | ED.GENMED ---
History of Present Illness
<Fidelia Dominguez PA-C - Last Filed: 03/08/24 00:00>
General
Chief Complaint: Breathing Problem
Source: patient
Exam Limitations: none
Time Seen by Provider: 03/07/24 15:26
Nursing documentation reviewed up to this point in time: agreed with
History of Present Illness
History of Present Illness:
Patient is a 53 year old male with history hypertension, hyperlipidemia, status post recent mitral valve repair presenting to the emergency department with right-sided chest discomfort and cough. Patient states that symptoms initially started on
Tuesday throughout the day. He reports a sharp pain in his right chest, worse when lying flat and with deep breaths. Patient denies any exertional component to pain. Pain does feel somewhat improved when sitting forward. Patient also coughing
since Tuesday open denies sputum production. Patient denies any associated shortness of breath, fever, chills.
Patient was scheduled to start cardiac rehab today following his mitral valve repair on 01/30/24. Given his ongoing symptoms he was unable to start and was referred to the emergency department for further evaluation.
Patient does have a history of pleural effusion approximately 1 month ago which was drained via thoracentesis. He states his pain feels similar.
Patient endorses compliance with Eliquis (5mg BID)
Past History
<Fidelia Dominguez PA-C - Last Filed: 03/08/24 00:00>
Past History
ED Past Medical History: GERD, HTN, Valvular disease and Other (Kidney stones)
ED Past Surgical History: None
Social History
Tobacco: Non-smoker
Alcohol: Occasional
Drug: None
Personal:
Living: with family
Employment: Employed
Family History
Family History: Diabetes, Hypertension and CAD
Review of Systems
<Fidelia Dominguez PA-C - Last Filed: 03/08/24 00:00>
Review of Systems
Allergies reviewed?: Yes
All Other Systems: ROS reviewed and negative except as documented in HPI and ROS
Phy Exam
<Fidelia Dominguez PA-C - Last Filed: 03/08/24 00:00>
Physical Exam
Physical Exam:
Vitals: Patient's vital signs are stable. Afebrile
General: Patient is well appearing, no acute distress. Nontoxic-appearing
Skin: Warm and dry, no rashes or lesions
Head: Normocephalic, atraumatic
Eyes: Sclera nonicteric. EOMs intact. No nystagmus.
Throat: Protecting airway
Neck: Normal ROM, no cervical spine tenderness, no meningismus. No JVD. Trachea midline
Cardiac: Regular rate and rhythm, no murmurs.
Pulm: In no apparent respiratory distress. Slightly decreased breath sounds at right base. Oxygen saturation 98 on room air
Abdomen: No abdominal tenderness.
Extremities: No evidence of cyanosis or edema. Great distal pulses
Neuro: Grossly intact.
Psychiatric: Normal affect.
Scores
<Fidelia Dominguez PA-C - Last Filed: 03/08/24 00:00>
Heart Failure Risk
Heart Failure Risk Score: Not Applicable
Course
<Fidelia Dominguez PA-C - Last Filed: 03/08/24 00:00>
Orders/Labs/Results
Orders:
Orders
03/07/24 Breakfast
Cholesterol Lowering
At Your Request: Full Participation
Cholesterol Lowering: Sodium, 2 Gram
03/07/24 14:24
Electrocardiogram (*1) Urgent
Reason for Study: Shortness of Breath
EKG- Treatment ONCE
03/07/24 14:36
Complete Blood Count/With Diff Urgent
Comprehensive Metabolic Panel Urgent
Troponin I Urgent
03/07/24 15:57
CR Chest - 2 Views Urgent
Comment:
Reason For Exam: R sided chest pain, diminished breath sounds
03/07/24 16:20
CT Chest Pe Study Urgent
Comment: hx pleural effusion
Reason For Exam: Right sided chest pain, cough
03/07/24 18:56
Admit/Transfer Patient As Directed
Co-Sign Provider:
Level of Care: Inpatient admission
Assign to:: Telemetry
Physician / Group: johnathon
Diagnosis: pleural effusion
Reason for Telemetry: Arrhythmia
Date to Stop Telemetry: 03/10/24
Time to Stop Telemetry: 11:00
Reason for Hospitalization: pleural effusion
Expected length of stay greater than two midnights?: Yes
ELOS- Estimated Length of Stay in days: 3
I certify the patient meets the requirements for IP care: Yes
PRN Pain Medication Management As Directed
May give lesser potent ordered pain med per pt: Yes
preference::
Protocol:: Medication orders for pain may be administered in a
manner that supports deferring to patient preference
when the pt is:
- Requesting an ordered lesser potent pain medication.
Least to most potent pain medications are defined
as: acetaminophen < NSAID < tramadol < opioids
(morphine, oxycodone, hydromorphone).
- Requesting a lesser dose of the same medication IF
ORDERED.
- Requesting a less intrusive route of administration
if both routes are prescribed by the provider (PO <
IV).
03/07/24 18:57
Code Status As Directed
Resuscitation Status: Full Code
03/07/24 19:29
Furosemide [Lasix] 20 mg IV NOW STA
US Chest - Right Routine
Comment:
Reason For Exam: pleural effusion
03/07/24 19:31
COVID-19 Antigen Stat
Source: Nasal Swab
03/07/24 20:55
Acetaminophen [Tylenol] 650 mg PO Q4HPRN PRN
Apixaban [Eliquis] 5 mg PO BID
Benzonatate [Tessalon Perles] 200 mg PO TIDPRN PRN
Bisacodyl [Dulcolax] 10 mg RECTAL [id number] PRN
Docusate W/Senna [Senokot-S] 1 tablet PO BIDPRN PRN
Metoprolol Xl [Toprol Xl] 25 mg PO BID
Polyethylene Glycol Powder [Miralax] 17 grams PO DAILYPRN PRN
Tramadol HCl [Ultram] 100 mg PO Q6HPRN PRN
03/07/24 20:55
CARDIOLOGY CONSULT Routine
Consulting Provider: Beck Alvarez
Was physician already notified: Yes
Cardiothoracic Surgery Consult Routine
Consulting Provider: Tima Graham
Was physician already notified: Yes
Activity As Directed
Activity Level: As Tolerated
Pneumatic Compression Sleeves As Directed
Type: Knee high
Vital Signs As Directed
Frequency: Per unit guidelines
DX Deep Vein Thrombosis Video Routine
03/08/24 06:00
Basic Metabolic Panel IN AM
Complete Blood Count/No Diff IN AM
03/08/24 08:00
Amiodarone [Pacerone] 400 mg PO BID
Aspirin Chewable [Low Strength Aspirin] 81 mg PO DAILY
Rosuvastatin Calcium [Crestor] 40 mg PO DAILY
03/09/24 06:00
Basic Metabolic Panel IN AM
Complete Blood Count/No Diff IN AM
03/10/24 06:00
Basic Metabolic Panel IN AM
Complete Blood Count/No Diff IN AM
03/10/24 11:00
DC Protocol for Telemetry ONCE
03/11/24 06:00
Basic Metabolic Panel IN AM
Complete Blood Count/No Diff IN AM
Abnormal Lab Results
03/07/24
14:36
RBC 4.16 L 10^6/uL
(4.70-6.10)
Hgb 12.8 L g/dL
(13.0-18.0)
Hct 38.1 L %
(39.0-52.0)
Absolute Neuts (auto) 7.0 H 10^3/uL
(1.4-6.5)
Absolute Monos (auto) 0.8 H 10^3/uL
(0.1-0.6)
Lymphocytes % 18.2 L %
(20.5-51.1)
Glucose 101 H mg/dl
(70-99)
03/07/24 14:36
03/07/24 14:36
Vital Signs
Initial and Last Documented VS:
Initial Vital Signs
Temp Pulse Resp BP Pulse Ox
98.7 F 60 18 167/84 96
03/07/24 14:20 03/07/24 14:20 03/07/24 14:20 03/07/24 14:20 03/07/24 14:20
Last Documented Vital Signs
Temp Pulse Resp BP Pulse Ox
98.2 F 61 16 125/70 98
03/07/24 22:36 03/07/24 22:36 03/07/24 20:40 03/07/24 22:36 03/07/24 23:13
<Brock Gordon, DO - Last Filed: 03/07/24 16:08>
Orders/Labs/Results
Orders:
Orders
03/07/24 Breakfast
Cholesterol Lowering
At Your Request: Full Participation
Cholesterol Lowering: Sodium, 2 Gram
03/07/24 14:24
Electrocardiogram (*1) Urgent
Reason for Study: Shortness of Breath
EKG- Treatment ONCE
03/07/24 14:36
Complete Blood Count/With Diff Urgent
Comprehensive Metabolic Panel Urgent
Troponin I Urgent
03/07/24 15:57
CR Chest - 2 Views Urgent
Comment:
Reason For Exam: R sided chest pain, diminished breath sounds
03/07/24 16:20
CT Chest Pe Study Urgent
Comment: hx pleural effusion
Reason For Exam: Right sided chest pain, cough
03/07/24 18:56
Admit/Transfer Patient As Directed
Co-Sign Provider:
Level of Care: Inpatient admission
Assign to:: Telemetry
Physician / Group: johnathon
Diagnosis: pleural effusion
Reason for Telemetry: Arrhythmia
Date to Stop Telemetry: 03/10/24
Time to Stop Telemetry: 11:00
Reason for Hospitalization: pleural effusion
Expected length of stay greater than two midnights?: Yes
ELOS- Estimated Length of Stay in days: 3
I certify the patient meets the requirements for IP care: Yes
PRN Pain Medication Management As Directed
May give lesser potent ordered pain med per pt: Yes
preference::
Protocol:: Medication orders for pain may be administered in a
manner that supports deferring to patient preference
when the pt is:
- Requesting an ordered lesser potent pain medication.
Least to most potent pain medications are defined
as: acetaminophen < NSAID < tramadol < opioids
(morphine, oxycodone, hydromorphone).
- Requesting a lesser dose of the same medication IF
ORDERED.
- Requesting a less intrusive route of administration
if both routes are prescribed by the provider (PO <
IV).
03/07/24 18:57
Code Status As Directed
Resuscitation Status: Full Code
03/07/24 19:29
Furosemide [Lasix] 20 mg IV NOW STA
US Chest - Right Routine
Comment:
Reason For Exam: pleural effusion
03/07/24 19:31
COVID-19 Antigen Stat
Source: Nasal Swab
03/07/24 20:55
Acetaminophen [Tylenol] 650 mg PO Q4HPRN PRN
Apixaban [Eliquis] 5 mg PO BID
Benzonatate [Tessalon Perles] 200 mg PO TIDPRN PRN
Bisacodyl [Dulcolax] 10 mg RECTAL [id number] PRN
Docusate W/Senna [Senokot-S] 1 tablet PO BIDPRN PRN
Metoprolol Xl [Toprol Xl] 25 mg PO BID
Polyethylene Glycol Powder [Miralax] 17 grams PO DAILYPRN PRN
Tramadol HCl [Ultram] 100 mg PO Q6HPRN PRN
03/07/24 20:55
CARDIOLOGY CONSULT Routine
Consulting Provider: Beck Alvarez
Was physician already notified: Yes
Cardiothoracic Surgery Consult Routine
Consulting Provider: Tima Graham
Was physician already notified: Yes
Activity As Directed
Activity Level: As Tolerated
Pneumatic Compression Sleeves As Directed
Type: Knee high
Vital Signs As Directed
Frequency: Per unit guidelines
DX Deep Vein Thrombosis Video Routine
03/08/24 06:00
Basic Metabolic Panel IN AM
Complete Blood Count/No Diff IN AM
03/08/24 08:00
Amiodarone [Pacerone] 400 mg PO BID
Aspirin Chewable [Low Strength Aspirin] 81 mg PO DAILY
Rosuvastatin Calcium [Crestor] 40 mg PO DAILY
03/09/24 06:00
Basic Metabolic Panel IN AM
Complete Blood Count/No Diff IN AM
03/10/24 06:00
Basic Metabolic Panel IN AM
Complete Blood Count/No Diff IN AM
03/10/24 11:00
DC Protocol for Telemetry ONCE
03/11/24 06:00
Basic Metabolic Panel IN AM
Complete Blood Count/No Diff IN AM
Abnormal Lab Results
03/07/24
14:36
RBC 4.16 L 10^6/uL
(4.70-6.10)
Hgb 12.8 L g/dL
(13.0-18.0)
Hct 38.1 L %
(39.0-52.0)
Absolute Neuts (auto) 7.0 H 10^3/uL
(1.4-6.5)
Absolute Monos (auto) 0.8 H 10^3/uL
(0.1-0.6)
Lymphocytes % 18.2 L %
(20.5-51.1)
Glucose 101 H mg/dl
(70-99)
03/07/24 14:36
03/07/24 14:36
Vital Signs
Initial and Last Documented VS:
Initial Vital Signs
Temp Pulse Resp BP Pulse Ox
98.7 F 60 18 167/84 96
03/07/24 14:20 03/07/24 14:20 03/07/24 14:20 03/07/24 14:20 03/07/24 14:20
Last Documented Vital Signs
Temp Pulse Resp BP Pulse Ox
98.2 F 61 16 125/70 98
03/07/24 22:36 03/07/24 22:36 03/07/24 20:40 03/07/24 22:36 03/07/24 23:13
<Fidelia Dominguez PA-C - Last Filed: 03/08/24 00:00>
MDM/Problems Addressed
Differential Diagnosis Includes:
Not limited to: Pericarditis, myocarditis, pleural effusion, bronchitis, pneumonia, pericardial effusion, doubt PE or ACS
MDM/Problems Addressed:
Patient is a 53-year-old male with history as documented presenting with 4 days of right-sided chest discomfort, worse when lying down. No exertional component, although some pleuritic component. Denies any associated fever, chills, shortness of
breath, or productive cough. Patient did have recent mitral valve repair on 01/30/[address] Medina. Did have right-sided pleural effusion about 1 month ago which resolved s/p thoracentesis. Patient is hypertensive, otherwise vital signs stable.
Physical exam as above. Patient is well-appearing, in no apparent respiratory distress. Patient is oxygenating well 96 on room air. Heart regular rate and rhythm. There is mildly decreased breath sounds in the right base. Patient is perfusing
well. No evidence of edema, tenderness of lower extremities. Differential broad at this time although considering pericarditis, pleural effusion, bronchitis, pericardial effusion. Low suspicion for infectious cause given patient is afebrile with
no other infectious symptoms. Do not suspect PE given patient is compliant with Eliquis. Will check basic labs. Will start with chest x-ray. EKG without any acute ischemic changes. Patient comfortable at this time.
Chronic conditions affecting care:
Hypertension, hyperlipidemia, recent mitral valve repair
Acute Exacerbation and/or Progression of Chronic Illness:
N/A
<Fidelia Dominguez PA-C - Last Filed: 03/08/24 00:00>
*Radiology
Radiology exam reviewed: preliminary read by ED provider and radiology read reviewed
*Pulse Oximetry
Patient hypoxic: no
*EKG
Interpreted by ED Provider?: Yes
EKG Intrepretation Date: 03/07/24
Interpretation: normal
Comparison EKG: changes noted
Heart Rate: 57
Rate: bradycardiac
Rhythm: sinus
[place]: normal axis
Interval: normal interval
QRS Pattern: normal QRS
Ischemia: non-specific ST changes
*Fuel Technician Interpretation
Rate: normal
Interpretation: normal
Heart Rate: 58
Rhythm: sinus
*Critical Care Note
Total Time (30-74mins, 75-104mins- exclusive of procedures): Not Applicable
Data Reviewed
Review of Other/Old Records Reveals: Radiology Studies (Chest x-ray from 02/02/2024-bilateral small pleural effusions)
<Fidelia Dominguez PA-C - Last Filed: 03/08/24 00:00>
Patient Management
Discussion with other providers: Hospitalist
Escalation/DeEscalation of care consider admission/obs:
Admit
<Fidelia Dominguez PA-C - Last Filed: 03/08/24 00:00>
Update Note
Update Note:
Update: Labs reviewed. No clinically significant abnormalities. Troponin is normal. Chest x-ray shows no acute abnormalities. Given patient's history and ongoing symptoms�will obtain CTA chest for further evaluation. Patient remained stable in
no apparent distress.
Update: CTA chest does show small right pleural effusion. Given patient's recent mitral valve repair and symptomatic pleural effusion�will admit for further evaluation/management. Patient accepted to hospital service in stable condition. Patient
seen with attending physician.
ED Attending Note
<Fidelia Dominguez PA-C - Last Filed: 03/08/24 00:00>
-
Portions of this chart may have been created with voice recognition software.� Occasional wrong word or��sound alike� substitutions may have occurred due to the inherent limitations of voice recognition software.
<Brock Gordon, - Last Filed: 03/07/24 16:08>
ED Attending Note
Patient seen and examined by attending physician: Yes
I performed a history and physical exam of patient and discussed management with resident, I reviewed resident's note and agree with documented findings and plan of care.: Yes
ED Attending Note:
I have reviewed and agree with history and treatment plan by Fidelia Norton. My exam revealed 53-year-old male no acute distress, with cough, afebrile, decreased lung sounds on right base. Will evaluate chest x-ray, concerning for pleural
effusion.
Discharge Plan
Departure
Patient Disposition: Admit
Date of Disposition: 03/07/24
Time of Disposition: 18:31
Presentation/result/management discussed w/ accepting MD/DO: Hospitalist
Discharge Problem:
Pleural effusion on right
Interventions
Interventions:
*Risk Screen - Suicide Last Done: 03/07/24 20:56
*General Assessment Last Done: 03/07/24 14:20
*Neglect/Abuse Screening Last Done: 03/07/24 14:20
*ED COVID-19 Vaccine History Last Done: 03/07/24 20:56
*Nursing Disposition Last Done: 03/07/24 20:42
ED- Cardiac Assessment Last Done: 03/07/24 15:35
ED- Pulmonary Assessment Last Done: 03/07/24 15:35
Discharge Date and Time
Discharge Date/Time: 03/07/24 20:43
--- NOTE | 2024-03-07 18:40 | HPS.HSE ---
Family Physician
-
Family Physician: Tila March
Chief Complaint
-
cough
sob
History of Present Illness
53 year old male with history hypertension, hyperlipidemia, status post recent mitral valve repair presenting to the emergency department with right-sided chest discomfort and cough and sob since Tuesday. patient stated symptoms worse when laying
down, improves when standing up. denied fever, chills, runny nose, congestion and cough. denied abdominal pain,n,v,d. denied dysuria or hematuria. patient was evaluated by PCP today and sent in for further intervention.
Patient does have a history of pleural effusion approximately 1 month ago which was drained via thoracentesis. He states his pain feels similar.
admitting for further management.
Medical History
Past Medical History
Past Medical History: Reports Other
Additional Past Medical History:
Anxiety
Depression
Asthma
Mitral regurgitation
Hypertension
Past Surgical History: Reports Other
Additional Past Surgical History:
Mitral valve repair
Social History
Tobacco: Non-smoker
Alcohol: None
Drug: None
Employment: Employed
Family History
Family History: Not pertinent
Allergies / Home Medications
Allergies reflects when Allergies were last updated in [facility].
Home Medications with original date entered in [facility]
Allergy/Medication List:
Allergies
Allergy/AdvReac Type Severity Reaction Status Date / Time
No Known Allergies Allergy Verified 02/16/24 15:09
Home Medications
aspirin 81 mg chewable tablet (Richard Chewable Low Dose Aspirin) 81 mg PO DAILY Blood Clot Prevention/Tx 12/21/23
cholecalciferol (vitamin D3) 50 mcg (2,000 unit) tablet (Vitamin D3) 50 mcg PO DAILY Supplement 12/21/23
rosuvastatin 40 mg tablet 40 mg PO DAILY High Cholesterol 12/21/23
vitamin B12 500 mcg-folic acid 400 mcg tablet 1 tab PO DAILY Supplement 12/21/23
acetaminophen 325 mg tablet 650 mg (2 x 325 mg) PO Q4HPRN PRN mild pain,headache,temp >101F #0 tabs 02/01/24
therapeutic multivitamin 1 tab PO DAILY 02/08/24
amiodarone 400 mg tablet 400 mg PO BID #60 tabs 02/10/24
apixaban 5 mg tablet (Eliquis) 5 mg PO BID #60 tabs 02/10/24
metoprolol succinate 25 mg tablet,extended release 24 hr (Toprol XL) 25 mg PO BID Heart disease/condition 03/07/24
Review of Systems
-
Constitutional: Reports No Symptoms
EENT: Reports No Symptoms
Respiratory: Reports Cough and Trouble Breathing
Cardiac: Reports Chest Pain
Abdomen/GI: Reports No Symptoms
: Reports No Symptoms
Musculoskeletal: Reports No Symptoms
Skin: Reports No Symptoms
Neurological: Reports No Symptoms
Endocrine: Reports No Symptoms
Hematologic/Lymphatic: Reports No Symptoms
Psych: Reports No Symptoms
Physical Exam
Vital Signs
Vital Signs
Temp Pulse Resp BP Pulse Ox
98.7 F 55 18 111/81 94
03/07/24 14:20 03/07/24 18:15 03/07/24 17:15 03/07/24 18:00 03/07/24 18:15
Physical Exam
General: Well Developed, Well Nourished and No Apparent Distress
HEENT: NormoCephalic, Moist mucous membranes and Atraumatic
Respiratory: Clear
Cardiac: S1/S2 and Regular Rhythm; No Murmur or Rub
GI: Soft, Non Tender, Non Distended and Normal Bowel Sounds; No Organomegaly
Rectal: Deferred by Provider
Musculoskeletal: No Clubbing, No Cyanosis and No Edema
Skin: No Rash
Neuro: AO x 3 and Nonfocal/grossly intact
Psych: Calm
Laboratory Results
-
03/07/24 14:36
03/07/24 14:36
Laboratory Results
Total Bilirubin 1.1 mg/dl (0.2-1.3) 03/07/24 14:36
AST 47 U/L (17-59) 03/07/24 14:36
ALT 36 U/L (0-50) 03/07/24 14:36
Alkaline Phosphatase 124 U/L (38-126) 03/07/24 14:36
Troponin I < 0.012 ng/ml 03/07/24 14:36
Data Reviewed
-
Diagnostic Radiology: Report Reviewed by me
CT Scan: Report Reviewed by me
Lab Data: Labs Reviewed by me
Impression/Plan
-
# Symptomatic right-sided pleural effusion
-CT with There is no pulmonary embolism.Cardiomegaly without associated pulmonary edema.Small right pleural effusion with compressive atelectasis at the posterior right lung base
-chest x ray No active cardiopulmonary disease.
-obtain US of chest
-CT and cardiology consulted
-Tessalon prn for cough
-tramadol prn for pain
# Recent mitral valve repair
-aspirin continued
#paroxysmal atrial fib
-eliquis continued
-amiodarone continued
-Toprol continued
#HLD
-statin continued
#DVT Prophylaxis
-scd
#CODE status
-full code
--- NOTE | 2024-03-07 19:30 | W.PN.UPDATE ---
Update Note
Progress Note Update
This is an addendum to H&P written by ROW BOSS Brigida Brizuela
I saw and examined the patient.
The ROW BOSS's note was reviewed and I agree with the note.
Comment:
Mr. Darryl Koo is a 53 yo man with hx mitral regurgitation s/p mitral valve repair 01/30/24, with admission 02/04-02/05 for right pleural effusion s/p thoracentesis, HTN, HLD, ER visit 02/10/24 for atrial fibrillation (started on amiodarone and
Eliquis) presents to the ER with shortness of breath and cough. Triage vitals stable. Labs unremarkable. On exam patient is awake, conversant, in no acute distress, no wheezing on exam, decreased breath sounds right lung base, no LE swelling.
CT CHEST
IMPRESSION:
There is no pulmonary embolism
Cardiomegaly without associated pulmonary edema
Small right pleural effusion with compressive atelectasis at the posterior right lung base
Recurrent right pleural effusion s/p mitral valve repair
-lasix 20mg IV x 1 now
-chest US
-cardiology consult
-CTS texted on admission (Dr. Tima Graham)
Post-op atrial fibrillation
-patient is on amiodarone 400mg PO BID (3rd week) and was told he needs to stay on this dose
-follow up cardiology recommendations on amiodarone dosing
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
remainder of plan per ROW BOSS note
[2024-03-07 19:56] LABS: COVID-19 Antigen Negative (Negative)
[2024-03-07] MEDS: LASIX 20 MG IV (20:02)
[2024-03-07] MEDS: ELIQUIS 5 MG PO (21:16)
[2024-03-07] MEDS: TESSALON PERLES 200 MG PO (21:21)
[2024-03-07] MEDS: TOPROL XL PO (21:23)
--- NOTE | 2024-03-07 21:30 | PTCARENOTE ---
Received pt from ED into room 2127. Pt ambulatory with no assistance. AAOx3. VSS. Pt with slight crackles in R base. Dry, frequent, non-productive, harsh cough. Covid neg. Pt reports 2 out of 10 pain in R lower to mid back. Pt has no further
complaints at this time, resting comfortably in bed, call conteh within reach.
--- NOTE | 2024-03-08 01:25 | CONSULT.CT ---
Consultation
-
Date/Time Consultation Requested: 03/07/24
Date/Time Consultation Performed: 03/08/24, 5am
Requesting Provider: Dr. Conn
Performing Provider: Meenakshi Rowland PA-C for Dr. Graham
Reason for Consultation: SOB, s/p MV repair on 01/30/24
Patient History
Physicians
Family Physician: Dr. Tila March
Outpatient Composition Stone Applicator: Dr. Farzad Agee
Inpatient Composition Stone Applicator: [facility] Cardiology
History of Present Illness
-Mr Koo is 53 yo male gentleman with hx of mitral valve prolapse with severe MR who underwent R mini thoracotomy with radical mitral valve repair (34 mm band annuloplasty) by Dr. Medina on 01/30/24. Pt had pericarditis postop, was treated with Toradol
and Colchicine and discharged on 02/03/24. He was readmitted on 02/04 for SOB and underwent R thoracentesis of 600 cc clear sincere fluid. At that time, he was discharged with Medrol pack, ASA, and Colchicine. He was then seen several times in ED on
02/07, 02/09, and 02/15 with complaints of palpitations and diagnosed with a-flutter. Mr Koo was started on Amio and Eliquis and his Lopressor was increased to 25 mg bid on 02/15.
He presents to ED on 03/07 with c/o R-sided chest discomfort, coughing fits, and SOB since Tuesday (4days). His symptoms are worse when lying down and improve with standing up. He denies any leg edema, fever, chills, nausea, vomiting or abdominal
pain. CXR without acute dz. Chest CT today revealed no PE, no pulmonary edema, and small right pleural effusion with compressive atelectasis at the posterior right lung base. Chest US confirmed small right pleural effusion. He was given 20 mg iv
Lasix and Tessalon perles and is feeling better this morning. Pt states that his weight at home postop is between 178 and 182 lbs, but was 173 lbs preop.
Past Medical History
Past Medical History: Atrial Fib (on Amio and Eliquis ), HTN and Hypercholesterolemia
Anxiety/Depression, OA of both hips, chronic fatigue, hx pneumonia/chronic bronchitis, seasonal allergy, mild Sleep apnea on home sleep test, insomnia, kidney stones, hx frequent infections, hx mild intermittent asthma.
Past Surgical History
Past Surgical History: Valve (s/p radical mitral valve repair (34 mm band annuloplasty) on 01/30/[address] Medina)
Family History
Mother: N/A
Father: N/A
Social History
Alcohol: None
Drug: None
Tobacco: Non-Smoker
Employment: Employed
Allergies
Allergy/AdvReac Type Severity Reaction Status Date / Time
No Known Allergies Allergy Verified 02/16/24 15:09
Home Medications
�Medication �Instructions �Recorded �Confirmed �Type
aspirin 81 mg chewable tablet 81 mg PO DAILY Blood Clot 12/21/23 03/07/24 History
(Richard Chewable Low Dose Aspirin) Prevention/Tx
cholecalciferol (vitamin D3) 50 50 mcg PO DAILY Supplement 12/21/23 03/07/24 History
mcg (2,000 unit) tablet (Vitamin
D3)
rosuvastatin 40 mg tablet 40 mg PO DAILY High Cholesterol 12/21/23 03/07/24 History
vitamin B12 500 mcg-folic acid 400 1 tab PO DAILY Supplement 12/21/23 03/07/24 History
mcg tablet
acetaminophen 325 mg tablet 650 mg (2 x 325 mg) PO Q4HPRN PRN 02/01/24 03/07/24 Rx
mild pain,headache,temp >101F #0
tabs
therapeutic multivitamin 1 tab PO DAILY 02/08/24 03/07/24 History
amiodarone 400 mg tablet 400 mg PO BID #60 tabs 02/10/24 03/07/24 Rx
apixaban 5 mg tablet (Eliquis) 5 mg PO BID #60 tabs 02/10/24 03/07/24 Rx
metoprolol succinate 25 mg 25 mg PO BID Heart 03/07/24 03/07/24 History
tablet,extended release 24 hr disease/condition
(Toprol XL)
Review of Systems
-
History Source: Patient and Other (medical records)
General: Reports No Symptoms
HEENT: Reports No Symptoms
Respiratory: Reports SOB and Cough
Cardiac: Reports Chest Pain
Abdomen/GI: Reports No Symptoms
: Reports No Symptoms
Musculoskeletal: Reports No Symptoms
Skin: Reports No Symptoms
Neurological: Reports No Symptoms
Vascular: Reports No Symptoms
Physical Exam
Vital Signs
Temp 98.2 F 03/07/24 22:36
Temp route: Oral 03/07/24 22:36
Pulse 61 03/07/24 22:36
Rhythm: Normal sinus rhythm 03/07/24 21:00
Resp Rate 16 03/07/24 20:40
Blood pressure 125/70 03/07/24 22:36
Blood pressure extremity used: Right upper arm 03/07/24 20:40
Position: Lying 03/07/24 22:36
MAP (cuff-Marcelina Monitor) 87 03/07/24 19:00
MAP 88 03/07/24 20:07
SaO2 98 03/07/24 23:13
Oxygen Mode of Delivery Room air 03/07/24 23:13
Acceptable pain level during hospitalization? 0 03/07/24 14:20
Can the patient verbally communicate their pain? Yes 03/07/24 21:00
Pain scale ratin 03/07/24 21:00
Actual Weight 180 lb 03/07/24 20:55
Body Mass Index (BMI) 29.1 03/07/24 20:55
Labs
Troponin I < 0.012 ng/ml 03/07/24 14:36
Exam
General: Well Developed
HEENT: Normocephalic, Moist Mucous Membranes, Atraumatic and PERRLA
Respiratory: Crackles (at bases. No wheeze)
Cardiac: S1/S2 and Regular Rhythm (no murmur, no rub)
GI: Soft, Non Tender, Non Distended and Normal Bowel Sounds
Skin: Warm
Neuro: Awake and AO x 3
Psych: Calm
Assessment / Plan
-
Impression:
-Admitted with cough/SOB- afebrile, nl wbc. Incisions are healing well, cdi
-Chest CT: no PE, no pulmonary edema, Small right pleural effusion with compressive atelectasis at the posterior right lung base
-Chest US: small R pleural effusion
-Postop a-fib - currently in NSR. At home, on Amio 400 bid (3rd week), Toprol XL 25 bid, ASA, and Eliquis
-s/p R mini-thoracotomy with radical MV repair (34 mm band annuloplasty) on 01/30/[address] Medina
-Postop pericarditis
-Postop R pleural effusion with thoracentesis of 600 cc of clear sincere fluid on 02/06/24
-Postop Echo 02/02/24:
Normal LV size and function with no regional wall motion abnormalities. LVEF is 60-65% by visual estimation.Normal right ventricular size and function.
S/p mitral valve repair and 34 mm band annuloplasty. Peak/mean gradients across the mitral valve are 8/2 mmHg. No mitral regurgitation is seen.
No significant pericardial effusion.
Compared to prior from December 15, 2023, now status post mitral valve repair with no mitral regurgitation seen.
-HTN/HLD
-Anxiety/Depression
-Mild TREVOR
-Chronic fatigue
-OA of hips b/l
-hx renal stones
-hx asthma
-hx of pneumonia/chronic bronchitis
-insomnia
Plan:
-will review findings with the attending surgeon. Will consider Echo to eval MV, LVEF.
-pt was tx with 20 iv Lasix and Tessalon perles on 03/07. He states feeling better. Follow daily wts and I/O. His weight is - 181 lbs on 02/04 and 180 lbs on 03/07 (pt says that preop weight was 173 lbs)
-continue Eliquis, Amio, Toprol for paroxysmal a-fib. Hg is stable - 12.8 on 03/07 and 12.8 on 02/15
-continue Crestor
-chest pain control. trop <0.012
Data Reviewed
-
EKG: Tracing Personally Visualized and interpreted and Report Reviewed by me
Echo: Report Reviewed by me
Radiology: Report Reviewed by me
CT Scan: Report Reviewed by me
Ultrasound: Report Reviewed by me
Labs: Labs Reviewed by me
Old Records: Reviewed
[2024-03-08 02:55] VITALS: BP 114/67
[2024-03-08 07:12] LABS: Hematocrit 38.3 % (39.0-52.0); Mean Corp Hgb Conc. 33.9 g/dL (33.0-37.0); Mean Corpuscular Hgb 31.5 pg (27.0-31.0); Mean Corpuscular Volume 92.7 fL (80.0-94.0); Mean Platelet Volume 8.9 fL (7.4-10.4); Platelet Count 286 10^3/uL (130-400); Red Blood Cell Count 4.13 10^6/uL (4.70-6.10); Red Cell Dist. Width 13.3 % (11.5-14.5); White Blood Cell Count 8.6 10^3/uL (4.8-10.8)
[2024-03-08 07:44] LABS: Blood Urea Nitrogen 16 mg/dl (9-20); Calcium 9.3 mg/dl (8.4-10.2); Carbon Dioxide 21 mmol/L (22-30); Chloride 102 mmol/L (98-107); Estimated Creatinine Clearance 77 ml/min; Glucose 86 mg/dl (70-99); Sodium 140 mmol/L (135-145); eGFR > 60.00
[2024-03-08] MEDS: ELIQUIS 5 MG PO ×2 (07:44→20:08)
[2024-03-08] MEDS: TOPROL XL 25 MG PO ×2 (07:44→20:08)
[2024-03-08] MEDS: CRESTOR 40 MG PO (07:44)
[2024-03-08] MEDS: LOW STRENGTH ASPIRIN 81 MG PO (07:44)
[2024-03-08] MEDS: PACERONE 400 MG PO (07:47)
[2024-03-08 07:50] VITALS: BP 126/76
[2024-03-08] MEDS: TESSALON PERLES 200 MG PO ×3 (07:50→20:06)
--- NOTE | 2024-03-08 08:09 | CON.CAR ---
Addendum entered and electronically signed by Beck Alvarez MD 03/08/24 11:19:
I saw and examined the patient.
The DRAINLAYER's note was reviewed and I agree with the note.
53-year-old male who underwent mitral valve repair/minithoracotomy 01/30/2024 postop course notable for Afib/flutter, pericarditis and pleural effusion requiring thoracentesis. Patient initially had been on colchicine and Toradol for pericarditis
but then colchicine was discontinued after patient was placed on amiodarone for his atrial arrhythmias. Patient has been seen by EP with eventual plan for ablation. After patient's thoracentesis he had briefly been placed on a course of steroids
but has not been on steroids for at least 3 weeks. Patient's had a dry cough that has increased over the course of 5 or 6 days he also developed some right-sided chest and back discomfort that he notes with deep breath and with cough if he is just
sitting up he will only feel it with deep breath or with cough however if he lays down it is more persistent.. ECG shows sinus rhythm without acute changes. On exam lungs are clear with no evidence of rub cardiac exam unremarkable. No evidence of
pericardial rub. Sitting up patient appears comfortable and in no distress. Chest CT 03/07/2024 with small right pleural effusion and compressive atelectasis no pericardial effusion reported.
Patient appears to have a component of pleuritic chest pain and also has cough and right sided effusion. Patient may have component of pleurisy although some of his chest pain could just be related to vigorous cough. Considering previous history
of pericarditis and the fact that he has some increase in chest discomfort laying flat it is possible patient could have combination of pleuritis and pericarditis ( pleuropericarditis). Avoiding colchicine due to med med interaction with
amiodarone. Considering the combination issues above may need to consider steroids. Recommend the following
-Echocardiogram
-Pulmonary consultation. Issues discussed with Dr. Ashley Haile who will evaluate
-Additional plans regarding treatment after pulmonary consultation.
-Continue to monitor on telemetry for recurrent arrhythmias. Patient reports taking amiodarone 400 mg twice daily at home. Would reduce dosing and have patient on 200 mg daily at discharge. Will also have EP review.
Original Note:
Consultation
Consultation Request
Date/Time Consultation Requested: 03/07/242054
Date/Time Consultation Performed: 03/08/24808
Requesting Provider: Brigida Brizuela NP
Performing Provider: Belen HAGAN for Dr. Alvarez
Reason for Consultation: pleural effusion s/p MV repair
Medical History
-
Chief Complaint: right sided chest pain and cough
History of Present Illness:
53 y/o male with hypertension, dyslipidemia, and severe MR (s/p MV repair with mini thoracotomy 01/30/24), bradycardia, and afib/aflutter on amiodarone and Eliquis. He has MV repair 01/30/24 and was placed on colchicine for pericarditis- he also
received Toradol. After d/c, he returned 02/04 to hospital with pleural effusion (right) requiring thoracentesis for 600 ml. He was also placed on steroid course. He returned 02/08/24 with atrial tachycardia 2:1 conduction 147 BPM. He spontaneously
converted back to SB and was sent home. He returned 02/10/24 with aflutter at 163 BPM. He went back into SR, but was started on amiodarone and Eliquis. Due to interaction with amiodarone, colchicine was stopped at that time. He returned 02/16/24 to ER
with rapid HR again and was seen to Aflutter again. He was given a dose of IV metoprolol, converted to SR and home metoprolol was increased. He saw Dr. Reyes on 02/24/24 and is scheduled for an ablation next month and remains on amiodarone in the
meantime. He is here for evaluation of cough and right sided chest pain since Tuesday, as recommended by his PCP who he saw in office yesterday. His right sided chest pain is worse with laying and inspiration and cough. It goes through to his back.
His cough is non-productive. Cough is better this AM, but pain is not. He was given IV Lasix and Tessalon Perles. Dr. Agee is door builder for patient.
Past Medical History
Past Medical History: Arrhythmias, HTN, Hypercholesterolemia and Valvular Disease
Social History
Tobacco: Non-Smoker
Personal:
Living: With Family
Allergies / Home Medications
Allergy/AdvReac Type Severity Reaction Status Date / Time
No Known Allergies Allergy Verified 02/16/24 15:09
�Medication �Instructions �Recorded �Confirmed �Type
aspirin 81 mg chewable tablet 81 mg PO DAILY Blood Clot 12/21/23 03/07/24 History
(Richard Chewable Low Dose Aspirin) Prevention/Tx
cholecalciferol (vitamin D3) 50 50 mcg PO DAILY Supplement 12/21/23 03/07/24 History
mcg (2,000 unit) tablet (Vitamin
D3)
rosuvastatin 40 mg tablet 40 mg PO DAILY High Cholesterol 12/21/23 03/07/24 History
vitamin B12 500 mcg-folic acid 400 1 tab PO DAILY Supplement 12/21/23 03/07/24 History
mcg tablet
acetaminophen 325 mg tablet 650 mg (2 x 325 mg) PO Q4HPRN PRN 02/01/24 03/07/24 Rx
mild pain,headache,temp >101F #0
tabs
therapeutic multivitamin 1 tab PO DAILY 02/08/24 03/07/24 History
amiodarone 400 mg tablet 400 mg PO BID #60 tabs 02/10/24 03/07/24 Rx
apixaban 5 mg tablet (Eliquis) 5 mg PO BID #60 tabs 02/10/24 03/07/24 Rx
metoprolol succinate 25 mg 25 mg PO BID Heart 03/07/24 03/07/24 History
tablet,extended release 24 hr disease/condition
(Toprol XL)
Review of Systems
-
History Source: Patient
All other systems: Negative unless noted
Respiratory: Cough
Cardiac: Chest Pain
Physical Exam
Vital Signs
Temp Pulse Resp BP Pulse Ox
98.6 F 59 16 126/76 93
03/08/24 07:50 03/08/24 07:50 03/08/24 07:50 03/08/24 07:50 03/08/24 07:50
Lab Results
03/08/24 06:17
03/08/24 06:17
Troponin I < 0.012 ng/ml 03/07/24 14:36
Physical Exam
General: Well Developed, Well Nourished and No Apparent Distress
HEENT: Normocephalic and Anicteric
Respiratory: Other (diminished to right base)
Cardiac: Regular Rhythm
Musculoskeletal: No Edema
Skin: Warm and Dry
Neuro: AO x 3
Psych: Calm
Impression / Plan
-
Chest discomfort, cough:
-chest discomfort consistent with pericarditis
-right pleural effusion noted, but is small
-cough improved, but still present s/p Tessalon Perles and IV Lasix
-will obtain echo
-of note, patient was on colchicine, but this was stopped when amiodarone was started due to drug-drug interaction
MR s/p MV repair (01/30/24):
-CT surgery is consulted
-right minithoracotomy site well healed
HTN:
-stable
-continue metoprolol and monitor
PAF, Atypical atrial flutter:
-plan is for ablation next month with Dr. Reyes
-on amiodarone 400 mg PO BID currently- decrease to lower dosing at d/c. This will be temporary medicine for patient.
-continue metoprolol 25 mg PO BID
-continue Eliquis for OAC
Bradycardia:
-hx SB, but stable presently on current meds
-follow telemetry
Dyslipidemia:
-on statin
Data Reviewed
-
EKG: Tracing Personally Visualized and interpreted (SB 57 BPM)
Radiology: Report Reviewed by me (No active cardiopulmonary disease.)
CT Scan: Report Reviewed by me (There is no pulmonary embolism Cardiomegaly without associated pulmonary edema Small right pleural effusion with compressive atelectasis at the posterior right lung base)
Ultrasound: Report Reviewed by me (chest: Small right pleural effusion)
Medical Tests (Nuc Med, Echo etc): Report Reviewed by me (Echo 02/02/24: LVEF is 60-65%. S/p mitral valve repair and 34 mm band annuloplasty. Peak/mean gradients across the mitral valve are 8/2 mmHg. No mitral regurgitation is seen. No significant
pericardial effusion.)
Labs: Labs Reviewed by me
--- NOTE | 2024-03-08 11:26 | CON.PUL ---
Consultation
Consultation Request
Date/Time Consultation Requested: 03/08/2024 - 111
Date/Time Consultation Performed: 03/08/2024 - 1123
Requesting Provider: Dr. Alvarez
Performing Provider: Dr. De Los Santos
Reason for Consultation: Chest pain
Medical History
-
Chief Complaint: SOB & right-sided chest pain
History of Present Illness:
53-year-old male non-smoker with a past medical history of severe MR s/p radical mitral valve repair (01/30/2024) complicated by pleural effusions + pericarditis treated with outpatient colchicine, hyperlipidemia, asthma, hypertension, history of
bradycardia, history of hayfever, insomnia, at high risk for TREVOR, kidney stones and depression who presents with SOB + chest pain that worsens when laying down. He was instructed by his PCP to come to the ER due to shortness of breath. In the ER
he was afebrile, pulse rate 60, saturating 96% on room air and BP 167/84. Labs showed normal WBC at 10.1, Hb 12.8, troponin negative at <0.012, and COVID antigen negative. He was admitted to telemetry with cardiology consulted. Pulmonary now
consulted for additional recommendations/management given concern for pleurisy +/- pericarditis.
When I saw the patient, patient's Niki, was at bedside. All questions were answered. He denies fevers, chills, rash, joint ache or personal or family history of autoimmune disease. He says the pain feels similar to when he was here on
02/05/2024 although it was more severe than. His cough is worse upon lying down.
He had a radical mitral valve repair on 01/30/[address] Medina with postoperative course complicated by pleural effusions + pericarditis, and he was discharged home with colchicine X1 month on 02/03/2024. He had return to the ER 2 days later with
severe right-sided chest pain (trop peaked at 0.189), and was admitted x 1 day and underwent right-sided thoracentesis, removing 600 cc of clear sincere-colored fluid (no studies were sent). He came to the ER again on 02/08/2024 due to a rapid heart
rate, CTA chest was negative for an acute PE and troponin was downtrending (peak of 0.041) and he was discharged home. He returned again to the ER on 02/09 with palpitations and similar symptoms as 2 days prior. He was suspected to be in atrial
flutter with 2:1 conduction, and he was started on amiodarone load + Eliquis. He lastly return to the ER on 02/16/2024 with elevated heart rate into the 140s and he was asymptomatic with no chest pain or shortness of breath. Troponin was negative,
he was treated with 5 mg IV Lopressor and then converted to sinus rhythm and was increased his metoprolol to 25 mg BID from once daily.
Of note, patient follows with us in the [facility] office with Dr. Medina, last office visit on 01/08/2024. At that time patient exhibited symptoms concerning for underlying sleep disordered breathing including snoring. He is currently being arranged for
testing for TREVOR. Patient also endorsed chronic cough at that visit saying he has had this for most of his life not relieved with inhalers. He carries a history of mild intermittent asthma but has denied shortness of breath or exertional symptoms.
Spirometry obtained at that last visit showed no evidence of obstruction and mild restriction (FVC: 76% / 3.29 L) and FeNO was low. He was told to follow-up with us in 3 months.
PMHx: History of severe MR with multiple torn cords s/p radical MV repair (01/30/2024), post-cardiac surgery pleural effusion + pericarditis (January 2024), hyperlipidemia, asthma, hypertension, history of bradycardia, chronic bronchitis, history of
hayfever, insomnia, high risk for TREVOR, history of frequent ear infections, kidney stones, osteoarthritis, depression
PSHx: Radical mitral valve repair with right minithoracotomy (01/30/2024)
Past Medical History
Past Medical History: Other (Above as per HPI)
Past Surgical History: Other (Above as per HPI)
Social History
Tobacco: Non-smoker
Alcohol: None
Drug: None
Personal:
Living: With Family
Employment: Employed
Family History
Family History: CAD (Mother), Diabetes (Father, aunt, grandfather + paternal grandfather) and Hypertension (Father)
Allergies / Home Medications
Allergies
Allergy/AdvReac Type Severity Reaction Status Date / Time
No Known Allergies Allergy Verified 02/16/24 15:09
Home Medications
�Medication �Instructions �Recorded �Confirmed �Last Taken �Type
aspirin 81 mg chewable tablet 81 mg PO DAILY Blood Clot 12/21/23 03/07/24 03/07/24 History
(Richard Chewable Low Dose Aspirin) Prevention/Tx
cholecalciferol (vitamin D3) 50 50 mcg PO DAILY Supplement 12/21/23 03/07/24 03/07/24 History
mcg (2,000 unit) tablet (Vitamin
D3)
rosuvastatin 40 mg tablet 40 mg PO DAILY High Cholesterol 12/21/23 03/07/24 03/07/24 History
vitamin B12 500 mcg-folic acid 400 1 tab PO DAILY Supplement 12/21/23 03/07/24 03/07/24 History
mcg tablet
acetaminophen 325 mg tablet 650 mg (2 x 325 mg) PO Q4HPRN PRN 02/01/24 03/07/24 02/05/24 Rx
mild pain,headache,temp >101F #0
tabs
therapeutic multivitamin 1 tab PO DAILY 02/08/24 03/07/24 03/07/24 History
amiodarone 400 mg tablet 400 mg PO BID #60 tabs 02/10/24 03/07/24 03/07/24 Rx
apixaban 5 mg tablet (Eliquis) 5 mg PO BID #60 tabs 02/10/24 03/07/24 03/07/24 Rx
metoprolol succinate 25 mg 25 mg PO BID Heart 03/07/24 03/07/24 03/07/24 History
tablet,extended release 24 hr disease/condition
(Toprol XL)
Review of Systems
-
History Source: Patient
All other systems: Negative unless noted
Vitals / Labs / Diagnostic Testing
Vital Signs
Temp Pulse Resp BP Pulse Ox
98.6 F 59 16 126/76 93
03/08/24 07:50 03/08/24 07:50 03/08/24 07:50 03/08/24 07:50 03/08/24 09:27
Lab Data
03/08/24 06:17
03/08/24 06:17
Diagnostic Testing:
Physical Exam
-
HEENT: Normocephalic and Anicteric
Cardiovascular: S1/S2 and Peripheral Edema (negative)
Respiratory: Wheeze (negative), Rales (Right anterior hemithorax), Rhonchi (negative) and Non-Labored Respirations
GI: Soft, Non Distended, Non Tender and Normal Bowel Sounds
Neurology: AO x 3 and Tremors (negative)
Skin: Warm and Dry
General: Respiratory Distress (negative), Comfortable, Fever (negative) and Chills (negative)
Assessment
-
Assessment: 53-year-old male non-smoker with a PMHx of severe MR s/p radical mitral valve repair (01/30/2024) complicated by pleural effusions + pericarditis treated with outpatient colchicine, hyperlipidemia, asthma, hypertension, history of
bradycardia, history of hayfever, insomnia, at high risk for TREVOR, kidney stones and depression who presents with SOB + chest pain that worsens when laying down. He remains hemodynamically stable and afebrile, with normal WBC on initial blood work
and negative troponin. He was admitted to telemetry with cardiology consulted. Pulmonary service now consulted for additional management/recommendations of his chest pain + shortness of breath. Of note, he did have a recent radical mitral valve
repair due to severe MR with torn cords, with postoperative course complicated by pleural effusions + pericarditis. He has had multiple ER visits since that surgery due to either chest pain or rapid heart rate and was found to be in a flutter with
2:1 conduction on 02/10/2024 and started on amiodarone load + Eliquis. He does follow with us in the office as well and is currently being worked up for TREVOR.
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
bronchitis, history of hayfever, insomnia, high risk for TREVOR, history of frequent ear infections, kidney stones, osteoarthritis, depression
Impression:
#SOB + chest pain concerning for postoperative pleuritis +/- recurrent pericarditis
#Small right-sided pleural effusion with compressive atelectasis; this pleural effusion itself is not large enough to be causing his SOB, but it may be associated with pleurisy
#History of postoperative atrial flutter currently on amiodarone
#History of severe MR s/p radical mitral valve repair complicated by postoperative pleural effusions + pericarditis (January 2024)
#Mild intermittent asthma not on inhalers
#HTN
#Insomnia
#At increased risk of TREVOR
Plan:
- Current EKG does not show typical changes consistent with pericarditis although there is subtle NC elevation in aVR, and NC segment depression in all leads except for aVL + V1
- Although patient has chest pain that is worse upon laying down, he does not have a pericardial effusion on echo done today
- Maintain SpO2 >90-94% with supplemental O2 as needed
- Cardiology on board, and recs and management of his atrial flutter is appreciated
- Continue amiodarone, but reduce to lowest required dose to avoid possible pulmonary toxicity
- Unfortunately even if we want to treat his suspected recurrent pericarditis with colchicine, given he is on amiodarone this is too risky due to drug�drug interactions with risk of colchicine toxicity
- Check inflammatory markers including ESR and CRP --> elevated with CRP 161, ESR 58
- Start prednisone at 0.5mg/kg with slow taper
- Anti-tussants prn with Tessalon Perles and codeine
- Incentive spirometer encouraged
- Replete electrolytes with K>4, Mg>2
- Maintain euglycemia with goal BG >100 and <180
- prn nebulized bronchodilators - not currently bronchospastic
- DVT ppx: Eliquis
Pulmonary service will continue to follow along. Advised to continue following us in the office, as he has an appointment with us on 04/23/2024 with DANYA Oneill at 09:00AM. We may need to move up that appointment.
Data:
CTA Chest 03/07/2024:
There is no pulmonary embolism
Cardiomegaly without associated pulmonary edema
Small right pleural effusion with compressive atelectasis at the posterior right lung base
Chest US 03/07/2024: Small right pleural effusion
Total time spent today was 55 minutes for this encounter. Time includes reviewing laboratory test/imaging results, reviewing pertinent medical records, obtaining and reviewing medical history, performing an appropriate exam, ordering medications,
tests and procedures. Time also includes documentation of this encounter, coordinating patient care and communicating with other healthcare professionals. Total time does not include separately billed tests performed on this date of service.
[2024-03-08 11:30] VITALS: BP 124/73
[2024-03-08 12:34] LABS: TSH Reflex To Free T4 3.46 uIU/ml (0.47-4.68)
[2024-03-08 13:07] LABS: Erythrocyte Sed Rate 58 mm/hour (0-20)
--- NOTE | 2024-03-08 14:48 | W.PN.HOSP.TC ---
Today's Communication/Plan
-
see note
Assessment / Plan
Assessment / Plan
1. Recurrent right-sided pleural effusion
Right-sided pleurisy
-On 02/04 patient underwent right-sided thoracentesis of 600 cc clear pleural fluid. No fluid studies collected at that time.
-Repeat CT chest this admission showing small rim of right-sided pleural effusion.
-Chest ultrasound confirmed low effusion not amenable to thoracentesis
-Patient having tenderness on palpation on right mid back. Classical cough on deep inspiration and pain on the right side suggestive of ongoing pleurisy
-Cannot start high-dose NSAIDs as patient requiring to be on Eliquis and increased bleeding risk
-Patient was provided colchicine as part of postoperative pericarditis although that had to be discontinued due to drug interaction
-Patient had some improvement with steroid course and possibly be tried again if pulmonology agrees.
-Providing trial of some lidocaine patch/K-pad to help localized pain
-Already on tramadol 100 mg every 6 hours, may switch to oxycodone if required
2. Recent mitral valve repair
-Follow-up repeat echocardiogram report
3. Paroxysmal atrial fibrillation
-Cardiology input noted. Maintain on amiodarone
-Maintained on Eliquis therapy
4. HLD
-statin continued
DVT Prophylaxis - eliquis
CODE status - full code
Total time spent : 55 mins
Anticipated Discharge: 24 - 48 hours
Subjective/Interval History
-
Date of Service: March 08, 2024
Complaining of right-sided mid back pain
Some dry cough
No other issues overnight
Objective Data
-
Labs:
Laboratory Results
03/08/24
06:17
WBC 8.6
Hgb 13.0
Hct 38.3 L
Plt Count 286
Sodium 140
Potassium 4.0
Chloride 102
Carbon Dioxide 21 L
BUN 16
Creatinine 1.0
Glucose 86
Calcium 9.3
Vital Signs:
Vital Signs
Temp Pulse Resp BP Pulse Ox
98.4 F 55 16 124/73 94
03/08/24 11:30 03/08/24 11:30 03/08/24 11:30 03/08/24 11:30 03/08/24 11:30
Review of Systems
-
Respiratory: Reports No Symptoms
Cardiac: Reports No Symptoms
Abdomen/GI: Reports No Symptoms
Physical Exam
-
General: No Apparent Distress and Comfortable
HEENT: Negative Oxygen
Respiratory: Clear to Auscultation
Cardiac: Regular Rhythm and S1/S2; Negative Murmur or Rub
GI: Soft, Nontender and Nondistended
Musculoskeletal: No Edema
Neuro: Awake, Alert, Oriented, No Motor Deficits and Nonfocal/Grossly Intact
Psych: Calm
--- NOTE | 2024-03-08 14:59 | CM ---
Addendum entered by [place] Reyna 03/08/24 15:03:
PCP: Tila March
Pharmacy: [facility]
Denies any food/utilities/transportation/housing insecurities.
Original Note:
Met with patient and .
Dx: Pleural effusion
PMH: recent mitral valve repair
Awaiting 2D echo today.
Lives at home with his in a 1 story home. 0 steps to enter.
PLOF: Independent, no device
No anticipated needs.
PLAN: Discharge when stable to home. No needs.
will transport.
[2024-03-08 15:15] VITALS: BP 141/77
[2024-03-08] MEDS: LIDOCAINE 4% PATCH 1 PATCH TOPICAL (16:00)
[2024-03-08] MEDS: SOLU-MEDROL PF 40 MG IV (18:28)
[2024-03-08 19:43] VITALS: BP 126/74
[2024-03-08] MEDS: PACERONE 200 MG PO (20:07)
[2024-03-08 23:45] VITALS: BP 136/79
[2024-03-09 03:54] VITALS: BP 123/67
[2024-03-09 06:23] LABS: Hematocrit 41.1 % (39.0-52.0); Hemoglobin 13.9 g/dL (13.0-18.0); Mean Corp Hgb Conc. 33.8 g/dL (33.0-37.0); Mean Corpuscular Hgb 31.2 pg (27.0-31.0); Mean Corpuscular Volume 92.2 fL (80.0-94.0); Mean Platelet Volume 8.9 fL (7.4-10.4); Platelet Count 343 10^3/uL (130-400); Red Blood Cell Count 4.46 10^6/uL (4.70-6.10); Red Cell Dist. Width 12.7 % (11.5-14.5); White Blood Cell Count 6.6 10^3/uL (4.8-10.8)
[2024-03-09 06:51] LABS: Blood Urea Nitrogen 23 mg/dl (9-20); Calcium 9.7 mg/dl (8.4-10.2); Carbon Dioxide 24 mmol/L (22-30); Chloride 99 mmol/L (98-107); Estimated Creatinine Clearance 86 ml/min; Glucose 139 mg/dl (70-99); Sodium 143 mmol/L (135-145); eGFR > 60.00
[2024-03-09 07:10] VITALS: BP 136/74
[2024-03-09] MEDS: ELIQUIS 5 MG PO (08:04)
[2024-03-09] MEDS: TESSALON PERLES 200 MG PO (08:04)
[2024-03-09] MEDS: CRESTOR 40 MG PO (08:04)
[2024-03-09] MEDS: TOPROL XL PO (08:05)
[2024-03-09] MEDS: PACERONE 200 MG PO (08:06)
[2024-03-09] MEDS: DELTASONE 40 MG PO (08:06)
[2024-03-09] MEDS: LIDOCAINE 4% PATCH 1 PATCH TOPICAL (08:06)
[2024-03-09] MEDS: LOW STRENGTH ASPIRIN 81 MG PO (08:06)
--- NOTE | 2024-03-09 09:28 | W.PN.PUL3 ---
Today's Communication / Plan
-
Continue with prednisone with extended taper
Outpatient follow-up with our office will be arranged
May need to be seen sooner depending on his symptoms especially as he gets to lower dosages of his prednisone taper
We can also increase his prednisone prior to his appointment if he cannot get in soon enough
Advised to also follow-up closely with cardiology and his PCP
Patient being prepared for discharge home today. He has an appointment with us on 04/23/2024 with DANYA Oneill at 09:00AM. Pulmonary service will now sign off. Please reconsult if there are any additional questions/concerns, or if patient's
respiratory status deteriorates.
Assessment
-
Assessment: 53-year-old male non-smoker with a PMHx of severe MR s/p radical mitral valve repair (01/30/2024) complicated by pleural effusions + pericarditis treated with outpatient colchicine, hyperlipidemia, asthma, hypertension, history of
bradycardia, history of hayfever, insomnia, at high risk for TRVEOR, kidney stones and depression who presents with SOB + chest pain that worsens when laying down. He remains hemodynamically stable and afebrile, with normal WBC on initial blood work
and negative troponin. He was admitted to telemetry with cardiology consulted. Pulmonary service now consulted for additional management/recommendations of his chest pain + shortness of breath. Of note, he did have a recent radical mitral valve
repair due to severe MR with torn cords, with postoperative course complicated by pleural effusions + pericarditis. He has had multiple ER visits since that surgery due to either chest pain or rapid heart rate and was found to be in a flutter with
2:1 conduction on 02/10/2024 and started on amiodarone load + Eliquis. He does follow with us in the office as well and is currently being worked up for TREVOR.
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
bronchitis, history of hayfever, insomnia, high risk for TREVOR, history of frequent ear infections, kidney stones, osteoarthritis, depression
Impression:
#SOB + chest pain concerning for postoperative pleuritis +/- recurrent pericarditis - unlikely the latter given no rub and no pericardial effusion seen on TTE from yesterday
#Small right-sided pleural effusion with compressive atelectasis; this pleural effusion itself is not large enough to be causing his SOB, but it may be associated with pleurisy
#History of postoperative atrial flutter currently on amiodarone
#History of severe MR s/p radical mitral valve repair complicated by postoperative pleural effusions + pericarditis (January 2024)
#Mild intermittent asthma not on inhalers
#HTN
#Insomnia
#At increased risk of TREVOR
Plan:
- EKG from 03/07/2024 does not show typical changes consistent with pericarditis although there is subtle MI-segment elevation in aVR, and MI segment depression in all leads except for aVL + V1
- Although patient has chest pain that is worse upon laying down, he does not have a pericardial effusion on echo done yesterday
- Maintain SpO2 >90-94% with supplemental O2 as needed
- Cardiology on board, and recs and management of his atrial flutter is appreciated
- Continue amiodarone, but reduce to lowest required dose to avoid possible pulmonary toxicity --> now on 200mg PO BID
- Unfortunately even if we want to treat his suspected recurrent pericarditis with colchicine, given he is on amiodarone this is too risky due to drug�drug interactions with risk of colchicine toxicity
- Check inflammatory markers including ESR and CRP --> elevated with CRP 161, ESR 58
- Continue prednisone at 40mg daily with slow taper, reducing by 10mg every 6 days until off
- Anti-tussants prn with Tessalon Perles and codeine
- Incentive spirometer encouraged
- Replete electrolytes with K>4, Mg>2
- Maintain euglycemia with goal BG >100 and <180
- prn nebulized bronchodilators - not currently bronchospastic
- DVT ppx: Eliquis
Patient being prepared for discharge home today. Advised to continue following us in the office, as he has an appointment with us on 04/23/2024 with DANYA Oneill at 09:00AM. We may need to move up that appointment if symptoms worsen upon
lower prednisone dosages during taper. He was advised to remain in close contact with our office and to remain cognizant of his symptoms.
Pulmonary service will now sign off. Thank you for allowing us to be involved in the care of this patient. Please reconsult if there are any additional questions/concerns, or if patient's respiratory status deteriorates.
Data:
CTA Chest 03/07/2024:
There is no pulmonary embolism
Cardiomegaly without associated pulmonary edema
Small right pleural effusion with compressive atelectasis at the posterior right lung base
Chest US 03/07/2024: Small right pleural effusion
TTE 03/08/2024:
Normal biventricular size and systolic function without regional wall motion
abnormality. Estimated LVEF 60-65%.
s/p mitral valve repair with peak/mean gradients across the mitral valve are
6/3 mmHg. No mitral regurgitation is seen.
Normal pericardium without effusion.
Compared to 02/02/24: no significant change.
Total time spent today was 35 minutes for this encounter. Time includes reviewing laboratory test/imaging results, reviewing pertinent medical records, obtaining and reviewing medical history, performing an appropriate exam, ordering medications,
tests and procedures. Time also includes documentation of this encounter, coordinating patient care and communicating with other healthcare professionals. Total time does not include separately billed tests performed on this date of service.
Subjective Data
-
Date of Service:
Date of Service: March 09, 2024
Chief Complaint: Pulmonary Follow Up
Subjective:
Patient seen and evaluated today at bedside. Currently saturating 94% on room air. Prednisone started yesterday and he feels much better today. He is eager to be discharged home. Afebrile overnight. Chest pain and cough has improved. He denies
SOB, DYER, abdominal pain, nausea, fevers or chills.
Review of Systems
General: Other (Negative unless mentioned above)
Objective Data
Data Reviewed
Vital Signs / I&O / Oxygen:
Vital Signs
Temp Pulse Resp BP Pulse Ox
98 F 58 16 136/74 93
03/09/24 07:10 03/09/24 08:05 03/09/24 07:10 03/09/24 08:05 03/09/24 07:10
Intake and Output
03/08/24 03/09/24 03/10/24
06:59 06:59 06:59
Intake Total 1080 / 1080
Balance 1080 / 1080
SaO2 93
Physical Exam
General: Respiratory Distress (negative), Comfortable, Chills (negative), Sweats (negative) and Good Appetite
HEENT: Normocephalic and Anicteric
Cardiovascular: S1-S2, Rub (negative), JVD (negative) and Peripheral Edema (negative)
Respiratory: Wheeze (negative), Crackles (Mildly heard in the right anterior hemithorax upon inspiration) and Rhonchi (negative)
GI: Soft, Non Distended, Non Tender and Normal Bowel Sounds
Neurology: AO x 3 and Tremors (negative)
Skin: Warm, Dry and Jaundice (negative)
Labs/Micro/Reports
Lab Data
03/09/24 04:36
03/09/24 04:36
--- NOTE | 2024-03-09 10:52 | W.PN.CD ---
Today's Communication / Plan
-
reduce amiodarone to 200mg daily
prednisone per pulmonology
Impression / Plan
-
Chest discomfort, cough: c/f postoperative pleuritis +/- recurrent pericarditis
-of note, patient was on colchicine, but this was stopped when amiodarone was started due to drug-drug interaction
-echo is stable without pericardial effusion
-prednisone slow taper per pulmonology
MR s/p MV repair (01/30/24):
-CT surgery is consulted
-right minithoracotomy site well healed
-stable on echo
HTN:
-stable
-continue metoprolol and monitor
PAF, Atypical atrial flutter:
-plan is for ablation next month with Dr. Reyes
-reduce amiodarone to 200mg daily (s/p PO load)
-continue metoprolol 25 mg PO BID
-continue Eliquis for OAC
Bradycardia:
-hx SB, but stable presently on current meds
-follow telemetry
Dyslipidemia:
-on statin
Physical Exam
Vital Signs/Labs
Vital Signs
Temp Pulse Resp BP Pulse Ox
98 F 58 16 136/74 93
03/09/24 07:10 03/09/24 08:05 03/09/24 07:10 03/09/24 08:05 03/09/24 07:10
03/08/24 03/09/24 03/10/24
06:59 06:59 06:59
Actual Weight 81.647 kg
03/09/24 04:36
03/09/24 04:36
LAB Results
03/07/24
14:36
Troponin I < 0.012
Physical Exam
Constitutional: No acute distress and Comfortable
EENT: Moist mucous membranes
Cardiovascular: Rhythm & rate is regular, Pedal edema is absent, JVD pressure is normal and Systolic murmur absent
Respiratory: Respiratory effort normal, Lungs clear to auscul. and Wheeze Absent
Neuro/Psych: AO x 3
Data Reviewed
-
Date of Service: March 09, 2024
EKG: Other (Tele: SR/SB 50s-60s)
Labs: Labs Reviewed by me
[2024-03-09 11:05] VITALS: BP 139/80
--- NOTE | 2024-03-09 12:04 | CM ---
Patient seen at bedside. Patient eager for discharge and states that he has no needs. CM will continue to follow for discharge planning needs.
Plan; home with no needs
--- NOTE | 2024-03-09 13:03 | W.PN.HOSP.TC ---
Today's Communication/Plan
-
d/c home
Assessment / Plan
Assessment / Plan
1. Recurrent right-sided pleural effusion
Right-sided pleurisy
-On 02/04 patient underwent right-sided thoracentesis of 600 cc clear pleural fluid. No fluid studies collected at that time.
-Repeat CT chest this admission showing small rim of right-sided pleural effusion.
-Chest ultrasound confirmed low effusion not amenable to thoracentesis
-Patient having tenderness on palpation on right mid back. Classical cough on deep inspiration and pain on the right side suggestive of ongoing pleurisy
-Cannot start high-dose NSAIDs as patient requiring to be on Eliquis and increased bleeding risk
-Patient was provided colchicine as part of postoperative pericarditis although that had to be discontinued due to drug interaction
-Patient did not use any tramadol therapy overnight
-Symptoms better today, pulmonology input noted and will provide tgapering course of steroids at discharge
-Patient to follow up with pulmonology in office
2. Recent mitral valve repair
-Follow-up repeat echocardiogram report
3. Paroxysmal atrial fibrillation
-Cardiology input noted. Maintain on amiodarone
-Maintained on Eliquis therapy
4. HLD
-statin continued
DVT Prophylaxis - eliquis
CODE status - full code
More than 30 minutes spent in discharge including
Final examination of the patient
Summarizing hospital stay
Instructions for continuing care to all relevant caregivers
Preparation of discharge records, prescriptions, and referral forms
Total time spent (in minutes): 38 mins
Anticipated Discharge: Today
Subjective/Interval History
-
Date of Service: March 09, 2024
right sided chest pain is better
no other issues
Objective Data
-
Labs:
Laboratory Results
03/09/24
04:36
WBC 6.6
Hgb 13.9
Hct 41.1
Plt Count 343
Sodium 143
Potassium 5.0
Chloride 99
Carbon Dioxide 24
BUN 23 H
Creatinine 0.9
Glucose 139 H
Calcium 9.7
Vital Signs:
Vital Signs
Temp Pulse Resp BP Pulse Ox
98.5 F 61 18 139/80 94
03/09/24 11:05 03/09/24 11:05 03/09/24 11:05 03/09/24 11:05 03/09/24 11:05
I&O
03/08/24 03/09/24 03/10/24
06:59 06:59 06:59
Intake Total 1080 / 1080
Balance 1080 / 1080
Review of Systems
-
Respiratory: Reports No Symptoms
Cardiac: Reports No Symptoms
Abdomen/GI: Reports No Symptoms
Physical Exam
-
General: No Apparent Distress and Comfortable
HEENT: Negative Oxygen
Respiratory: Clear to Auscultation
Cardiac: Regular Rhythm and S1/S2; Negative Murmur or Rub
GI: Soft, Nontender and Nondistended
Musculoskeletal: No Edema
Neuro: Awake, Alert, Oriented, No Motor Deficits and Nonfocal/Grossly Intact
Psych: Calm
--- NOTE | 2024-03-10 17:04 | W.DCSUMMARY ---
Discharge Summary
Discharge Data
Date of Admission: 03/07/24
Date of Discharge: 03/09/24
-
Pending Results: No
Hospital Course
Discharging Physician : Dr Kaushal Carrizales
Disposition : To home
Primary care physician : Dr Sridevi lantigua
Principal Discharge diagnosis :
Right pleural effusion
Right-sided pleurisy
Chronic Discharge diagnosis :
Mitral valve repair
Paroxysmal atrial fibrillation on Eliquis
Hyperlipidemia
Post mitral valve repair pericarditis
Hospital Course :
Patient is a 53-year-old male with no mentioned past medical history came to ER after having new onset of right-sided pain. Patient now underwent minithoracotomy and mitral valve repair last month and postoperatively was found to having
pericarditis/pericardial effusion requiring colchicine therapy. Patient also had A-fib RVR and for which patient required to be on amiodarone and thus need of discontinuing colchicine. Patient had also had right-sided effusion for which patient
had thoracentesis done last month. In ER patient had a CT chest which showed a small rim of right-sided pleural effusion and follow-up chest ultrasound showed effusion not amenable to thoracentesis. Patient was evaluated by
cardiology/cardiothoracic surgery and pulmonology. Patient was having pain and discomfort in the right side and this was felt to be related to pleurisy. As patient is not a candidate of colchicine or NSAID therapy patient was recommended to be
given short course of tapering steroids. After improvement in symptoms patient was discharged home on oral steroid taper. Patient was provided symptomatic care. Patient will follow-up with pulmonology in office.
Important imaging findings :
None
Procedure findings :
None
Discharge Plan
-
Patient Disposition: Home (Routine Discharge)
Discharge Diagnosis/Procedures: Right chest pleurisy, small effusion
Condition: Fair
Diet: 2 Gram Sodium
Activity: As tolerated
Driving Restrictions: As prior to admission
Bathing Restrictions: OK to Shower
Referrals:
Toshia Braun NP [Specified Professional Personl] - 04/23/24 9:00 am
Tila Lantigua MD [Family Provider] - in one week
Prescriptions:
New
amiodarone 200 mg Tablet
200 mg PO DAILY Qty: 30 2RF
benzonatate 100 mg Capsule
200 mg PO TIDPRN PRN (Reason: cough) Qty: 30 0RF
lidocaine 5 % adhesive patch,medicated
2 patch topical DAILY Qty: 30 0RF
prednisone 10 mg Tablet
See Rx Instructions .ROUTE .COMPLEX Qty: 32 0RF
Rx Instructions:
Take By Mouth:
40 mg daily x3 days, 30 mg daily x3 days,
20 mg daily x3 days, 10 mg daily x3 days,
5mg Daily x3 days
Continued
aspirin [Richard Chewable Aspirin] 81 mg Tablet,Chewable
81 mg PO DAILY
rosuvastatin 40 mg Tablet
40 mg PO DAILY
cholecalciferol (vitamin D3) [Vitamin D3] 50 mcg (2,000 unit) Tablet
50 mcg PO DAILY
vitamin G88-refld acid 500-400 mcg Tablet
1 tab PO DAILY
acetaminophen 325 mg Tablet
650 mg PO Q4HPRN PRN (Reason: mild pain,headache,temp >101F ) Qty: 0 0RF
therapeutic multivitamin Tablet
1 tab PO DAILY
Eliquis 5 mg tablet
5 mg PO BID Qty: 60 0RF
metoprolol succinate [Toprol XL] 25 mg tablet extended release 24 hr
25 mg PO BID
Discontinued
amiodarone 400 mg tablet
400 mg PO BID Qty: 60 0RF
Discharge Orders:
Discharge Patient (As Directed); Ordered 03/09/24
Ordered By: Kaushal Carrizales
Discharge Date and Time
Discharge Date/Time: 03/09/24 13:54
Print Language: YI
== END 2024-03-09 13:54 | disposition home or self-care (01) | DRG 187 ==
LOC: 2 NORTH 19:42
PROVIDERS: Registered Nurse; ADMITTING PHYSICIAN Student in an Organized Health Care Education/Training Program; ATTENDING PHYSICIAN Hospitalist; CONSULT PHYSICIAN Internal Medicine Cardiovascular Disease; CONSULT PHYSICIAN Internal Medicine Critical Care Medicine; CONSULT PHYSICIAN Thoracic Surgery (Cardiothoracic Vascular Surgery); EMERGENCY PHYSICIAN Emergency Medicine; FAMILY PHYSICIAN Family Medicine
DX: J90 Pleural effusion, not elsewhere classified (principal); I31.39 Other pericardial effusion (noninflammatory); J98.11 Atelectasis; Z79.01 Long term (current) use of anticoagulants; I48.0 Paroxysmal atrial fibrillation; E78.00 Pure hypercholesterolemia, unspecified; F32.A Depression, unspecified; F41.9 Anxiety disorder, unspecified; G47.00 Insomnia, unspecified; G47.33 Obstructive sleep apnea (adult) (pediatric); I10 Essential (primary) hypertension; M16.0 Bilateral primary osteoarthritis of hip; Z79.82 Long term (current) use of aspirin
CPT/HCPCS: 71046; 71275; 76604; 80048; 80053; 84443; 84484; 85025; 85027; 85652; 86140; 87811; 93005; 93306; 93798; 99285; Q9967

== ENCOUNTER 2024-03-19 09:00 | Outpatient (RCR) | payer BC, SELFPAY | END 2024-03-19 23:59 | disposition home or self-care (01) | LOC: CRHB 09:00 | PROVIDERS: ATTENDING PHYSICIAN Internal Medicine Cardiovascular Disease | DX: I25.10 Atherosclerotic heart disease of native coronary artery without angina pectoris (principal); Z95.2 Presence of prosthetic heart valve | CPT/HCPCS: 93798 ==

== ENCOUNTER 2024-03-28 08:46 | Outpatient (RCR) | payer BC, SELFPAY | END 2024-03-28 23:59 | disposition home or self-care (01) | LOC: CRHB 08:46 | PROVIDERS: ATTENDING PHYSICIAN Internal Medicine Cardiovascular Disease | DX: Z95.2 Presence of prosthetic heart valve (principal) | CPT/HCPCS: 93798 ==

== ENCOUNTER 2024-04-01 02:17 | Emergency (ER) | payer BC, SELFPAY ==
[2024-04-01 02:25] VITALS: BP 154/86
[2024-04-01 02:32] VITALS: BMI 30.9
[2024-04-01 02:39] VITALS: BP 137/84
[2024-04-01 02:52] LABS: % Basophils 0.8 % (0-2); % Eosinophils 2.9 % (0-6); % Immature Granulocytes 0.2 % (0-0.5); % Lymphocytes 18.4 % (20.5-51.1); % Monocytes 9.1 % (1.7-9.3); % Neutrophils 68.6 % (42.2-75.2); Absolute Basophils 0.1 10^3/uL (0-0.2); Absolute Eosinophils 0.2 10^3/uL (0-0.7); Absolute Lymphocytes 1.5 10^3/uL (1.2-3.4); Absolute Monocytes 0.8 10^3/uL (0.1-0.6); Absolute Neutrophils 5.8 10^3/uL (1.4-6.5); Hematocrit 39.1 % (39.0-52.0); Hemoglobin 12.9 g/dL (13.0-18.0); Mean Corpuscular Hgb 30.2 pg (27.0-31.0); Mean Corpuscular Volume 91.6 fL (80.0-94.0); Mean Platelet Volume 8.9 fL (7.4-10.4); Nucleated Red Blood Cells % 0 % (-); Platelet Count 243 10^3/uL (130-400); Red Blood Cell Count 4.27 10^6/uL (4.70-6.10); Red Cell Dist. Width 14.9 % (11.5-14.5); White Blood Cell Count 8.4 10^3/uL (4.8-10.8)
[2024-04-01 03:00] VITALS: BP 124/73
[2024-04-01 03:11] LABS: ALT (SGPT) 19 U/L (0-50); AST (SGOT) 38 U/L (17-59); Albumin 4.1 g/dl (3.5-5.0); Alkaline Phosphatase 41 U/L (38-126); Blood Urea Nitrogen 25 mg/dl (9-20); Calcium 9.2 mg/dl (8.4-10.2); Carbon Dioxide 23 mmol/L (22-30); Chloride 109 mmol/L (98-107); Estimated Creatinine Clearance 88 ml/min; Glucose 95 mg/dl (70-99); Potassium 4.9 mmol/L (3.5-5.1); Sodium 143 mmol/L (135-145); Total Bilirubin 0.9 mg/dl (0.2-1.3); Total Protein 6.9 g/dl (6.3-8.2); eGFR > 60.00
[2024-04-01 03:18] LABS: Troponin I < 0.012 ng/ml
--- NOTE | 2024-04-01 03:20 | ED.GENMED ---
History of Present Illness
General
Chief Complaint: Cardiac Symptoms
Source: patient and records
Exam Limitations: none
Time Seen by Provider: 04/01/24 02:38
Nursing documentation reviewed up to this point in time: agreed with
History of Present Illness
History of Present Illness:
53-year-old male with a past medical history of hypertension, hyperlipidemia, GERD, recent mitral valve repair 01/30/2024 (Dr. Medina), paroxysmal atrial fibs/flutter on Eliquis who presents to the emergency room for evaluation of chest pain. Patient
reports onset of symptoms and they have been constant since that time although the intensity waxes and wanes. He describes a sharp right sided chest pain that is worse when he takes a deep breath. No relieving factors noted. He denies
any associated shortness of breath. He reports occasional cough. Denies any fevers or chills. Denies palpitations. He denies any nausea, vomiting, abdominal pain. No diaphoresis. He denies any URI symptoms. He denies any recent trauma or
injury. Denies similar symptoms in the past. He says that tonight symptoms seemed a bit more intense and so he decided to come to the emergency room to be assessed.
Past History
Past History
ED Past Medical History: GERD, HTN, Valvular disease and Other (Kidney stones)
ED Past Surgical History: None
Social History
Tobacco: Non-smoker
Alcohol: Occasional
Drug: None
Personal:
Living: with family
Employment: Employed
Family History
Family History: Diabetes, Hypertension and CAD
Review of Systems
Review of Systems
All Other Systems: ROS reviewed and negative except as documented in HPI and ROS
Constitutional: Denies fever or chills
EENT: Denies sore throat or runny nose
Respiratory: Reports cough; Denies trouble breathing
Cardiac: Reports chest pain; Denies diaphoresis or palpitations
ABD/GI: Denies abdominal pain, nausea or vomiting
: Denies flank pain
Musculoskeletal: Denies edema, neck pain or back pain
Neurological: Denies dizzy or headache
Phy Exam
Physical Exam
Physical Exam:
General: Awake, alert, oriented x3; no acute distress
Head: Normocephalic, atraumatic
Eyes: Conjunctiva normal, sclera anicteric
Throat: Airway intact, handling secretions
Neck: Trachea midline, supple without meningismus
Lungs: Clear to auscultation bilaterally, no wheezing, rales, rhonchi
Heart: Regular rate and rhythm, no murmurs, gallops, or rubs; mild right parasternal tenderness; well-healed incisional scars right chest wall
Abd: Soft, non distended, nontender
Neuro: No gross deficits
Skin: no rash
Extremities: No edema in extremities, equal pulses in all extremities
Scores
Heart Failure Risk
Heart Failure Risk Score: Not Applicable
Heart Score for Chest Pain Patients
STEMI patient?: No
History: Slightly or Non-Suspicious
ECG: Normal
Age: >45 - <65 years
Risk Factors: >/= 3 Risk Factors or History of CAD
Troponin: </= Normal Limit
Heart Score for Chest Pain Patients: 3
Heart Score Risk: 2.5% MACE over next 6 weeks
Withdrawal Assessment of Alcohol
Withdrawal Assessment Completed?: Not applicable
Course
Orders/Labs/Results
Orders:
Orders
04/01/24 02:18
Electrocardiogram (*1) Urgent
Reason for Study: Chest Pain
EKG- Treatment ONCE
04/01/24 02:39
Complete Blood Count/With Diff Urgent
Comprehensive Metabolic Panel Urgent
Troponin I Urgent
04/01/24 03:19
CT Chest Pe Study Urgent
Comment:
Reason For Exam: right pleuritic chest pain
04/01/24 03:37
PTT Urgent
Prothrombin Time Urgent
04/01/24 04:51
Amoxicillin 875 mg/Clav 125 mg [Augmentin 875 mg/125 mg] 1 tablet PO NOW STA
Doxycycline [Vibramycin] 100 mg PO NOW STA
Abnormal Lab Results
04/01/24
02:39
RBC 4.27 L 10^6/uL
(4.70-6.10)
Hgb 12.9 L g/dL
(13.0-18.0)
RDW 14.9 H %
(11.5-14.5)
Absolute Monos (auto) 0.8 H 10^3/uL
(0.1-0.6)
Lymphocytes % 18.4 L %
(20.5-51.1)
Chloride 109 H mmol/L
(98-107)
BUN 25 H mg/dl
(9-20)
04/01/24 02:39
04/01/24 02:39
Vital Signs
Initial and Last Documented VS:
Initial Vital Signs
Temp Pulse Resp BP Pulse Ox
37.2 C 78 18 154/86 97
04/01/24 02:25 04/01/24 02:25 04/01/24 02:25 04/01/24 02:25 04/01/24 02:25
Last Documented Vital Signs
Temp Pulse Resp BP Pulse Ox
37.2 C 70 25 124/73 96
04/01/24 02:25 04/01/24 03:45 04/01/24 03:45 04/01/24 03:00 04/01/24 03:45
MDM/Problems Addressed
Differential Diagnosis Includes:
PE, costochondritis, pneumothorax, pneumonia, bronchitis, pericarditis, ACS, pleural effusion
MDM/Problems Addressed:
53-year-old male presents to the emergency room for evaluation of right sided pleuritic chest pain ongoing for the past 3 days. No trauma reported. Hypertensive but otherwise normal vitals. Physical exam as above. EKG shows no STEMI. Plan to
place an IV check labs including a CBC, CMP. Check troponin. Will check CTA to rule out PE and to evaluate for recurrent pleural effusion, pericardial effusion, pneumothorax, pneumonia. Will monitor closely reassess after the above.
Labs reviewed: CBC shows marginal anemia, CMP no clinically significant abnormalities. Troponin undetectable and with consistent symptoms for a few days now this is sufficient to rule out acute MT. Awaiting CTA.
CTA returned back: Negative for PE, positive for right middle lobe pneumonia. Fortunately patient has no signs of sepsis, pulse ox is in the high 90s on room air and respiratory rate on my assessment is 16. I think he is stable for discharge on
oral antibiotics. He feels very comfortable to this plan and in fact prefers not to stay in the hospital. I did advise him to follow-up with his primary doctor within the next week for reassessment and we spoke in detail about return precautions.
All questions answered.
Chronic conditions affecting care:
Hypertension, hyperlipidemia, mitral valve repair
Acute Exacerbation and/or Progression of Chronic Illness:
Acutely hypertensive
Acute Exacerbation and/or Progression of Chronic Illness: HTN
*Radiology
Radiology exam reviewed: radiology read reviewed
*Pulse Oximetry
Patient hypoxic: no
*EKG
Interpreted by ED Provider?: Yes
Heart Rate: 73
Rate: normal
Rhythm: sinus
[place]: normal axis
Interval: normal interval
QRS Pattern: normal QRS
Ischemia: non-specific ST changes
*Critical Care Note
Total Time (30-74mins, 75-104mins- exclusive of procedures): Not Applicable
Data Reviewed
Review of Other/Old Records Reveals: Labs, Records, Operative Reports and Discharge Summary
Source: patient and records
ED Attending Note
-
Portions of this chart may have been created with voice recognition software.� Occasional wrong word or��sound alike� substitutions may have occurred due to the inherent limitations of voice recognition software.
Discharge Plan
Departure
Patient Disposition: Home (Routine Discharge)
Date of Disposition: 04/01/24
Time of Disposition: 04:52
Patient with high blood pressure during this ER visit?: Yes
Discharge Problem:
Pneumonia
Instructions: Pneumonia in adults
Prescriptions:
New
amoxicillin-pot clavulanate 875-125 mg tablet
1 tab PO BID 7 Days Qty: 14 0RF
doxycycline hyclate 100 mg tablet
100 mg PO BID 7 Days Qty: 14 0RF
No Action
aspirin [Richard Chewable Aspirin] 81 mg Tablet,Chewable
81 mg PO DAILY
rosuvastatin 40 mg Tablet
40 mg PO DAILY
cholecalciferol (vitamin D3) [Vitamin D3] 50 mcg (2,000 unit) Tablet
50 mcg PO DAILY
vitamin R24-mcwsk acid 500-400 mcg Tablet
1 tab PO DAILY
therapeutic multivitamin Tablet
1 tab PO DAILY
Eliquis 5 mg tablet
5 mg PO BID Qty: 60 0RF
amiodarone 200 mg Tablet
200 mg PO DAILY Qty: 30 2RF
Referrals:
Tila March MD [Family Provider] - Follow up in 5-7 days
Activity Restrictions/Additional Instructions:
Thank you for visiting the Emergency Department at [facility].
1. Please schedule a follow up appointment as directed. Call first thing tomorrow morning to make an appointment.
2. If indicated, please take your medications as instructed and indicated on discharge paperwork.
3. If any of your symptoms do not improve, or persist, or become more severe within 6-12 hours, please return to the emergency department for further care.
4. Please return to the emergency department if you develop a headache, neck pain/stiffness, fever greater than 100.4F, chest pain, shortness of breath, persistent nausea, vomiting, slurred speech, difficulty walking, numbness/tingling, weakness,
signs of infection or any other symptoms that are worrisome to you.
Please call [phone] if you have any questions.
Interventions
Interventions:
*Risk Screen - Suicide Last Done: 04/01/24 02:21
*General Assessment Last Done: 04/01/24 02:21
*Neglect/Abuse Screening Last Done: 04/01/24 02:21
ED- Fall Risk Assessment Last Done: 04/01/24 02:21
*ED COVID-19 Vaccine History Last Done: 04/01/24 02:21
ED- Pulmonary Assessment Last Done: 04/01/24 02:33
ED- Cardiac Assessment Last Done: 04/01/24 02:33
Discharge Date and Time
Print Language: TURKISH
[2024-04-01 03:55] LABS: INR 1.03; PT 13.3 Sec (11.4-14.6)
[2024-04-01 03:56] LABS: APTT 29.1 Sec (23.4-35.0)
[2024-04-01 04:33] VITALS: BP 131/86
[2024-04-01 05:00] VITALS: BP 135/90
[2024-04-01] MEDS: VIBRAMYCIN 100 MG PO (05:13)
[2024-04-01] MEDS: AUGMENTIN 875 MG/125 MG 1 TABLET PO (05:15)
== END 2024-04-01 05:30 | disposition home or self-care (01) ==
LOC: EMR 02:17
PROVIDERS: EMERGENCY PHYSICIAN Emergency Medicine; FAMILY PHYSICIAN Family Medicine
DX: J18.9 Pneumonia, unspecified organism (principal); I10 Essential (primary) hypertension; E78.5 Hyperlipidemia, unspecified; I48.0 Paroxysmal atrial fibrillation; Z79.01 Long term (current) use of anticoagulants; K21.9 Gastro-esophageal reflux disease without esophagitis; Z98.890 Other specified postprocedural states
CPT/HCPCS: 99284; 71275; 80053; 84484; 85025; 85610; 85730; 93005; Q9967

== ENCOUNTER → 2024-04-10 10:47 | Outpatient (REF) | payer BC, SELFPAY | LOC: RAD 10:47 | PROVIDERS: ATTENDING PHYSICIAN Nurse Practitioner Family | DX: Z87.01 Personal history of pneumonia (recurrent) (principal) | CPT/HCPCS: 71046 ==

== ENCOUNTER → 2024-04-13 14:30 | Outpatient (REF) | payer BC, SELFPAY | LOC: RAD 14:30 | PROVIDERS: ATTENDING PHYSICIAN Nurse Practitioner Family | DX: R07.81 Pleurodynia (principal) | CPT/HCPCS: 71046 ==

== ENCOUNTER → 2024-04-19 15:16 | Outpatient (REF) | payer BC, SELFPAY | LOC: RAD 15:16 | PROVIDERS: ATTENDING PHYSICIAN Nurse Practitioner Family | DX: R07.81 Pleurodynia (principal) | CPT/HCPCS: 71046 ==

== ENCOUNTER 2024-04-23 16:00 | Inpatient (IN) | payer BC, SELFPAY ==
[2024-04-23] VITALS (11 sets, daily range): BP systolic 102–146; BP diastolic 67–85; BMI 31.0
--- NOTE | 2024-04-23 09:27 | ED.GENMED ---
History of Present Illness
<DANYA Smith - Last Filed: 04/23/24 14:58>
General
Chief Complaint: Chest Problem
Source: patient
Exam Limitations: none
Time Seen by Provider: 04/23/24 09:17
Nursing documentation reviewed up to this point in time: agreed with
History of Present Illness
History of Present Illness:
53-year-old male status post mitral valve repair January 2024 with postop pericarditis/pericardial effusion(completed colchicine therapy) A-fib and right-sided pleural effusion with thoracentesis, recent right middle lobe pneumonia April 01
completed Augmentin presents to the ER for evaluation. Patient reports over the weekend he had increasing shortness of breath and has pain in his chest and right side when he takes a deep breath. He has difficulty laying down. Reports he never
seems to feel better despite completing antibiotics for pneumonia and despite having pleural effusion drained.
He does report his aviation safety inspector believes his pain is muscular and has him on 972 mg of aspirin (12 chewable baby ASA ).
in addition patient is on Eliquis.
Past History
<DANYA Smith - Last Filed: 04/23/24 14:58>
Past History
ED Past Medical History: GERD, HTN, Valvular disease and Other (Kidney stones)
ED Past Surgical History: None
Social History
Tobacco: Non-smoker
Alcohol: Occasional
Drug: None
Personal:
Living: with family
Employment: Employed
Family History
Family History: Diabetes, Hypertension and CAD
Review of Systems
<DANYA Smith - Last Filed: 04/23/24 14:58>
Review of Systems
Allergies reviewed?: Yes
All Other Systems: ROS reviewed and negative except as documented in HPI and ROS
Constitutional: Reports no symptoms; Denies fever, fatigue or chills
Respiratory: Reports cough, trouble breathing and other (pain with deep breath)
Cardiac: Reports chest pain
: Reports no symptoms
Musculoskeletal: Reports no symptoms
Skin: Reports no symptoms
Neurological: Reports no symptoms
Psychiatric: Reports no symptoms
Phy Exam
<DANYA Smith - Last Filed: 04/23/24 14:58>
General Physical Exam
General Presentation: no apparent distress
General age: appears stated age
General Skin: warm and dry
General Habitus: normal
General Mental: alert
General Hydration: appears well hydrated
Cardiovascular Exam
Cardiovascular Exam: regular rate/rhythm, no murmur and normal peripheral pulses
Pulmonary Exam
Pulmonary Exam: lungs clear, no respiratory distress and other (slightly tender over MS chest region )
Neurological Exam
Neurological Exam: alert and oriented x3
Musculoskeletal Exam
Musculoskeletal Exam: full ROM
Skin Exam
Skin Exam: normal color and warm/dry
Psychiatric Exam
Psychiatric Exam: normal mood/affect
Course
<DANYA Smith - Last Filed: 04/23/24 14:58>
Orders/Labs/Results
Orders:
Orders
04/23/24 09:07
Electrocardiogram (*1) Urgent
Reason for Study: Chest Pain
EKG- Treatment ONCE
04/23/24 09:45
Complete Blood Count/With Diff Urgent
PT/INR [Prothrombin Time] Urgent
PTT Urgent
04/23/24 09:48
Chest [CR Chest - 2 Views ] Urgent
Comment:
Reason For Exam: cp /pain with deep breath
04/23/24 10:10
C-Reactive Protein Urgent
Comment: CRP ADDED ON BY FLOOR 2:50PM 04-23-24
Comprehensive Metabolic Panel Urgent
NT-proBNP Urgent
Comment: PROBNP ADDED ON BY FLOOR 3:10PM 04-23-24
Troponin I Urgent
04/23/24 13:29
Echo Follow-up Study Routine
Reason for Study: Chest pain, R/O pericardial effusion
04/23/24 14:48
Add On- LAB Urgent
Tests Added?: CRP
04/23/24 15:[address] [CT Chest W/o Iv Contrast] Routine
Comment:
Reason For Exam: Persistent chest pain after MVrepair Jan 2024
Cardiothoracic Surgery Consult Routine
Consulting Provider: Ivan Medina
Was physician already notified: Yes
Reason for Consult: Chest pain after MV surgery
04/23/24 15:05
Colchicine 0.3 mg PO NOW STA
04/23/24 15:11
Add On- LAB Urgent
Tests Added?: proBNP
04/23/24 15:26
CARDIOLOGY CONSULT Routine
Consulting Provider: Jesus Zuniga
Was physician already notified: Yes
04/23/24 15:27
Furosemide [Lasix] 20 mg IV NOW STA
04/23/24 15:45
Ipratropium/Albuterol Sulfate [Duoneb] 3 ml INH R NOW ONE
Abnormal Lab Results
04/23/24 04/23/24
09:45 10:10
RBC 4.25 L 10^6/uL
(4.70-6.10)
Hgb 12.8 L g/dL
(13.0-18.0)
Hct 37.5 L %
(39.0-52.0)
Abs Immat Gran (auto) 0.1 H 10^3/uL
(0-0.05)
Absolute Neuts (auto) 7.9 H 10^3/uL
(1.4-6.5)
Absolute Monos (auto) 0.7 H 10^3/uL
(0.1-0.6)
Lymphocytes % 16.7 L %
(20.5-51.1)
Alkaline Phosphatase 206 H U/L
(38-126)
04/23/24 09:45
04/23/24 10:10
Vital Signs
Initial and Last Documented VS:
Initial Vital Signs
Temp Pulse Resp BP Pulse Ox
97.5 F 67 16 118/74 99
04/23/24 09:09 04/23/24 09:09 04/23/24 09:09 04/23/24 09:09 04/23/24 09:09
Last Documented Vital Signs
Temp Pulse Resp BP Pulse Ox
97.5 F 74 14 102/67 97
04/23/24 09:09 04/23/24 14:45 04/23/24 14:45 04/23/24 14:00 04/23/24 14:45
Residential Sales Executive consulted with Physician
Residential Sales Executive consulted with physician?: Yes
Name of Physician Consulted: DR Camargo
<Can Camargo MD - Last Filed: 04/23/24 15:53>
Orders/Labs/Results
Orders:
Orders
04/23/24 09:07
Electrocardiogram (*1) Urgent
Reason for Study: Chest Pain
EKG- Treatment ONCE
04/23/24 09:45
Complete Blood Count/With Diff Urgent
PT/INR [Prothrombin Time] Urgent
PTT Urgent
04/23/24 09:48
Chest [CR Chest - 2 Views ] Urgent
Comment:
Reason For Exam: cp /pain with deep breath
04/23/24 10:10
C-Reactive Protein Urgent
Comment: CRP ADDED ON BY FLOOR 2:50PM 04-23-24
Comprehensive Metabolic Panel Urgent
NT-proBNP Urgent
Comment: PROBNP ADDED ON BY FLOOR 3:10PM 04-23-24
Troponin I Urgent
04/23/24 13:29
Echo Follow-up Study Routine
Reason for Study: Chest pain, R/O pericardial effusion
04/23/24 14:48
Add On- LAB Urgent
Tests Added?: CRP
04/23/24 15:[address] [CT Chest W/o Iv Contrast] Routine
Comment:
Reason For Exam: Persistent chest pain after MVrepair Jan 2024
Cardiothoracic Surgery Consult Routine
Consulting Provider: Ivan Medina
Was physician already notified: Yes
Reason for Consult: Chest pain after MV surgery
04/23/24 15:05
Colchicine 0.3 mg PO NOW STA
04/23/24 15:11
Add On- LAB Urgent
Tests Added?: proBNP
04/23/24 15:26
CARDIOLOGY CONSULT Routine
Consulting Provider: Jesus Zuniga
Was physician already notified: Yes
04/23/24 15:27
Furosemide [Lasix] 20 mg IV NOW STA
04/23/24 15:45
Ipratropium/Albuterol Sulfate [Duoneb] 3 ml INH R NOW ONE
Abnormal Lab Results
04/23/24 04/23/24
09:45 10:10
RBC 4.25 L 10^6/uL
(4.70-6.10)
Hgb 12.8 L g/dL
(13.0-18.0)
Hct 37.5 L %
(39.0-52.0)
Abs Immat Gran (auto) 0.1 H 10^3/uL
(0-0.05)
Absolute Neuts (auto) 7.9 H 10^3/uL
(1.4-6.5)
Absolute Monos (auto) 0.7 H 10^3/uL
(0.1-0.6)
Lymphocytes % 16.7 L %
(20.5-51.1)
Alkaline Phosphatase 206 H U/L
(38-126)
04/23/24 09:45
04/23/24 10:10
Vital Signs
Initial and Last Documented VS:
Initial Vital Signs
Temp Pulse Resp BP Pulse Ox
97.5 F 67 16 118/74 99
04/23/24 09:09 04/23/24 09:09 04/23/24 09:09 04/23/24 09:09 04/23/24 09:09
Last Documented Vital Signs
Temp Pulse Resp BP Pulse Ox
97.5 F 74 14 102/67 97
04/23/24 09:09 04/23/24 14:45 04/23/24 14:45 04/23/24 14:00 04/23/24 14:45
<DANYA Smith - Last Filed: 04/23/24 14:58>
MDM/Problems Addressed
MDM/Problems Addressed:
As documented patient is a 53-year-old male status post mitral valve repair/pericarditis pericardial effusion paroxysmal A-fib on Plavix Eliquis and aspirin presents to the ER for evaluation of shortness of breath and discomfort to the chest with
taking a deep breath. Patient reports over the weekend symptoms worsened.
He denies any fever chills. Does have a cough. He presents awake alert he appears mildly uncomfortable however is nontachycardic nontachypneic nonhypoxic with a normal white count, normal chemistries. + cough CHest xray shows a subtle hazy
opacity in the right lung favored to be atelectasis or scarring and is unchanged from prior x-ray there is no new focal consolidation effusion or pneumothorax.
Case reviewed ED physician who examined patient does recommend admission for continued pain.
Pt was seen by Cardiology Dr Zuniga who did discuss with CT surgery they will order non-contrast ct of chest and DR Medina will see him as consult also as discussed with cardiology he will put an order in for low-dose colchicine
Chronic conditions affecting care:
MVR
<DANYA Smith - Last Filed: 04/23/24 14:58>
*Radiology
Radiology exam reviewed: radiology read reviewed
*Pulse Oximetry
Patient hypoxic: no
*EKG
Interpreted by ED Provider?: Yes
Heart Rate: 67
Rate: normal
Rhythm: sinus
Interval: other (qtc 502)
Ischemia: no ischemia
*Critical Care Note
Total Time (30-74mins, 75-104mins- exclusive of procedures): Not Applicable
<DANYA Smith - Last Filed: 04/23/24 14:58>
Patient Management
Discussion with other providers: Client Manager Large Law (DR Zuniga cardiology )
ED Attending Note
<DANYA Smith - Last Filed: 04/23/24 14:58>
-
Portions of this chart may have been created with voice recognition software.� Occasional wrong word or��sound alike� substitutions may have occurred due to the inherent limitations of voice recognition software.
<Can Camargo MD - Last Filed: 04/23/24 15:53>
ED Attending Note
Patient seen and examined by attending physician: Yes
ED Attending Note:
Patient status post mitral valve repair in January 2024, presents to ED secondary to continual cough along with worsening shortness of breath and chest pain, worse at night and in morning, over the past 3 weeks. Patient was evaluated in ED at onset
of his symptoms and was prescribed antibiotics. Since then, patient has had follow-up ointment with his primary care physician as well as his aviation safety inspector, without improvement symptoms. This morning, patient was evaluated by his metallurgical analyst, who
recommended patient come to ED for an evaluation. Patient denies fever or chills. Denies nausea, vomiting, or diarrhea. Denies loss of appetite. Denies back pain. Denies leg pain or swelling. Patient is currently taking Eliquis. Patient
states that he is unable to sleep at nighttime due to his symptoms. In addition, patient has difficult time ambulating due to shortness of breath, especially with coughing spasms.
Physical Exam
General: no apparent distress, not acutely ill
Neck: supple. no meningeal signs. normal psoterior pharynx
Heart: s1/s2 regular rate and rhythm, no murmur. equal radial pulses.
Lungs: no acute respiratory distress. clear bilaterally
Abdomen: normal bowel sounds. not tender. no CVAT
Neuro: alert and oriented. no focal neurological deficits
Skin: no rash
Psychiatric: well kept. interactive and cooperative
Extremities: no edema. no calf tenderness. negative homans. good distal pulses
History and exam inconsistent with acute coronary syndrome, but most likely an inflammatory process, i.e. pericarditis, pericardial effusion, viral illness. As patient has had recent CT chest as well as echocardiogram, will hold off any further
imaging studies at this time. However, in light of patient's ongoing symptoms, but worsening, patient will be admitted for further evaluation and treatment, including symptomatic treatment with anti-inflammatory medication.
Patient evaluated ED by Dr. Zuniga, cardiology, with recommendations for admitting team provided.
Discharge Plan
Departure
Patient Disposition: Admit
Date of Disposition: 04/23/24
Time of Disposition: 14:54
Admit to: Telemetry
Admit to doctor: hospitalist
Presentation/result/management discussed w/ accepting MD/DO: Hospitalist
Patient with high blood pressure during this ER visit?: Yes
Condition: Fair
Covid-19: Not Applicable
Discharge Problem:
Chest pain
Prescriptions:
No Action
aspirin [Richard Chewable Aspirin] 81 mg Tablet,Chewable
81 mg PO .TAPER
Rx Instructions:
04/23/24: Per patient, currently on aspirin taper: Aspirin 975mg daily thru 04/26; 732mg daily 04/27 thru 05/03; 489mg daily 05/04 thru 05/10; 246mg 05/11 thru 05/17; then 81mg once daily
rosuvastatin 40 mg Tablet
40 mg PO DAILY
cholecalciferol (vitamin D3) [Vitamin D3] 50 mcg (2,000 unit) Tablet
50 mcg PO DAILY
vitamin H58-oamwr acid 500-400 mcg Tablet
1 tab PO DAILY
therapeutic multivitamin Tablet
1 tab PO DAILY
amiodarone 200 mg tablet
200 mg PO DAILY
Eliquis 5 mg tablet
5 mg PO BID
omeprazole 40 mg capsule,delayed release(DR/EC)
40 mg PO DAILY
Referrals:
Tila March MD [Family Provider] -
Interventions
Interventions:
*Risk Screen - Suicide Last Done: 04/23/24 09:09
*General Assessment Last Done: 04/23/24 09:22
*Neglect/Abuse Screening Last Done: 04/23/24 09:09
ED- Fall Risk Assessment Last Done: 04/23/24 09:22
*ED COVID-19 Vaccine History Last Done: 04/23/24 09:09
ED- Cardiac Assessment Last Done: 04/23/24 09:22
ED- Pulmonary Assessment Last Done: 04/23/24 09:22
Discharge Date and Time
Print Language: YAKUT
[2024-04-23 09:57] LABS: % Basophils 0.8 % (0-2); % Eosinophils 1.6 % (0-6); % Immature Granulocytes 0.5 % (0-0.5); % Lymphocytes 16.7 % (20.5-51.1); % Monocytes 6.7 % (1.7-9.3); % Neutrophils 73.7 % (42.2-75.2); Absolute Basophils 0.1 10^3/uL (0-0.2); Absolute Eosinophils 0.2 10^3/uL (0-0.7); Absolute Immature Granulocytes 0.1 10^3/uL (0-0.05); Absolute Lymphocytes 1.8 10^3/uL (1.2-3.4); Absolute Monocytes 0.7 10^3/uL (0.1-0.6); Absolute Neutrophils 7.9 10^3/uL (1.4-6.5); Hematocrit 37.5 % (39.0-52.0); Hemoglobin 12.8 g/dL (13.0-18.0); Mean Corp Hgb Conc. 34.1 g/dL (33.0-37.0); Mean Corpuscular Hgb 30.1 pg (27.0-31.0); Mean Corpuscular Volume 88.2 fL (80.0-94.0); Mean Platelet Volume 8.5 fL (7.4-10.4); Nucleated Red Blood Cells % 0 % (-); Platelet Count 365 10^3/uL (130-400); Red Blood Cell Count 4.25 10^6/uL (4.70-6.10); Red Cell Dist. Width 13.7 % (11.5-14.5); White Blood Cell Count 10.7 10^3/uL (4.8-10.8)
[2024-04-23 10:08] LABS: INR 1.14; PT 14.4 Sec (11.4-14.6)
[2024-04-23 10:09] LABS: APTT 32.3 Sec (23.4-35.0)
[2024-04-23 10:40] LABS: ALT (SGPT) 48 U/L (0-50); AST (SGOT) 52 U/L (17-59); Albumin 3.7 g/dl (3.5-5.0); Alkaline Phosphatase 206 U/L (38-126); Blood Urea Nitrogen 18 mg/dl (9-20); Calcium 9.1 mg/dl (8.4-10.2); Carbon Dioxide 26 mmol/L (22-30); Chloride 103 mmol/L (98-107); Estimated Creatinine Clearance 98 ml/min; Glucose 98 mg/dl (70-99); Potassium 3.9 mmol/L (3.5-5.1); Sodium 142 mmol/L (135-145); Total Bilirubin 0.5 mg/dl (0.2-1.3); Total Protein 6.5 g/dl (6.3-8.2); eGFR > 60.00
[2024-04-23 10:48] LABS: Troponin I < 0.012 ng/ml
--- NOTE | 2024-04-23 14:13 | CON.CAR ---
Addendum entered and electronically signed by Jesus Zuniga MD 04/23/24 15:28:
-
-
I saw and examined the patient.
The CORDWOOD CUTTER's note was reviewed and I agree with the note.
Comment: Suspect some inflammatory process. Features of pericarditis. CRP was quite elevated (but only one month from cardiac surgery).
Will add very low dose Colchicine (amio interaction) given his lack of response to high dose ASA.
I spoke with Dr. Medina and asked him to see the patient. Will check echo and CT of chest.
We may need to reluctantly consider a course of steroids but prefer a trial of colchicine first.
Some dyspnea supine => will check pBNP and see response to 1 dose of IV Lasix.
I communicated with Dr. Reyes and suggested plan ablation be postponed pending resolution of this chest pain syndrome.
-
-
Original Note:
Consultation
Consultation Request
Date/Time Consultation Requested: 04/23/2024 13:30
Date/Time Consultation Performed: 04/23/2024 14:00
Requesting Provider: DANYA Rincon
Performing Provider: DANYA Aaron for Dr. Zuniga
Reason for Consultation: Chest discomfort
Medical History
-
Chief Complaint: Chest pain
History of Present Illness:
Darryl Koo is a 53 year old male (known to Dr. Agee, his primary quality assurance manager), with hypertension, dyslipidemia, and severe MR (s/p MV repair with mini thoracotomy 01/30/24), sinus bradycardia, and paroxysmal atrial fibrillation/flutter (on
amiodarone and Eliquis) who presented to the emergency department the chief complaint of chest pain.
Brief review of multiple hospitalizations/office visits:
02/03/2024: Discharged home from radical mitral valve repair on colchicine for postoperative pericarditis
02/08/2024: Atrial tachycardia
02/10/2024: Atrial flutter
03/07/2024: Right pleural effusion status post thoracentesis 600 mL (clear sincere pleural fluid)
04/01/2024: Pneumonia
04/19/2024: Started on aspirin taper by Dr. Agee for pericarditis
He presents today with midsternal epigastric chest pain. It is constant. He reports it is sharp. It gets worse when he lays flat, goes out into cold air, coughs, and changes positions. It seems to be better in the middle of the day. When he
lays flat he gets short of breath. He was started on aspirin taper 04/19/2024. He reports it is getting worse. No acute findings on his labs today other than an alkaline phosphatase of 206.
Past Medical History
Past Medical History: Arrhythmias (Paroxysmal atrial fibrillation/flutter), HTN, Hypercholesterolemia and Valvular Disease (Mitral valve repair [01/30/2024])
Past Surgical History: Cardiac (Mitral valve repair [01/30/2024])
Social History
Tobacco: Non-Smoker
Alcohol: None
Drug: None
Personal:
Living: With Family
Family History
Family History: Reviewed & Not Pertinent
Allergies / Home Medications
Allergy/AdvReac Type Severity Reaction Status Date / Time
No Known Allergies Allergy Verified 04/01/24 02:41
�Medication �Instructions �Recorded �Confirmed �Type
aspirin 81 mg chewable tablet 81 mg PO .TAPER Blood Clot 12/21/23 04/23/24 History
(Richard Chewable Low Dose Aspirin) Prevention/Tx
cholecalciferol (vitamin D3) 50 50 mcg PO DAILY Supplement 12/21/23 04/23/24 History
mcg (2,000 unit) tablet (Vitamin
D3)
rosuvastatin 40 mg tablet 40 mg PO DAILY High Cholesterol 12/21/23 04/23/24 History
vitamin B12 500 mcg-folic acid 400 1 tab PO DAILY Supplement 12/21/23 04/23/24 History
mcg tablet
therapeutic multivitamin 1 tab PO DAILY Supplement 02/08/24 04/23/24 History
amiodarone 200 mg tablet 200 mg PO DAILY Arrhythmia 04/23/24 04/23/24 History
apixaban 5 mg tablet (Eliquis) 5 mg PO BID Blood Clot 04/23/24 04/23/24 History
Prevention/Tx
omeprazole 40 mg capsule,delayed 40 mg PO DAILY GI prophy during 04/23/24 04/23/24 History
release aspirin
Review of Systems
-
History Source: Patient
All other systems: Negative unless noted
Constitutional: Fatigue
EENT: No Symptoms
Respiratory: No Symptoms
Cardiac: Chest Pain
Abdomen/GI: No Symptoms
: No Symptoms
Musculoskeletal: No Symptoms
Skin: No Symptoms
Neurological: No Symptoms
Endocrine: No Symptoms
Hematologic/Lymphatic: No Symptoms
Physical Exam
Vital Signs
Temp Pulse Resp BP Pulse Ox
97.5 F 72 13 146/73 95
04/23/24 09:09 04/23/24 13:30 04/23/24 13:30 04/23/24 13:00 04/23/24 13:45
Lab Results
04/23/24 09:45
04/23/24 10:10
Troponin I < 0.012 ng/ml 04/23/24 10:10
Physical Exam
General: Well Developed, Well Nourished, No Apparent Distress and Comfortable
HEENT: Normocephalic, Anicteric and Moist Mucous Membranes
Respiratory: Clear and Non Labored Respirations
Cardiac: S1/S2 and Regular Rhythm; Negative Peripheral Edema
Breast: Deferred by me
GI: Soft, Non Tender, Non Distended and Normal Bowel Sounds
Rectal: Deferred by Provider
Genito-urinary: No Costovertebral Tender
Musculoskeletal: No Clubbing, No Cyanosis and No Edema
Skin: Warm and Dry
Neuro: AO x 3
Hematologic/Lymphatic: No Lymphadenopathy
Psych: Calm
Impression / Plan
-
Chest pain
Pericarditis
-Worse laying flat, cold air exposure, and movement
-Rule out pericardial effusion with limited TTE
-EKG stable
-Chest x-ray without acute findings
-CRP 161 03/08/2024, current CRP pending
-Started on ASA taper 04/19/2024, transition to colchicine, 0.3mg x 1 now
Severe mitral regurgitation S/P radial MV repair (01/30/2024)
-TTE 03/08/2024: Peak/mean gradient 6/3 mmHg without MR
-Consider CT Surgery consultation
Abnormal alkaline phosphatase
-AST and ALT are little above his baseline, await proBNP, perhaps early heart failure (weight is also up with orthopnea)
Paroxysmal atrial fibrillation/flutter
-In sinus on amiodarone
-Plans for ablation later this month, this will likely need to be postponed in the setting of pericarditis
-Oral Anticoagulation: Eliquis 5mg BID, he denies missed doses and abnormal bleeding
-[id number]: score 1 (HTN)
HTN, stable on medical therapy
Dyslipidemia, continue statin
Data Reviewed
-
Labs: Labs Reviewed by me
Old Records: Reviewed
--- NOTE | 2024-04-23 15:45 | HPS.HSE ---
Family Physician
-
Family Physician: Tila March
Chief Complaint
-
Chest Pain
History of Present Illness
Patient is a 53 y/o male past medical history of severe mitral regurgitation s/p mitral repair in January which has been complicated by right pleural effusion requiring thoracentesis, pneumonia, and pericarditis who presents with chest pain. Patient
reports pain in lower sternal/epigastric region. He notes pain seems worse in the morning, and at night. He notes pain gets worse when lying flat. He reports significant cough that is non-productive. He reports associated shortness of breath.
He denies fevers, sweats or chills.
Medical History
Past Medical History
Past Medical History: Reports Other
Additional Past Medical History:
Severe Mitral Regurgitation s/p Mitral Valve Repair
Paroxysmal Atrial Fibrillation
Essential Hypertension
Hyperlipidemia
Anxiety/Depression
GERD
Past Surgical History: Reports Other
Additional Past Surgical History:
Mitral Valve Repair - Jan 2024
Social History
Tobacco: Non-smoker
Alcohol: None
Family History
Family History: Not pertinent
Allergies / Home Medications
Allergies reflects when Allergies were last updated in [employer].
Home Medications with original date entered in [employer]
Allergy/Medication List:
Allergies
Allergy/AdvReac Type Severity Reaction Status Date / Time
No Known Allergies Allergy Verified 04/01/24 02:41
Home Medications
aspirin 81 mg chewable tablet (Richard Chewable Low Dose Aspirin) 81 mg PO .TAPER Blood Clot Prevention/Tx 12/21/23
cholecalciferol (vitamin D3) 50 mcg (2,000 unit) tablet (Vitamin D3) 50 mcg PO DAILY Supplement 12/21/23
rosuvastatin 40 mg tablet 40 mg PO DAILY High Cholesterol 12/21/23
vitamin B12 500 mcg-folic acid 400 mcg tablet 1 tab PO DAILY Supplement 12/21/23
therapeutic multivitamin 1 tab PO DAILY Supplement 02/08/24
amiodarone 200 mg tablet 200 mg PO DAILY Arrhythmia 04/23/24
apixaban 5 mg tablet (Eliquis) 5 mg PO BID Blood Clot Prevention/Tx 04/23/24
omeprazole 40 mg capsule,delayed release 40 mg PO DAILY GI prophy during aspirin 04/23/24
Review of Systems
-
A 12 point ROS was completed and negative except as noted: Yes
Constitutional: Denies Fever or Chills
Respiratory: Reports Cough and Trouble Breathing
Cardiac: Reports Chest Pain
Abdomen/GI: Denies Abdominal Pain, Nausea or Vomiting
Physical Exam
Vital Signs
Vital Signs
Temp Pulse Resp BP Pulse Ox
97.5 F 74 14 102/67 97
04/23/24 09:09 04/23/24 14:45 04/23/24 14:45 04/23/24 14:00 04/23/24 14:45
Physical Exam
General: Comfortable, Conversant and Other (Frequent cough)
HEENT: Anicteric and Moist mucous membranes
Respiratory: Other (Coarse breath sounds lower regions; Deep breathing triggers cough); No Wheezes
Cardiac: S1/S2 and Regular Rhythm
GI: Soft and Tender (Patient reports palpation in epigastric region cause lower sternal area pain)
Rectal: Deferred by Provider
Musculoskeletal: No Clubbing, No Cyanosis and No Edema
Skin: Warm and Dry
Neuro: Awake, Alert, Oriented and Nonfocal/grossly intact
Psych: Calm
Laboratory Results
-
04/23/24 09:45
04/23/24 10:10
Laboratory Results
PT 14.4 Sec (11.4-14.6) 04/23/24 09:45
INR 1.14 04/23/24 09:45
APTT 32.3 Sec (23.4-35.0) 04/23/24 09:45
Total Bilirubin 0.5 mg/dl (0.2-1.3) 04/23/24 10:10
AST 52 U/L (17-59) 04/23/24 10:10
ALT 48 U/L (0-50) 04/23/24 10:10
Alkaline Phosphatase 206 U/L (38-126) H 04/23/24 10:10
Troponin I < 0.012 ng/ml 04/23/24 10:10
Data Reviewed
-
Medical Tests (Nuc Med, Echo, EKG etc): Report Reviewed by me
Lab Data: Labs Reviewed by me
Old Records: Reviewed
Impression/Plan
-
Chest Pain, suspect Pericarditis
-Appreciate Cardiology Consult
-Give single dose of colchicine as per cardiology due to interaction with amiodarone
-Consider steroids
Persistent Cough, possible post-pneumonia cough vs cough-variant asthma vs GERD
-Give DuoNeb NOW and continue PRN
-Continue Tessalon Perles PRN
-Continue Protonix
Paroxysmal Atrial Fibrillation
-Continue Eliquis for anticoagulation
-Continue Amiodarone for rhythm control
Severe Mitral Regurgitation s/p Mitral Valve Repair
-Monitor Is&Os and Daily Weights
Hyperlipidemia
-Continue Crestor
DVT proph: Eliquis
Code Status: Full Code
[2024-04-23 15:55] LABS: NT-proBNP 387 pg/ml
[2024-04-23] MEDS: DUONEB 3 ML INH ×2 (16:14→23:11)
[2024-04-23] MEDS: LASIX 20 MG IV (16:14)
--- NOTE | 2024-04-23 17:00 | W.PN.UPDATE ---
Update Note
Progress Note Update
This is an addendum to the H&P written by Debbie Dolan on 04/23/2024. Patient seen and examined independently with PA.
53-year-old male past medical history of severe mitral regurgitation status post mitral valve repair in January complicated by postop atrial fibrillation on Eliquis as well as right pleural effusion status post thoracentesis as well as pneumonia
treated with antibiotics presenting with ongoing pleuritic chest pain and cough. He follows with cardiology who suspected acute pericarditis and treated him with aspirin due to interaction of colchicine with amiodarone.
He presents with persistent symptoms consistent with pericarditis. Hemodynamically stable. CT chest shows tiny right pleural effusion, bilateral atelectasis, tiny pericardial effusion. Echo shows no pericardial effusion. Cardiology consulted and
recommended single dose of colchicine. They recommended 1 dose of IV Lasix. Cardiothoracic surgery also consulted.
--- NOTE | 2024-04-23 17:03 | CONSULT.CT ---
Consultation
-
Date/Time Consultation Requested: 04/23 1500
Date/Time Consultation Performed: 04/23 1700
Requesting Provider: Efrain HIDALGO
Performing Provider: Jeaneth Medina MD
Reason for Consultation: Chronic Pain S/p MVrepair
Patient History
Physicians
Family Physician: Joaquim
History of Present Illness
Darryl Koo is a 53-year-old male with past medical history significant for a mitral valve repair with #34 mm band annuloplasty January 30, 2024. Postoperatively he did well and was discharged on postop day 4 with colchicine for pericarditis for
1 month. On 02/04 patient was readmitted with chest pain and hypoxia. He was diagnosed with a moderate right pleural effusion and received a right thoracentesis for 600 mL of serosanguineous fluid. Again on 03/07 patient was complaining of some
shortness of breath and CAT scan showed a small right pleural effusion with compressive atelectasis. On that admission he was started on a prednisone taper and was following pulmonary. Patient presents to the emergency room today with complaints
of epigastric chest pain and shortness of breath while laying flat. Today he presented to his outpatient pulmonary visit however he was very short of breath due to it being cold outside and they immediately sent him to the emergency room. He
admits to having some shortness of breath and chest pain for 3 weeks and of note he was diagnosed with bacterial pneumonia and was treated with 2 antibiotics. He said that a x-ray at that time of pneumonia diagnoses showed a pleural effusion and he
was treated with Lasix for 1 week which resolved the effusion but did not help relieve his symptoms. Outpatient cardiology was able to start him on an aspirin taper and he was found to have an elevated alk phos. CT scan on this admission showed a
tiny right pleural effusion and bilateral atelectasis. CT surgery was consulted due to his recent mitral valve repair and reoccurring chest pain symptoms.
Past Medical History
Past Medical History: Other
hypertension, dyslipidemia, and severe MR (s/p MV repair with mini thoracotomy 01/30/24), sinus bradycardia, and paroxysmal atrial fibrillation/flutter (on amiodarone and Eliquis)
Past Surgical History
MVrepair in 01/2024
Family History
Mother: N/A
Father: N/A
Social History
Alcohol: None
Drug: None
Tobacco: Non-Smoker
Personal:
Living: With Spouse
Allergies
Allergy/AdvReac Type Severity Reaction Status Date / Time
No Known Allergies Allergy Verified 04/01/24 02:41
Home Medications
�Medication �Instructions �Recorded �Confirmed �Type
aspirin 81 mg chewable tablet 81 mg PO .TAPER Blood Clot 12/21/23 04/23/24 History
(Richard Chewable Low Dose Aspirin) Prevention/Tx
cholecalciferol (vitamin D3) 50 50 mcg PO DAILY Supplement 12/21/23 04/23/24 History
mcg (2,000 unit) tablet (Vitamin
D3)
rosuvastatin 40 mg tablet 40 mg PO DAILY High Cholesterol 12/21/23 04/23/24 History
vitamin B12 500 mcg-folic acid 400 1 tab PO DAILY Supplement 12/21/23 04/23/24 History
mcg tablet
therapeutic multivitamin 1 tab PO DAILY Supplement 02/08/24 04/23/24 History
amiodarone 200 mg tablet 200 mg PO DAILY Arrhythmia 04/23/24 04/23/24 History
apixaban 5 mg tablet (Eliquis) 5 mg PO BID Blood Clot 04/23/24 04/23/24 History
Prevention/Tx
omeprazole 40 mg capsule,delayed 40 mg PO DAILY GI prophy during 04/23/24 04/23/24 History
release aspirin
Review of Systems
-
History Source: Patient
General: Reports Fever, Fatigue and Sleep Disturbance
Respiratory: Reports SOB, WADDELL and Cough (SEVERE)
Cardiac: Reports Chest Pain
Abdomen/GI: Reports No Symptoms
: Reports No Symptoms
Musculoskeletal: Reports No Symptoms
Skin: Reports No Symptoms
Neurological: Reports No Symptoms
Vascular: Reports No Symptoms
Physical Exam
Vital Signs
Temp 97.5 F 04/23/24 09:09
Temp route: Oral 04/23/24 09:09
Pulse 71 04/23/24 16:45
Resp Rate 23 04/23/24 16:45
Blood pressure 122/75 04/23/24 16:14
Blood pressure extremity used: Left upper arm 04/23/24 09:09
Position: Sitting 04/23/24 09:09
MAP (cuff-Marcelina Monitor) 87 04/23/24 16:13
SaO2 94 04/23/24 16:45
Oxygen Mode of Delivery Room air 04/23/24 09:09
Actual Weight 87.1 kg 04/23/24 09:22
Body Mass Index (BMI) 31.0 04/23/24 09:22
Labs
04/23/24 09:45
04/23/24 10:10
PT 14.4 Sec (11.4-14.6) 04/23/24 09:45
APTT 32.3 Sec (23.4-35.0) 04/23/24 09:45
Troponin I < 0.012 ng/ml 04/23/24 10:10
Hdj-I-Mpsbcbqadub Pept 387 pg/ml 04/23/24 10:10
Exam
General: Well Developed, Well Nourished and No Apparent Distress
HEENT: Normocephalic
Neck: Trachea Midline
Respiratory: Crackles (fine at bases) and Other (+cough/ breathing feels like its sucking thru a straw)
Cardiac: S1/S2 and Regular Rhythm
GI: Soft and Non Tender
Rectal: Deferred by Provider
Skin: Warm and Dry
Neuro: AO x 3 and No Motor Deficits
Lymph: No Lymphadenopathy
Psych: Calm
Assessment / Plan
-
53-year-old male with past medical history listed above presents to [facility] with reoccurring shortness of breath since surgery in January.
#Recurrent effusions with associated shortness of breath
#Recent PNA
- Cont IS
- Pulmonary consult
- daily weights/ strict I&Os
- Monitor for fevers
- Control cough with Mucinex and Robitussin
--- NOTE | 2024-04-23 18:47 | PTCARENOTE ---
Pt received from ER @ 1835 admitted for plural effusion and pericardial effusion. VSS, independent, NSR, + Dry cough, RA, PIV x2, no drips, personal belonging in the room.
[2024-04-23] MEDS: TESSALON PERLES 200 MG PO (19:34)
[2024-04-23 21:06] LABS: COVID-19 Antigen Negative (Negative)
[2024-04-23] MEDS: ASPIRIN 975 MG PO (21:09)
[2024-04-24] MEDS: TESSALON PERLES 200 MG PO ×4 (00:02→23:08)
[2024-04-24 03:58] VITALS: BP 112/77
[2024-04-24 04:06] VITALS: BMI 29.5
[2024-04-24 04:25] LABS: Hematocrit 38.5 % (39.0-52.0); Hemoglobin 12.8 g/dL (13.0-18.0); Mean Corp Hgb Conc. 33.2 g/dL (33.0-37.0); Mean Corpuscular Hgb 30.8 pg (27.0-31.0); Mean Corpuscular Volume 92.5 fL (80.0-94.0); Mean Platelet Volume 8.5 fL (7.4-10.4); Platelet Count 343 10^3/uL (130-400); Red Blood Cell Count 4.16 10^6/uL (4.70-6.10); Red Cell Dist. Width 13.8 % (11.5-14.5)
[2024-04-24 04:41] LABS: Blood Urea Nitrogen 17 mg/dl (9-20); Calcium 9.1 mg/dl (8.4-10.2); Carbon Dioxide 23 mmol/L (22-30); Chloride 103 mmol/L (98-107); Estimated Creatinine Clearance 86 ml/min; Glucose 95 mg/dl (70-99); Potassium 3.6 mmol/L (3.5-5.1); Sodium 142 mmol/L (135-145); eGFR > 60.00
[2024-04-24 08:03] VITALS: BP 119/69
[2024-04-24] MEDS: FOLTX 1 TABLET PO (08:12)
[2024-04-24] MEDS: CRESTOR 40 MG PO (08:12)
[2024-04-24] MEDS: VITAMIN D3 (cholecalciferol) 50 MCG PO (08:12)
[2024-04-24] MEDS: THERAGRAN 1 TABLET PO (08:12)
[2024-04-24] MEDS: PACERONE 200 MG PO (08:12)
[2024-04-24] MEDS: ASPIRIN 975 MG PO ×3 (08:12→23:08)
[2024-04-24] MEDS: COLCHICINE 0.3 MG PO (08:12)
[2024-04-24] MEDS: PROTONIX 40 MG PO (08:12)
--- NOTE | 2024-04-24 08:24 | W.PN.CD ---
Today's Communication / Plan
-
High dose aspirin tid for pericarditis as outlined
Colchicine daily for 3 months
Impression / Plan
-
Chest pain
Pericarditis
-Worse laying flat, cold air exposure, and movement
-Rule out pericardial effusion with limited TTE
-EKG stable
-Chest x-ray without acute findings
-CRP 161 03/08/2024, current CRP pending
-Started on ASA taper tid, decreasing by 243 mg each week starting TuesdayApril 27, until back to 81 mg daily
- cont colchicine, 0.3mg daily for 3 months ending July 25 2024
Severe mitral regurgitation S/P radial MV repair (01/30/2024)
-TTE 03/08/2024: Peak/mean gradient 6/3 mmHg without MR
-Consider CT Surgery consultation
Abnormal alkaline phosphatase
-AST and ALT are little above his baseline, await proBNP, perhaps early heart failure (weight is also up with orthopnea)
Paroxysmal atrial fibrillation/flutter
-In sinus on amiodarone
-ablation postponed until pericarditis resolution
-Oral Anticoagulation: Eliquis 5mg BID, he denies missed doses and abnormal bleeding
-[id number]: score 1 (HTN)
HTN, stable on medical therapy
Dyslipidemia, continue statin
Subjective: feeling much improved
Physical Exam
Vital Signs/Labs
Vital Signs
Temp Pulse Resp BP Pulse Ox
97.8 F 70 18 119/69 96
04/24/24 08:05 04/24/24 08:12 04/24/24 08:05 04/24/24 08:12 04/24/24 08:05
04/23/24 04/24/24 04/25/24
06:59 06:59 06:59
Actual Weight 182 lb 12.211 oz
04/24/24 04:05
04/24/24 04:05
PT 14.4 Sec (11.4-14.6) 04/23/24 09:45
INR 1.14 04/23/24 09:45
APTT 32.3 Sec (23.4-35.0) 04/23/24 09:45
04/23/24
10:10
Pgy-X-Nmqpheatduz Pept 387
LAB Results
04/23/24 04/23/24
09:45 10:10
Troponin I Cancelled < 0.012
Physical Exam
Constitutional: No acute distress
EENT: Anicteric
Cardiovascular: Rhythm & rate is regular and Pedal edema is absent
Respiratory: Respiratory effort normal and Lungs clear to auscul.
GI: Soft
Neuro/Psych: AO x 3
Data Reviewed
-
Date of Service: April 24, 2024
Medical Decision Making: Reviewed Test Results
EKG: Tracing Personally Visualized and interpreted (sr)
Echo: Report Reviewed by me
Labs: Labs Reviewed by me
--- NOTE | 2024-04-24 08:30 | PTCARENOTE ---
Assumed care. Patient in chair, feeling better, less pain with coughing, dry, non-productive cough. Lungs CTA,POX 96%. NSR HR 60-70's. Call conteh in reach
[2024-04-24] MEDS: ELIQUIS 5 MG PO ×2 (09:21→20:08)
--- NOTE | 2024-04-24 09:32 | W.PN.HOSP.TC ---
Today's Communication/Plan
-
colchicine
Assessment / Plan
Assessment / Plan
53-year-old male with history of mitral valve repair in January complicated by right pleural effusion requiring thoracentesis. He also had pericarditis. Patient presented with chest pain worse with lying flat. 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
CT of the chest 04/23/2024-tiny right pleural effusion slightly increased. Bilateral predominantly basilar's subsegmental atelectasis right greater than left. Tiny pericardial effusion slightly decreased. No pneumothorax or focal parenchymal
consolidation. Small hiatal hernia
Echo normal biventricular size and systolic function without regional wall motion abnormality. No pericardial effusion. Mitral valve repair with excellent result and no MR. EKG-sinus rhythm QTc 501
Cardiovascular system S1-S2 appreciated
Chest clear to auscultation
No pedal edema
# Chest pain suspect pericarditis
Elevated CRP
Patient was given a single dose of colchicine, with good results pain is Much better today
Cardiology planning to keep colchicine and slowly taper aspirin
Cardiology and cardiothoracic surgery consulted
# Persistent cough
Patient stated that he had testing as outpatient and was told he does not have asthma
Symptomatic treatment
Agree with Protonix
And [facility] patient does have seasonal allergies
Advised to use Flonase for postnasal drip
Add Pepcid at night given he is on Eliquis, aspirin
Pulm Consulted
# Paroxysmal atrial flutter/atrial Fib-continue Eliquis and amiodarone
# Severe mitral regurgitation status post mitral valve repair with mini thoracotomy 01/30/24
# History of right pleural effusion with thoracentesis with 600 mL serosanguineous fluid removed 03/07/2024
# Hyperlipidemia-continue Crestor
# Sleep apnea-due to get sleep study
# GERD-continue PPI. Pepcid added while on higher dose of aspirin
# H/O Nephrolithiasis
# DVT prophylaxis-continue Eliquis
# Full code
Discussed with at bedside
Anticipated Discharge: Within 24 hours
Subjective/Interval History
-
Date of Service: April 24, 2024
Objective Data
-
Labs:
Laboratory Results
04/24/24
04:05
WBC 8.0
Hgb 12.8 L
Hct 38.5 L
Plt Count 343
Sodium 142
Potassium 3.6
Chloride 103
Carbon Dioxide 23
BUN 17
Creatinine 0.9
Glucose 95
Calcium 9.1
Vital Signs:
Vital Signs
Temp Pulse Resp BP Pulse Ox
97.8 F 70 18 119/69 96
04/24/24 08:05 04/24/24 08:12 04/24/24 08:05 04/24/24 08:12 04/24/24 08:05
I&O
04/23/24 04/24/24 04/25/24
06:59 06:59 06:59
Intake Total 400 / 400
Balance 400 / 400
--- NOTE | 2024-04-24 10:34 | CON.PUL ---
Consultation
Consultation Request
Date/Time Consultation Requested: 04/23/2024 - 1823
Date/Time Consultation Performed: 04/24/2024927
Requesting Provider: DANYA Benito
Performing Provider: Will De Los Santos MD
Reason for Consultation: Cough/recurrent pleural effusions
Medical History
-
Chief Complaint: Chest pain + SOB
History of Present Illness:
53-year-old male with a past medical history of severe MR s/p radical mitral valve repair (01/30/2024) complicated by pleural effusions + pericarditis treated with outpatient colchicine, postoperative atrial flutter on amiodarone/Eliquis,
hyperlipidemia, asthma, hypertension, history of bradycardia, history of hayfever, insomnia, at high risk for TREVOR, kidney stones and depression who presents with chest pain + shortness of breath. As stated above, he was recently hospitalized on
03/07 - 03/09/2024 due to right-sided pleural effusion with right-sided pleurisy with suspected pericarditis and discharged home with a prednisone taper. Colchicine could not be used given his amiodarone use with drug�drug interactions with risk of
colchicine toxicity. He was discharged home in no acute distress. He now is coming in with chest pain in his sternal/epigastric region. Pain is more noticeable when laying flat and he still has a significant dry cough with shortness of breath.
No fevers, chills, DYER or recent sick contacts. In the ER he was afebrile to 97.5 �F, pulse rate 67, breathing at 16 breaths/min, BP 118/74 and saturating 99% on room air. Troponin was negative at <0.012 with CRP elevated at 151.7, WBC was WNL at
10.7, Hb 12.8, and COVID antigen is negative. CXR showed subtle haziness at the right lower lobe with subsequent CT chest showing nodular atelectasis in the lateral right middle lobe and a small right-sided pleural effusion, slightly worsened
compared to prior CTA chest from 04/01/2024. He was admitted to the IVU with cardiology and cardiothoracic surgery consulted. He was started on colchicine for suspected recurrent pericarditis. Due to his pleural effusion with shortness of breath
and cough, pulmonary service now consulted for additional management/recommendations.
When I saw the patient he was resting in bed in no acute distress, with Niki at bedside. Heart rate 65, BP 119/69 and he is on room air breathing comfortably saturating 96%. He says that after his last hospitalization his symptoms never
fully went away. The steroids were helping when he was on it. He did recently see cardiology on 04/19/[address] Dunn, and he continued to have pleuritic chest pain with concern for pericarditis versus thoracic wall inflammation. He was
started on high-dose aspirin with taper and omeprazole as well. He actually went to see us in the pulmonary office on 04/23 and the cold weather made his chest pain extremely severe and that is when he was told to go to the ER which was arranged for
him. He endorses a dry cough with no runny nose, nasal congestion or maxillofacial pain. He says that cold air, exertion and laying back to trigger his chest pain + cough. His cough does sometimes occur at rest. He does not have shortness of
breath and only becomes short of breath when his chest pain occurs. Chest pain described as a stabbing sensation in the upper belly/sternal area.
Of note, he recently saw us in the office prior to his radical mitral valve repair due to history of severe MR with multiple torn cords. He saw Dr. Medina on 01/18/2024 due to snoring with excessive daytime sleepiness and concern for sleep apnea. A
sleep study was going to be arranged. He also endorsed a chronic cough that has had for most of his life, and also admitted that he has a history of mild asthma but had no exertional complaints at that time and was not on any inhalers. FeNO was
checked which was low (16 ppb) and spirometry showed a mild restrictive lung defect (FVC: 76% predicted/3.29 L) at that time. He was told to follow-up with us in 3 months.
PMHx: History of severe MR with multiple torn cords s/p radical MV repair (01/30/2024), post-cardiac surgery pleural effusion + pericarditis (January 2024), hyperlipidemia, asthma, hypertension, history of bradycardia, chronic bronchitis, history of
hayfever, insomnia, high risk for TREVOR, history of frequent ear infections, kidney stones, osteoarthritis, depression
PSHx: Radical mitral valve repair with right minithoracotomy (01/30/2024)
Past Medical History
Past Medical History: Other (Above as per HPI)
Past Surgical History: Other (Above as per HPI)
Social History
Tobacco: Non-smoker
Alcohol: None
Drug: None
Personal:
Living: With Family
Family History
Family History: CAD (Mother), Diabetes (Father, aunt, grandfather + paternal grandfather) and Hypertension (Father)
Allergies / Home Medications
Allergies
Allergy/AdvReac Type Severity Reaction Status Date / Time
No Known Allergies Allergy Verified 04/01/24 02:41
Home Medications
�Medication �Instructions �Recorded �Confirmed �Last Taken �Type
aspirin 81 mg chewable tablet 81 mg PO .TAPER Blood Clot 12/21/23 04/23/24 04/22/24 History
(Richard Chewable Low Dose Aspirin) Prevention/Tx
cholecalciferol (vitamin D3) 50 50 mcg PO DAILY Supplement 12/21/23 04/23/24 04/22/24 History
mcg (2,000 unit) tablet (Vitamin
D3)
rosuvastatin 40 mg tablet 40 mg PO DAILY High Cholesterol 12/21/23 04/23/24 04/22/24 History
vitamin B12 500 mcg-folic acid 400 1 tab PO DAILY Supplement 12/21/23 04/23/24 04/22/24 History
mcg tablet
therapeutic multivitamin 1 tab PO DAILY Supplement 02/08/24 04/23/24 04/22/24 History
amiodarone 200 mg tablet 200 mg PO DAILY Arrhythmia 04/23/24 04/23/24 04/22/24 History
apixaban 5 mg tablet (Eliquis) 5 mg PO BID Blood Clot 04/23/24 04/23/24 04/22/24 History
Prevention/Tx
omeprazole 40 mg capsule,delayed 40 mg PO DAILY GI prophy during 04/23/24 04/23/24 04/22/24 History
release aspirin
Review of Systems
-
History Source: Patient
All other systems: Negative unless noted
Vitals / Labs / Diagnostic Testing
Vital Signs
Temp Pulse Resp BP Pulse Ox
97.8 F 70 18 119/69 96
04/24/24 08:05 04/24/24 08:12 04/24/24 08:05 04/24/24 08:12 04/24/24 08:05
Lab Data
04/24/24 04:05
04/24/24 04:05
Diagnostic Testing:
Physical Exam
-
HEENT: Normocephalic, Anicteric and Moist Mucous Membranes
Cardiovascular: S1/S2 and Peripheral Edema (negative)
Respiratory: Wheeze (negative), Rales (Bibasilar (R >L)), Rhonchi (negative) and Non-Labored Respirations
GI: Soft, Non Distended, Non Tender and Normal Bowel Sounds
Neurology: AO x 3 and Tremors (negative)
Skin: Warm and Dry
General: Respiratory Distress (negative), Comfortable, Fever (negative) and Chills (negative)
Assessment
-
Assessment: 53-year-old male with a past medical history of severe MR s/p radical mitral valve repair (01/30/2024) complicated by pleural effusions + pericarditis treated with outpatient colchicine, postoperative atrial flutter on
amiodarone/Eliquis, hyperlipidemia, asthma, hypertension, history of bradycardia, history of hayfever, insomnia, at high risk for TREVOR, kidney stones and depression who presents with chest pain + shortness of breath. As stated above, he was recently
hospitalized on 03/07 - 03/09/2024 due to right-sided pleural effusion with right-sided pleurisy with suspected pericarditis and discharged home with a prednisone taper. Colchicine could not be used given his amiodarone use with drug�drug
interactions with risk of colchicine toxicity. He was discharged home in no acute distress. He now is coming in with chest pain in his sternal/epigastric region. Pain is more noticeable when laying flat and he still has a significant dry cough
with shortness of breath. No fevers, chills, DYER or recent sick contacts. In the ER he was afebrile to 97.5 �F, pulse rate 67, breathing at 16 breaths/min, BP 118/74 and saturating 99% on room air. Troponin was negative at <0.012 with CRP elevated
at 151.7, WBC was WNL at 10.7, Hb 12.8, and COVID antigen is negative. CXR showed subtle haziness at the right lower lobe with subsequent CT chest showing nodular atelectasis in the lateral right middle lobe and a small right-sided pleural
effusion, slightly worsened compared to prior CTA chest from 04/01/2024. He was admitted to the IVU with cardiology and cardiothoracic surgery consulted. He was started on colchicine for suspected recurrent pericarditis. Due to his pleural
effusion with shortness of breath and cough, pulmonary service now consulted for additional management/recommendations.
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
chronic bronchitis, history of hayfever, insomnia, high risk for TREVOR, history of frequent ear infections, kidney stones, osteoarthritis, depression
Impression:
#Chest pain likely due to recurrent pleuropericarditis
#Recurrent unilateral small right-sided pleural effusion (slightly worsened compared to former CTA chest on 04/01/2024)
#Acute on chronic cough (likely due to pleurisy due to above, however other etiologies should be considered including cough variant asthma versus GERD versus upper airway cough syndrome)
#Anemia (baseline Hb 11.5-13g/dL)
#Hx of asthma (mild intermittent severity)
#Elevated ALP (206 on 04/23/24)
#History of severe MR with multiple torn cords s/p radical MV repair (01/30/2024) complicated by pleural effusions + pericarditis
History of kidney stones
#Depression
#History of bradycardia
#History of chronic bronchitis
Plan:
- Of note, he developed a moderate-sized right pleural effusion and small left-sided pleural effusion after his surgery on 01/30/2024 with adjacent atelectasis and right middle lobe nodular atelectasis - this was seen on CTA chest from 02/05/2024 and
he underwent thoracentesis on 02/06/2024 removing 600 cc of clear sincere-colored fluid (no fluid studies were sent)
- Also developed chest pain with suspected pleuropericarditis post-op --> Tx w/ colchicine
- His right middle lobe nodular atelectasis has improved but still persisted up until most recent imaging done this admission on 04/23/24
- His right-sided pleural effusion is only slightly larger compared to prior CTA chest on 04/01/2024, and is actually improved compared to prior CTA chest from 03/07/2024
- Given that his current CT chest that shows a small right sided pleural effusion with positional chest pain with markedly elevated CRP (151.7 on 04/23/24), this is highly suspicious for an inflammatory condition and not an infectious etiology; I did
recommend to seek evaluation as an outpatient with rheumatology for additional insight into his condition, and possibly for steroid-sparing agents
- Concern for pleuropericarditis --> continue with colchicine + high dose ASA; if pain not improved then would recommend initiating steroids with slow taper
- Previously colchicine was not used given drug-drug interactions with amiodarone with the risk for colchicine toxicity
- Monitor for nausea, vomiting and diarrhea
- Of note, this pleural effusion itself is tiny with lack of significant compressive atelectasis; the inflammatory etiology is what I believe to be the corrugated fastener driver of his symptoms
- No concern for fluid overload given low proBNP and no hallmark signs of CHF
- Cardiology following and recommendations are appreciated
- Pain control
- Antitussants with scheduled tessalon perles; he had his bring in Flonase and he will start this tonight as well, 2 puffs per nostril once daily
- prn nebulized bronchodilators - not currently bronchospastic
- May benefit from LABA/ICS --> I will start him on Symbicort 160mcg that should be used with a spacer; he should be DC'd home on this as well and we will continue to see him in the office
- Maintain SpO2 >90-94% with supplemental O2 as needed
- Incentive spirometer encouraged
- Replete electrolytes with K>4, Mg>2
- Maintain euglycemia with goal BG >100 and <180
- DVT ppx: Eliquis
Pulmonary service will continue to follow along while he remains hospitalized.
Data:
CT chest without contrast 04/23/24: Compared to prior CTA Chest from 04/01/2024
Tiny right pleural effusion, slightly increased. Bilateral predominantly bibasilar subsegmental atelectasis again identified, right greater than left.
Tiny pericardial effusion, slightly decreased.
No pneumothorax or focal parenchymal consolidation.
Small hiatal hernia.
Total time spent today was 57 minutes for this encounter. Time includes reviewing laboratory test/imaging results, reviewing pertinent medical records, obtaining and reviewing medical history, performing an appropriate exam, ordering medications,
tests and procedures. Time also includes documentation of this encounter, coordinating patient care and communicating with other healthcare professionals. Total time does not include separately billed tests performed on this date of service.
[2024-04-24] MEDS: ZYRTEC 10 MG PO (11:10)
[2024-04-24 11:15] VITALS: BP 106/72
--- NOTE | 2024-04-24 12:11 | CM ---
spoke with pt in room, he is prev indep, lives with his ex- in a 2 story home with 1 step to enter. he denies any dme's or dc planning needs. plan is for dc to home when medically stable.
--- NOTE | 2024-04-24 12:16 | CM ---
spoke to pt in room, he is prev indep, lives with his in a 1 story home with no steps to enter. she deies any dc planning needs or dme's. plan is for dc to home when medically stable.
[2024-04-24 15:16] VITALS: BP 136/79
[2024-04-24 20:07] VITALS: BP 113/73
[2024-04-24] MEDS: SYMBICORT 160/4.5 MCG INHALER 2 PUFF INH (20:08)
--- NOTE | 2024-04-24 23:00 | PTCARENOTE ---
Pt received at change of shift. VSS, NSR on tele with HR 60s. No complaints of pain at this time. Pt states cough is non productive and much less frequent than it has been. Ambulating independently in room without difficulty. Call conteh within
reach.
[2024-04-24] MEDS: PEPCID 20 MG PO (23:08)
[2024-04-24 23:11] VITALS: BP 124/83
[2024-04-25 05:39] VITALS: BP 110/73
[2024-04-25 05:50] VITALS: BMI 29.4
[2024-04-25 07:50] VITALS: BP 114/74
--- NOTE | 2024-04-25 07:50 | W.PN.CD ---
Today's Communication / Plan
-
- Repeat LFTs - involve GI if trending up.
- Continue ASA and Colchicine with taper as planned.
- ECHO is stable.
Impression / Plan
-
Chest pain
Pericarditis
-Worse laying flat, cold air exposure, and movement
-ECHO 04/23/24: No pericardial effusion with limited TTE
-EKG stable
-Chest x-ray without acute findings
-CRP 161 03/08/2024, down to 151 on 04/23/24
-Started on ASA taper tid, decreasing by 243 mg each week starting TuesdayApril 27, until back to 81 mg daily
- cont colchicine, 0.3mg daily for 3 months ending July 25 2024
-Significant improvement in symptoms. No more chest pain.
Severe mitral regurgitation S/P radial MV repair (01/30/2024)
-TTE 03/08/2024: Peak/mean gradient 6/3 mmHg without MR
-TTE 04/23/24: mean MV gradient is 2 mmHg
Abnormal alkaline phosphatase
-on AMiodarone
-ALP was elevated. AST, ALT in normal limits but were trending high.
- Repeat LFTs - Added on the am labs.
Paroxysmal atrial fibrillation/flutter
-In sinus on amiodarone
-ablation postponed until pericarditis resolution
-Oral Anticoagulation: Eliquis 5mg BID, he denies missed doses and abnormal bleeding
-[id number]: score 1 (HTN)
HTN, stable on medical therapy
Dyslipidemia, continue statin
Subjective: feeling much improved
Physical Exam
Vital Signs/Labs
Vital Signs
Temp Pulse Resp BP Pulse Ox
98.3 F 54 18 110/73 98
04/25/24 05:16 04/25/24 05:39 04/25/24 05:16 04/25/24 05:39 04/25/24 05:39
04/24/24 04/25/24 04/26/24
06:59 06:59 06:59
Actual Weight 82.9 kg 82.7 kg
04/24/24 04:05
04/24/24 04:05
PT 14.4 Sec (11.4-14.6) 04/23/24 09:45
INR 1.14 04/23/24 09:45
APTT 32.3 Sec (23.4-35.0) 04/23/24 09:45
04/23/24
10:10
[id number]-[id number] Pept 387
LAB Results
04/23/24 04/23/24
09:45 10:10
Troponin I Cancelled < 0.012
Physical Exam
Constitutional: No acute distress and Comfortable
EENT: Anicteric and Moist mucous membranes
Cardiovascular: Rhythm & rate is regular, Pedal edema is absent and JVD pressure is normal
Respiratory: Respiratory effort normal, Lungs clear to auscul., Wheeze Absent and Crackles Absent
GI: Soft, Non tender and Normal bowel sounds
Neuro/Psych: Alert, Oriented and AO x 3
Data Reviewed
-
Date of Service: April 25, 2024
Medical Decision Making: Reviewed Test Results and Independent Historian Assessment
EKG: Tracing Personally Visualized and interpreted
Echo: Report Reviewed by me
Labs: Labs Reviewed by me
Old Records: Reviewed
[2024-04-25] MEDS: SYMBICORT 160/4.5 MCG INHALER 2 PUFF INH (07:51)
[2024-04-25] MEDS: ASPIRIN 975 MG PO ×2 (08:08→15:27)
[2024-04-25] MEDS: CRESTOR 40 MG PO (08:08)
[2024-04-25] MEDS: PACERONE 200 MG PO (08:08)
[2024-04-25] MEDS: TESSALON PERLES 200 MG PO ×2 (08:08→15:27)
[2024-04-25] MEDS: VITAMIN D3 (cholecalciferol) 50 MCG PO (08:08)
[2024-04-25] MEDS: PROTONIX 40 MG PO (08:08)
[2024-04-25] MEDS: THERAGRAN 1 TABLET PO (08:09)
[2024-04-25] MEDS: FOLTX 1 TABLET PO (08:09)
[2024-04-25] MEDS: ELIQUIS 5 MG PO (08:09)
[2024-04-25] MEDS: ZYRTEC 10 MG PO (08:09)
[2024-04-25] MEDS: COLCHICINE 0.3 MG PO (08:09)
--- NOTE | 2024-04-25 09:27 | W.PN.PUL3 ---
Today's Communication / Plan
-
Colchicine + high dose ASA with taper
Symbicort 160mcg 2 puffs BID with spacer, which he should be discharged home on - rinsing mouth afterwards
Scheduled antitussants with satish levine, also rec'd to use honey
Rec'd outpatient eval by rheumatology
Outpatient follow-up with full PFTs with pre-/postbronchodilator testing, diffuse capacity and lung volumes
Patient has mild TREVOR via PSG in January 2024 and needs to continue following up with our office for continued PAP discussion/management
Patient is cleared for discharge home from pulmonary perspective. Defer final disposition to primary team + cardiology. We will continue to follow while he remains hospitalized otherwise we will see him in the office.
Assessment
-
Assessment: 53-year-old male with a past medical history of severe MR s/p radical mitral valve repair (01/30/2024) complicated by pleural effusions + pericarditis treated with outpatient colchicine, postoperative atrial flutter on
amiodarone/Eliquis, hyperlipidemia, asthma, hypertension, history of bradycardia, history of hayfever, insomnia, at high risk for TREVOR, kidney stones and depression who presents with chest pain + shortness of breath. As stated above, he was recently
hospitalized on 03/07 - 03/09/2024 due to right-sided pleural effusion with right-sided pleurisy with suspected pericarditis and discharged home with a prednisone taper. Colchicine could not be used given his amiodarone use with drug�drug
interactions with risk of colchicine toxicity. He was discharged home in no acute distress. He now is coming in with chest pain in his sternal/epigastric region. Pain is more noticeable when laying flat and he still has a significant dry cough
with shortness of breath. No fevers, chills, DYER or recent sick contacts. In the ER he was afebrile to 97.5 �F, pulse rate 67, breathing at 16 breaths/min, BP 118/74 and saturating 99% on room air. Troponin was negative at <0.012 with CRP elevated
at 151.7, WBC was WNL at 10.7, Hb 12.8, and COVID antigen is negative. CXR showed subtle haziness at the right lower lobe with subsequent CT chest showing nodular atelectasis in the lateral right middle lobe and a small right-sided pleural
effusion, slightly worsened compared to prior CTA chest from 04/01/2024. He was admitted to the IVU with cardiology and cardiothoracic surgery consulted. He was started on colchicine for suspected recurrent pericarditis. Due to his pleural
effusion with shortness of breath and cough, pulmonary service now consulted for additional management/recommendations.
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
chronic bronchitis, history of hayfever, insomnia, high risk for TREVOR, history of frequent ear infections, kidney stones, osteoarthritis, depression
Impression:
#Chest pain likely due to recurrent pleuropericarditis
#Recurrent unilateral small right-sided pleural effusion (slightly worsened compared to former CTA chest on 04/01/2024)
#Acute on chronic cough (likely due to pleurisy due to above, however other etiologies should be considered including cough variant asthma versus GERD versus upper airway cough syndrome)
#Anemia (baseline Hb 11.5-13g/dL)
#TREVOR (mild) not yet started on CPAP (overall AHI: 8.5 events/hr with adelina O2 saturation 88% via PSG on 01/26/2024)
#Hx of asthma (mild intermittent severity)
#Elevated ALP (206 on 04/23/24)
#History of severe MR with multiple torn cords s/p radical MV repair (01/30/2024) complicated by pleural effusions + pericarditis
#History of kidney stones
#Depression
#History of bradycardia
#History of chronic bronchitis
Plan:
- Of note, he developed a moderate-sized right pleural effusion and small left-sided pleural effusion after his surgery on 01/30/2024 with adjacent atelectasis and right middle lobe nodular atelectasis - this was seen on CTA chest from 02/05/2024 and
he underwent thoracentesis on 02/06/2024 removing 600 cc of clear sincere-colored fluid (no fluid studies were sent)
- Also developed chest pain with suspected pleuropericarditis post-op --> Tx w/ colchicine
- His right middle lobe nodular atelectasis has improved but still persisted up until most recent imaging done this admission on 04/23/24
- His right-sided pleural effusion is only slightly larger compared to prior CTA chest on 04/01/2024, and is actually improved compared to prior CTA chest from 03/07/2024
- Given that his current CT chest that shows a small right sided pleural effusion with positional chest pain with markedly elevated CRP (151.7 on 04/23/24), this is highly suspicious for an inflammatory condition and not an infectious etiology; I did
recommend to seek evaluation as an outpatient with rheumatology for additional insight into his condition, and possibly for steroid-sparing agents
- Concern for pleuropericarditis --> continue with colchicine + high dose ASA with planned taper; if pain not improved then would recommend initiating steroids with slow taper (no need for steroids at this juncture as his symptoms are improving)
- Previously colchicine was not used given drug-drug interactions with amiodarone with the risk for colchicine toxicity
- Monitor for nausea, vomiting and diarrhea
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
- No concern for fluid overload given low proBNP and no hallmark signs of CHF
- Cardiology following and recommendations are appreciated
- Pain control
- Antitussants with scheduled tessalon perles; he had his bring in Flonase and he was recommended to start this (2 puffs per nostril once daily)
- prn nebulized bronchodilators - not currently bronchospastic
- May benefit from LABA/ICS --> on 04/24 I started him on Symbicort 160mcg that should be used with a spacer; he should be DC'd home on this as well and we will continue to see him in the office --> I told him that this will take about 2-4 weeks to
peak in his lungs and to give it a trial of a month
- Maintain SpO2 >90-94% with supplemental O2 as needed
- Incentive spirometer encouraged
- Replete electrolytes with K>4, Mg>2
- Maintain euglycemia with goal BG >100 and <180
-Outpatient follow-up recommended to discuss his mild TREVOR
- DVT ppx: Eliquis
Patient is cleared for discharge home from pulmonary perspective. Defer final disposition to primary team + cardiology. We will continue to follow while he remains hospitalized otherwise we will see him in the office.
Data:
CT chest without contrast 04/23/24: Compared to prior CTA Chest from 04/01/2024
Tiny right pleural effusion, slightly increased. Bilateral predominantly bibasilar subsegmental atelectasis again identified, right greater than left.
Tiny pericardial effusion, slightly decreased.
No pneumothorax or focal parenchymal consolidation.
Small hiatal hernia.
Total time spent today was 37 minutes for this encounter. Time includes reviewing laboratory test/imaging results, reviewing pertinent medical records, obtaining and reviewing medical history, performing an appropriate exam, ordering medications,
tests and procedures. Time also includes documentation of this encounter, coordinating patient care and communicating with other healthcare professionals. Total time does not include separately billed tests performed on this date of service.
Subjective Data
-
Date of Service:
Date of Service: April 25, 2024
Chief Complaint: Pulmonary Follow Up
Subjective:
Patient was seen and evaluated today at bedside. Sitting in chair with at bedside. All questions were answered. Heart rate 70, BP 114/64, and saturating 96% on room air. He feels well, still having coughing fits but it is not worsening. He
is eager to go home. Denies DYER, abdominal pain, nausea, fevers or chills.
Review of Systems
General: Other (Negative unless mentioned above)
Objective Data
Data Reviewed
Vital Signs / I&O / Oxygen:
Vital Signs
Temp Pulse Resp BP Pulse Ox
97.9 F 67 20 114/74 96
04/25/24 07:52 04/25/24 08:00 04/25/24 07:54 04/25/24 07:50 04/25/24 08:30
Intake and Output
04/24/24 04/25/24 04/26/24
06:59 06:59 06:59
Intake Total 400 / 400
Balance 400 / 400
SaO2 96
Physical Exam
General: Respiratory Distress (negative), Comfortable, Chills (negative), Sweats (negative) and Good Appetite
HEENT: Normocephalic and Anicteric
Cardiovascular: S1-S2, Murmur (negative) and Peripheral Edema (negative)
Respiratory: Wheeze (negative), Crackles (Bibasilar (R>L)), Rhonchi (negative) and Non-Labored Respirations
GI: Soft, Non Distended, Non Tender and Normal Bowel Sounds
Neurology: AO x 3 and Tremors (negative)
Skin: Warm, Dry, Cyanosis (negative) and Jaundice (negative)
Labs/Micro/Reports
Lab Data
04/24/24 04:05
04/24/24 04:05
[2024-04-25 09:41] LABS: AST (SGOT) 30 U/L (17-59); Albumin 3.9 g/dl (3.5-5.0); Alkaline Phosphatase 196 U/L (38-126); Direct Bilirubin 0.2 mg/dl (0.0-0.4); Total Bilirubin 0.7 mg/dl (0.2-1.3); Total Protein 6.6 g/dl (6.3-8.2)
[2024-04-25 09:44] LABS: ALT (SGPT) 36 U/L (0-50)
--- NOTE | 2024-04-25 09:59 | W.PN.HOSP.TC ---
Addendum entered and electronically signed by Valdo Brizuela MD 04/25/24 15:16:
Discussed with cardiology Dr. Reyes and also with pulmonary Dr. De Los Santos. Both okay with discharging patient today.
More than 30 minutes spent in discharge including
Final examination of the patient
Summarizing hospital stay
Instructions for continuing care to all relevant caregivers
Preparation of discharge records, prescriptions, and referral forms
Total time spent (in minutes): 37 min
Addendum entered and electronically signed by Valdo Brizuela MD 04/25/24 10:17:
Elevated alkaline phosphatase could be secondary to minithoracotomy.
Original Note:
Today's Communication/Plan
-
Alkaline phosphatase is better than yesterday.
Await pulmonary evaluation today
Possible discharge if okay with pulmonary and cardiology.
Assessment / Plan
Assessment / Plan
53-year-old male with history of mitral valve repair in January complicated by right pleural effusion requiring thoracentesis. He also had pericarditis. Patient presented with chest pain worse with lying flat. 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
CT of the chest 04/23/2024-tiny right pleural effusion slightly increased. Bilateral predominantly basilar's subsegmental atelectasis right greater than left. Tiny pericardial effusion slightly decreased. No pneumothorax or focal parenchymal
consolidation. Small hiatal hernia
Echo normal biventricular size and systolic function without regional wall motion abnormality. No pericardial effusion. Mitral valve repair with excellent result and no MR. EKG-sinus rhythm QTc 502
Cardiovascular system S1-S2 appreciated
Chest clear to auscultation
No pedal edema
Chest pain almost gone. Cough persists
# Chest pain suspect pericarditis
Elevated CRP
Patient was given a single dose of colchicine, with good results pain is Much better today
Cardiology planning to keep colchicine and slowly taper aspirin
Cardiology and cardiothoracic surgery consulted
# Persistent cough
Patient stated that he had testing as outpatient and was told he does not have asthma ( Though previous documentation does state that he has mild intermittent asthma)
Symptomatic treatment
Agree with Protonix
And [facility] patient does have seasonal allergies
Asked to bring Flonase- he didn't use it last night. I advised to try it.
Advised to use Flonase for postnasal drip
Added Pepcid at night given he is on Eliquis, aspirin started patient on Symbicort
Pulm Consulted
# Slightly elevated alkaline phosphatase trending down
# Paroxysmal atrial flutter/atrial Fib-continue Eliquis and amiodarone
# Severe mitral regurgitation status post mitral valve repair with mini thoracotomy 01/30/24
# History of right pleural effusion with thoracentesis with 600 mL serosanguineous fluid removed 03/07/2024
# Hyperlipidemia-continue Crestor
# Sleep apnea-due to get sleep study
# GERD-continue PPI. Pepcid added while on higher dose of aspirin
# H/O Nephrolithiasis
# DVT prophylaxis-continue Eliquis
# Full code
Anticipated Discharge: Today
Subjective/Interval History
-
Date of Service: April 25, 2024
Objective Data
-
Labs:
Laboratory Results
04/24/24
04:05
Sodium 142
Potassium 3.6
Chloride 103
Carbon Dioxide 23
BUN 17
Creatinine 0.9
Glucose 95
Calcium 9.1
Total Bilirubin 0.7
AST 30
ALT 36
Alkaline Phosphatase 196 H
Vital Signs:
Vital Signs
Temp Pulse Resp BP Pulse Ox
97.9 F 67 20 114/74 96
04/25/24 07:52 04/25/24 08:00 04/25/24 07:54 04/25/24 07:50 04/25/24 08:30
I&O
04/24/24 04/25/24 04/26/24
06:59 06:59 06:59
Intake Total 400 / 400
Balance 400 / 400
--- NOTE | 2024-04-25 11:47 | CM ---
CM following for DC planning needs.
Reviewed initial assessment. Pt. resides w/ spouse in a private, 1 story home. He is functionally indep. at baseline w/ ADLs, mobility without the use of any assisted device.
Anticipated DC plan is for home without needs.
Will remain available for any needs that may arise.
[2024-04-25 12:39] VITALS: BP 117/82
--- NOTE | 2024-04-25 15:16 | W.DS.TRANS ---
Addendum entered and electronically signed by Valdo Brizuela MD 04/25/24 17:09:
Dictation- [id number]
Original Note:
DC Summary - Residential Living Assistant
-
Discharge Instructions:
Discharge Diagnosis/Procedures Pleuropericarditis
Cough
Paroxysmal atrial fibrillation/flutter
Mitral valve repair with minithoracotomy
2023
History of right pleural effusion with
thoracentesis 03/07/2024
Hyperlipidemia
GERD
Diet 2 Gram Sodium
Activity As tolerated
Driving Restrictions As prior to admission
Others Tests Chest x-ray 4 weeks. Thyroid function test 3
months.
full PFTs with pre-/postbronchodilator testing,
diffuse capacity and lung volumes
Instructions:
Stand-Alone Forms:
Changes to Home Medications: Yes
Discharge Medications:
DC Medications w/original date entered in [employer]
aspirin 81 mg chewable tablet (Richard Chewable Low Dose Aspirin) 81 mg PO .TAPER Blood Clot Prevention/Tx 12/21/23
cholecalciferol (vitamin D3) 50 mcg (2,000 unit) tablet (Vitamin D3) 50 mcg PO DAILY Supplement 12/21/23
rosuvastatin 40 mg tablet 40 mg PO DAILY High Cholesterol 12/21/23
vitamin B12 500 mcg-folic acid 400 mcg tablet 1 tab PO DAILY Supplement 12/21/23
therapeutic multivitamin 1 tab PO DAILY Supplement 02/08/24
amiodarone 200 mg tablet 200 mg PO DAILY Arrhythmia 04/23/24
apixaban 5 mg tablet (Eliquis) 5 mg PO BID Blood Clot Prevention/Tx 04/23/24
omeprazole 40 mg capsule,delayed release 40 mg PO DAILY GI prophy during aspirin 04/23/24
benzonatate 100 mg capsule 200 mg (2 x 100 mg) PO TID Cough #90 caps 04/25/24
budesonide-formoterol HFA 160 mcg-4.5 mcg/actuation aerosol inhaler (Symbicort) 2 puff inhalation R BID Lung/breathing issues #10.2 grams 04/25/24
cetirizine 10 mg tablet 10 mg PO DAILY Cough #30 tabs 04/25/24
colchicine 0.6 mg tablet 0.3 mg (1/2 x 0.6 mg) PO DAILY pericarditis #30 tabs 04/25/24
famotidine 20 mg tablet 20 mg PO HS Gastrointestinal issue #30 tabs 04/25/24
fluticasone propionate 50 mcg/actuation nasal spray,suspension (Flonase Allergy Relief) 2 spray intranasal HS Cough #16 grams 04/25/24
Home Medication Changes
Colchicine, famotidine, Flonase, cetirizine, Symbicort, benzonatate are new
Pending Results: No
[2024-04-25 15:27] VITALS: BP 131/79
--- NOTE | 2024-04-25 16:13 | PTCARENOTE ---
Discharged to home. Discharge instructions reviewed w/ pt. Verbalizes understanding. IV and tele removed. Escorted via wheelchair and staff assist.
== END 2024-04-25 16:14 | disposition home or self-care (01) | DRG 315 ==
LOC: IVU 16:00
PROVIDERS: Emergency Medicine; Nurse Practitioner; Physician Assistant Medical; Registered Nurse; ADMITTING PHYSICIAN Hospitalist; ATTENDING PHYSICIAN Hospitalist; CONSULT PHYSICIAN Internal Medicine Cardiovascular Disease; CONSULT PHYSICIAN Internal Medicine Critical Care Medicine; CONSULT PHYSICIAN Thoracic Surgery (Cardiothoracic Vascular Surgery); EMERGENCY PHYSICIAN Emergency Medicine; FAMILY PHYSICIAN Family Medicine
DX: I31.9 Disease of pericardium, unspecified (principal); I48.92 Unspecified atrial flutter; J90 Pleural effusion, not elsewhere classified; J98.11 Atelectasis; Z79.01 Long term (current) use of anticoagulants; I48.0 Paroxysmal atrial fibrillation; K21.9 Gastro-esophageal reflux disease without esophagitis; Z11.52 Encounter for screening for COVID-19
CPT/HCPCS: 93308; 71046; 71250; 80048; 80053; 82248; 83880; 84484; 85025; 85027; 85610; 85730; 86140; 87811; 93005; 94640; 99285

== ENCOUNTER → 2024-05-22 13:35 | Outpatient (REF) | payer BC, SELFPAY | LOC: RAD 13:35 | PROVIDERS: ATTENDING PHYSICIAN Nurse Practitioner Family | DX: R07.81 Pleurodynia (principal) | CPT/HCPCS: 71046 ==

== ENCOUNTER 2024-07-10 05:53 | Day surgery (SDC) | payer BC, SELFPAY ==
[2024-07-06 09:36] VITALS: BMI 32.3
[2024-07-06 10:09] LABS: % Basophils 1.4 % (0-2); % Eosinophils 1.8 % (0-6); % Immature Granulocytes 0.4 % (0-0.5); % Lymphocytes 23.8 % (20.5-51.1); % Monocytes 5.8 % (1.7-9.3); % Neutrophils 66.8 % (42.2-75.2); Absolute Basophils 0.1 10^3/uL (0-0.2); Absolute Eosinophils 0.1 10^3/uL (0-0.7); Absolute Lymphocytes 1.7 10^3/uL (1.2-3.4); Absolute Monocytes 0.4 10^3/uL (0.1-0.6); Absolute Neutrophils 4.8 10^3/uL (1.4-6.5); Hematocrit 44.3 % (39.0-52.0); Hemoglobin 14.7 g/dL (13.0-18.0); Mean Corp Hgb Conc. 33.2 g/dL (33.0-37.0); Mean Corpuscular Hgb 30.8 pg (27.0-31.0); Mean Corpuscular Volume 92.7 fL (80.0-94.0); Mean Platelet Volume 8.5 fL (7.4-10.4); Nucleated Red Blood Cells % 0 % (-); Platelet Count 262 10^3/uL (130-400); Red Blood Cell Count 4.78 10^6/uL (4.70-6.10); Red Cell Dist. Width 14.9 % (11.5-14.5); White Blood Cell Count 7.2 10^3/uL (4.8-10.8)
[2024-07-06 10:31] LABS: ALT (SGPT) 39 U/L (0-50); AST (SGOT) 32 U/L (17-59); Albumin 4.4 g/dl (3.5-5.0); Alkaline Phosphatase 84 U/L (38-126); Blood Urea Nitrogen 18 mg/dl (9-20); Calcium 9.2 mg/dl (8.4-10.2); Carbon Dioxide 26 mmol/L (22-30); Chloride 104 mmol/L (98-107); Estimated Creatinine Clearance 82 ml/min; Glucose 99 mg/dl (70-99); Potassium 4.5 mmol/L (3.5-5.1); Sodium 140 mmol/L (135-145); Total Bilirubin 0.8 mg/dl (0.2-1.3); Total Protein 7.2 g/dl (6.3-8.2); eGFR > 60.00
[2024-07-10] VITALS (17 sets, daily range): BP systolic 100–140; BP diastolic 71–98; BMI 31.5
--- NOTE | 2024-07-10 11:04 | ITS.CL.ABL ---
Business Functional Analyst - Ablation
Ablation
Procedure Report:
AFIB / A flutter ablation:
Mr. Koo is a very pleasant 53 yr old gentleman with medical history significant for symptomatic paroxysmal atrial fibrillation and atrial flutter is here in the EP lab for atrial fibrillation / flutter ablation
Date of Procedure:
07/10/2024
Indications:
Symptomatic paroxysmal atrial fibrillation / atrial flutter
Pre-Operative Diagnosis:
Paroxysmal atrial fibrillation / atrial flutter
Post-Operative Diagnosis:
Paroxysmal atrial fibrillation / atrial flutter
Procedure Performed:
Atrial fibrillation ablation with wide area circumferential ablation (WACA) approach for pulmonary vein isolation
Right atrial flutter with lateral wall cannulation reentry
Atrial flutter ablation with cavo-tricuspid isthmus line block formation
Performing Physician:
Savannah Reyes MD
Assistants:
EP staff
Anesthesia:
See anesthesia records
Detailed Description of the Procedure:
Written informed consent was obtained from the patient after a full explanation of the risks and benefits of the procedure including the risks of sedation and anesthesia.
The patient was brought to the electrophysiology laboratory in stable condition in fasting state. Continuous electrocardiographic and hemodynamic monitoring was initiated.
The initial rhythm was normal sinus rhythm.
The procedure site was meticulously prepared with surgical scrub and allowed to dry with no pooling. Sterile draping was applied to cover the procedure site. The image intensifier was draped with sterile bag and positioned over the patient. After
infusion of local anesthetic, vascular access was obtained under ultrasound guidance and sheaths were placed over guide wire as detailed below.
The images of the ultrasound of the femoral vessels were stored in patient chart.
Sheath and Catheter Placement:
In the right femoral vein, an 8-Prydeinig sheath was placed under ultrasound guidance for use during the ablation procedure. And mapping catheter was intermittently placed in the high right atrium, right ventricle, left atrium and left ventricle. In
the left femoral vein, a 9-Fr long sheath was placed for use during intracardiac echo procedure.
The sheaths were upgraded as needed during the case. Intracardiac catheters were positioned using direct fluoroscopic guidance.� ICE catheter was placed in RA. The following catheters / sheaths were placed
Sheaths:
��������� Agilis sheath in right femoral vein upgraded from 8Fr in right femoral vein
��������� 9Fr in left femoral vein
��������� 7Fr in right femoral vein
Catheters:
��������� The Affera Sphere 9 catheter -bidirectional D/F� - at locations of HRA, RV, LA and LV.
��������� ICE catheter -AccuNav -� at locations of RA, SVC, and RV.
��������� Bard decapolar catheter � RA and CS
Heparin was initiated after the access was obtained.
Intracardiac ECHO:
An 8-Prydeinig AcuNav intracardiac ECHO (ICE) probe was advanced through the 9-Prydeinig sheath in the left femoral vein into the right atrium under fluoroscopic and ICE ultrasound image guidance and a baseline ECHO study was performed. The left atrial
size was normal. There was trace tricuspid regurgitation. The aortic valve was grossly normal. There was normal left ventricular size and function. There is a trace pericardial effusion. The HAZEL has normal velocities. The pulmonary had good flow
identified.
During the procedure, ICE was used for monitoring of complications, guidance of trans-septal puncture, monitor the catheter position and tracking ablation lesions. No change in the pericardial space noted throughout the procedure.
Trans-septal Puncture:
Heparin was initiated and infused to maintain appropriate ACT. A J-tipped guidewire was advanced through into the superior vena cava under fluoroscopic and ICE guidance. The Agilis sheath was advanced into the superior vena cava. An AcQCQlika
transseptal access system was utilized to perform the trans-septal puncture. The apparatus was withdrawn until it was in contact with the fossa ovalis. The position was adjusted based on fluoroscopy and ultrasound images from ICE. Under
fluoroscopic, hemodynamic and ICE ultrasound guidance, left atrium was cannulated by advancing the needle. Once atrial septum was cannulated, the needle was pulled back and the guide wire was advanced through the needle into the left atrium. The
guide wire was advanced into the left superior pulmonary vein. Both the sheath and the dilator was advanced into the left atrium. The dilator with the needle was withdrawn. Blood was aspirated from the Agilis sheath and arterial blood confirmed. The
sheath was flushed. Saline injection noted into the left atrium on ICE. The waveform of the LA pressure was recorded. The mapping catheter was advanced in the Agilis sheath into the left pulmonary vein.
Of note, the cardiac chambers were rotated making the TSSP quite challenging.
3D Electroanatomic Mapping:
Using the Sphere 9 Affera catheter advanced through Agilis sheath into the left atrium, an electroanatomic map (EAM) of the left atrium was created using [employer] mapping system with [employer]-1 software. The map was used for localization of catheter
position and tacking of ablation lesions. The EAM of the left atrium showed a total of 4 PVs with two left and the two right sided pulmonary veins with all electrically connected to the body the LA. It showed healthy myocardium and no significant
scar on the posterior wall of the LA. There was a small area of scar noted on the anterior wall where surgical incision was likely made. The LA was normal in size.
Following the EAM, preparation were made for ablation.
Ablation:
Ablation # 2: Pulmonary vein Isolation:
Pulsed field ablation was performed using an open irrigation, bidirectional, contact sensing, dual energy ablation catheter (Affera sphere -9) by completing the circumferential lesions around the left and right pulmonary veins achieving pulmonary
vein isolation.
Confirmation of the PVI and bidirectional block:
Following achievement of entrance block at the pulmonary veins, pacing from the Sphere 9 affera catheter in each of the four veins at 20 milliamps for 4 milliseconds showed entrance and exit block.
EP study and Confirmation of the PVI and bidirectional block:
Following achievement of entrance block at the pulmonary veins, pacing from the pentaray catheter in HAZEL and the pentaray in each of the four veins at 10 milliamps for 2 milliseconds showed entrance and exit block. All PVI were rechecked at the end
of the case and remained isolated with dissociated and local capture with pacing. Entrance and exit block were demonstrated in all veins.
The LA was mapped with The [employer] mapping system with Prism-1 software in sinus rhythm confirming the line of block at the ablation lesions lines.
The arrhythmia induction was attempted with pacing maneuvers. Atrial flutter was initiated.
The flutter was mapped in the left atrium and it showed only passive conduction in the LA and coming from the atrial septum with most of the CL missing in the LA.
�
Electroanatomic mapping of the right atrium:
The Affera catheter with Agilis sheath was pulled out of the LA into the RA.
Using the Sphere 9 Affera catheter advanced through Agilis sheath into the right atrium, an electroanatomic map (EAM) of the right atrium was created using the [employer] mapping system with [employer] software mapping system.
The flutter was mapped and was noted concentric in the CS. The RA was mapped in atrial flutter that showed lateral wall scar with scar dependent slowing of the electrical activity to sustain the atrial flutter.
The Flutter changed to typical counter clock matthews CTI dependent atrial flutter.
The flutter kept on changing from lateral wall to CTI dependent flutter.
Ablation # 2: Lateral wall right atrial flutter ablation:
The scar where the atriotomy was done and cannulation for the bypass was done was responsible for the lateral wall flutter.
The critical isthmus was noted on the lateral wall and sphere catheter ws able to bump terminate it at that location.
Pulsed field ablation was performed using an open irrigation, bidirectional, contact sensing, dual energy ablation catheter ([employer] sphere -9) connecting the lateral scar to the critical isthmus and joining it to the CTI isthmus at the IVC location
to create a line of block.
Ablation # 3: Typical Atrial Flutter Ablation:
The CTI ablation was done using radiofrequency with Affera sphere -9 ablation, open irrigation, force-sensing bidirectional ablation catheter in the cavotricuspid isthmus from the tricuspid annulus to the IVC ridge. �Once the ablation catheter reach
near the IVC, the ablation energy was changed to pulsefield.
��������������� -Bidirectional block was confirmed across the CTI line with differential pacing.
��������������� -Double potentials were spaced greater than 102 msec apart.
��������������� -The conduction time across the CTI line from proximal CS pacing was 164 msec.
��������������� -EAM of the right atrium was obtained with coronary sinus pacing and showed a line of block at the CTI.
��������������� -The time interval just lateral to the ablation lesions was 164 msec and the lateral wall was 112 msec
��������������� - All these maneuvers confirmed the block at the CTI line.
- Post ablation HV interval was unchanged at 45msec
Sinus Node Function: The sinus node functions are within acceptable normal range.
The AV shelley functions are deemed within normal range.
Arrhythmia Induction:
No sustained arrhythmia was induced at the end of the study.�
Procedure End
ICE study was done again that showed no epicardial accumulation. No complications noted.
Following the completion of the EP study, catheters were removed. Protamine 40 mg was given at the end of the procedure and ACT was checked repeatedly. The sheaths were removed and hemostasis achieved with �Figure of 8� suture and manual compression
after acceptable ACT is achieved.
Left atrial Pressure:
Pre-Procedure: Mean LA pressure was 9mmHg
Post-Procedure: Mean LA pressure was 10mmHg
Post-Procedure: Mean RA pressure was 7mmHg
Estimated Blood loss:
<10 cc
Specimens Removed:
None.
Implants / Devices:
None
Urine output:
None
Packs / Drains/ Tubes:
None
Instrument / Sponge Count Correct:
Yes
Complications of the Procedure:
None
Condition of Patient at Time of Transfer:
Hemodynamically stable with no neurological or vascular compromise.
Summary:
��������� Successful atrial fibrillation ablation with circumferential bidirectional line of block at pulmonary venin antra (Pulmonary vein isolation), atrial flutter ablation with lateral right atrial wall ablation, cavo-tricuspid isthmus line
block formation
Figures from the Procedure:
Figure 1: The electroanatomic mapping (EAM) of the left atrium with bipolar voltage (purple indicates normal electrical activity with red as no myocardial muscle electric activity indicating a line of block or scar.
CTI and lateral wall flutter
[2024-07-10] MEDS: ANESTHETIC LOZENGE 1 LOZENGE PO (11:56)
--- NOTE | 2024-07-10 15:25 | W.PN.UPDATE ---
Update Note
Progress Note Update
53 yo WM s/p PVI, CTI flutter ablation (same day). He has very sore throat, denies cp, sob, pallavi diet, voiding, amb w/o dizziness, EKG SR, R fem site c/d/i no HT, soft. He will resume Eliquis tonight and continue amiodarone. Activity restrictions
reviewed. He will f/u CRITICAL CARE TRANSPORT NURSE in 2 weeks. He is for dc/ home after 3pm.
[2024-07-11 12:42] LABS: ACT-LR - POC 298 Seconds (116-155)
[2024-07-11 12:42] LABS: ACT-LR - POC 285 Seconds (116-155)
[2024-07-11 12:42] LABS: ACT-LR - POC 332 Seconds (116-155)
[2024-07-11 12:42] LABS: ACT-LR - POC 310 Seconds (116-155)
[2024-07-11 12:42] LABS: ACT-LR - POC 329 Seconds (116-155)
== END 2024-07-10 15:10 | disposition home or self-care (01) ==
LOC: CATH 05:53
PROVIDERS: ATTENDING PHYSICIAN Internal Medicine Cardiovascular Disease; FAMILY PHYSICIAN Nurse Practitioner Family; OTHER PHYSICIAN Internal Medicine Cardiovascular Disease
DX: I48.0 Paroxysmal atrial fibrillation (principal); I48.92 Unspecified atrial flutter; Z79.01 Long term (current) use of anticoagulants; Z79.82 Long term (current) use of aspirin; Z79.899 Other long term (current) drug therapy; I10 Essential (primary) hypertension; E78.5 Hyperlipidemia, unspecified
CPT/HCPCS: C1769; C1894; C1730; C1766; C1892; C1759; C1733; 36415; 80053; 85025; 85347; 86850; 86900; 86901; 93005; 93655; 93656

== ENCOUNTER 2024-07-16 07:20 | Emergency (ER) | payer BC, SELFPAY ==
[2024-07-16 07:38] VITALS: BP 138/91
[2024-07-16 08:23] VITALS: BMI 32.9
--- NOTE | 2024-07-16 08:24 | ED.GENMED ---
History of Present Illness
<Angle Headley MD, Resident - Last Filed: 07/16/24 12:33>
General
Chief Complaint: Chest Pain
Source: patient
Exam Limitations: none
Time Seen by Provider: 07/16/24 08:15
Nursing documentation reviewed up to this point in time: agreed with
History of Present Illness
History of Present Illness:
53yo M with [facility] afib s/p ablation 07/10/24, HTN, HLD, pericarditis/pleural effusion, who presents from home to ED for evaluation of chest pain after talking to his client evaluator this AM. He describes chest tightness and pain that is constant, rated
4/10 on pain scale with 'spikes' up to 7/10, and located in the center of his chest. This started a week ago following his ablation, but has been getting gradually worse each day. Exacerbated by changing positions (sitting or standing), no
association with walking or rest, no alleviating factors. He initially thought it was heartburn and took tums with no relief. It interferes with restful sleep. He has never had this type of pain before, feels different than previous pericarditis. He
also reports nonproductive cough which started a week ago, initially thought to be due to intubation; now reports coughing fits lasting 15 minutes, occurring 7-8 times per day. He had a sore throat which resolved yesterday. Denies shortness of
breath, hemoptysis, sputum production.
Past History
<nAgle Headley MD, Resident - Last Filed: 07/16/24 12:33>
Past History
ED Past Medical History: Arrthythmia (afib), GERD, HTN, Valvular disease and Other (Kidney stones)
ED Past Surgical History: Cardiac (mitral valve repair 01/2024, afib ablation 07/10/24)
Patient has exhibited threatening behavior?: No
Social History
Tobacco: Non-smoker
Alcohol: Occasional
Drug: None
Personal:
Living: with family
Employment: Employed
Family History
Family History: Diabetes, Hypertension and CAD
Review of Systems
<Angle Headley MD, Resident - Last Filed: 07/16/24 12:33>
Review of Systems
Constitutional: Reports no symptoms; Denies fever or chills
EENT: Reports no symptoms
Respiratory: Reports cough (see HPI); Denies hemoptysis or trouble breathing
Cardiac: Reports chest pain (see HPI); Denies diaphoresis, palpitations or syncope
ABD/GI: Reports no symptoms; Denies abdominal pain, nausea, vomiting, diarrhea, constipated, bloody stools or black stools
: Reports no symptoms; Denies dysuria or difficulty voiding
Musculoskeletal: Reports no symptoms
Skin: Reports no symptoms
Neurological: Reports no symptoms
Endocrine: Reports no symptoms
Hematologic/Lymphatic: Reports no symptoms
Psychiatric: Reports no symptoms
Phy Exam
<Angle Headley MD, Resident - Last Filed: 07/16/24 12:33>
Physical Exam
Physical Exam:
chest wall with no obvious trauma, ecchymosis
reproducible chest wall tenderness
General Physical Exam
General Presentation: well appearing and no apparent distress
General age: appears stated age
General Skin: warm and dry
General Habitus: normal
General Mental: alert
General Hydration: appears well hydrated
Cardiovascular Exam
Cardiovascular Exam: regular rate/rhythm and no edema
Pulmonary Exam
Pulmonary Exam: no respiratory distress and no cough
Oxygen Status: room air
Gastrointestinal Exam
Gastrointestinal Exam: non tender, soft and non distended
Musculoskeletal Exam
Musculoskeletal Exam: no edema and other (nontender calves, harinder sign negative)
Psychiatric Exam
Psychiatric Exam: normal mood/affect
Scores
<Angle Headley MD, Resident - Last Filed: 07/16/24 12:33>
Heart Score for Chest Pain Patients
STEMI patient?: Not applicable
Course
<Angle Headley MD, Resident - Last Filed: 07/16/24 12:33>
Orders/Labs/Results
Orders:
Orders
07/16/24 07:35
EKG [Electrocardiogram (*1)] Urgent
Reason for Study: Chest Pain
EKG- Treatment ONCE
07/16/24 08:38
Basic Metabolic Panel Urgent
Complete Blood Count/With Diff Urgent
Troponin I Urgent
07/16/24 08:46
Echo Follow up Study W Dop Urgent
Reason for Study: CP s/p ablation
Ketorolac [Toradol] 15 mg IV NOW STA
CR Chest - 2 Views Urgent
Comment:
Reason For Exam: chest pain
07/16/24 08:48
CARDIOLOGY CONSULT Urgent
Consulting Provider: Farzad Agee
Was physician already notified: Yes
07/16/24 11:18
Troponin I Urgent
Abnormal Lab Results
07/16/24 07/16/24
08:38 11:18
WBC 12.4 H 10^3/uL
(4.8-10.8)
RDW 15.3 H %
(11.5-14.5)
Abs Immat Gran (auto) 0.1 H 10^3/uL
(0-0.05)
Absolute Neuts (auto) 9.2 H 10^3/uL
(1.4-6.5)
Absolute Monos (auto) 1.1 H 10^3/uL
(0.1-0.6)
Lymphocytes % 14.6 L %
(20.5-51.1)
Glucose 110 H mg/dl
(70-99)
Troponin I 0.074 H* ng/ml 0.071 H* ng/ml
07/16/24 08:38
07/16/24 08:38
Vital Signs
Initial and Last Documented VS:
Initial Vital Signs
Temp Pulse Resp BP Pulse Ox
99.5 F 91 16 138/91 97
07/16/24 07:38 07/16/24 07:38 07/16/24 07:38 07/16/24 07:38 07/16/24 07:38
Last Documented Vital Signs
Temp Pulse Resp BP Pulse Ox
99.5 F 76 16 125/75 97
07/16/24 07:38 07/16/24 11:45 07/16/24 11:45 07/16/24 11:00 07/16/24 11:45
<Waldemar Arzate, DO - Last Filed: 07/16/24 08:51>
Orders/Labs/Results
Orders:
Orders
07/16/24 07:35
EKG [Electrocardiogram (*1)] Urgent
Reason for Study: Chest Pain
EKG- Treatment ONCE
07/16/24 08:38
Basic Metabolic Panel Urgent
Complete Blood Count/With Diff Urgent
Troponin I Urgent
07/16/24 08:46
Echo Follow up Study W Dop Urgent
Reason for Study: CP s/p ablation
Ketorolac [Toradol] 15 mg IV NOW STA
CR Chest - 2 Views Urgent
Comment:
Reason For Exam: chest pain
07/16/24 08:48
CARDIOLOGY CONSULT Urgent
Consulting Provider: Farzad Agee
Was physician already notified: Yes
07/16/24 11:18
Troponin I Urgent
Abnormal Lab Results
07/16/24 07/16/24
08:38 11:18
WBC 12.4 H 10^3/uL
(4.8-10.8)
RDW 15.3 H %
(11.5-14.5)
Abs Immat Gran (auto) 0.1 H 10^3/uL
(0-0.05)
Absolute Neuts (auto) 9.2 H 10^3/uL
(1.4-6.5)
Absolute Monos (auto) 1.1 H 10^3/uL
(0.1-0.6)
Lymphocytes % 14.6 L %
(20.5-51.1)
Glucose 110 H mg/dl
(70-99)
Troponin I 0.074 H* ng/ml 0.071 H* ng/ml
07/16/24 08:38
07/16/24 08:38
Vital Signs
Initial and Last Documented VS:
Initial Vital Signs
Temp Pulse Resp BP Pulse Ox
99.5 F 91 16 138/91 97
07/16/24 07:38 07/16/24 07:38 07/16/24 07:38 07/16/24 07:38 07/16/24 07:38
Last Documented Vital Signs
Temp Pulse Resp BP Pulse Ox
99.5 F 76 16 125/75 97
07/16/24 07:38 07/16/24 11:45 07/16/24 11:45 07/16/24 11:00 07/16/24 11:45
<Angle Headley MD, Resident - Last Filed: 07/16/24 12:33>
MDM/Problems Addressed
Differential Diagnosis Includes:
costochondritis, pericarditis, ACS, GERD, esophageal spasm
MDM/Problems Addressed:
53yo M with PMH afib s/p ablation 07/10/24, HTN, HLD, pericarditis/pleural effusion presenting to ED for chest pain
Given that pain is reproducible on physical exam, suspect component of costochondritis. Will give toradol and monitor.
However, given cardiac history will need to rule out additional pathology. Will obtain chest xray, echocardiogram.
ACS is less likely and anticipate his troponin would be elevated s/p recent ablation.
Will discuss with cardiology.
<Angle Headley MD, Resident - Last Filed: 07/16/24 12:33>
*Critical Care Note
Total Time (30-74mins, 75-104mins- exclusive of procedures): Not Applicable
<Angle Headley MD, Resident - Last Filed: 07/16/24 12:33>
Update Note
Update Note:
Troponin elevated 0.074-- as anticipated given recent cardiac ablation. Will repeat in 3 hours to trend. Mild leukocytosis noted, possibly reactive.
11:10-- Patient reports pain is improved after toradol though still present. Chest xray showed no acute cardiopulm abnormality-- no pleural effusion, no pneumothorax, normal cardiac silhouette. Echo report reviewed, no significant change from echo
04/23/24-- LV EF 55%, normal LV and RV size and function, no mitral regurg s/p MVrepair, normal pericardium without effusion. Await repeat troponin and cardiology recommendations.
12:15-- Troponin downtrended to 0.071. Reassured by downtrending troponin and improvement in pain with toradol that this is not ACS. Dr Arzate previously discussed with cardiology regarding plan for discharge. Will discharge home, patient to
continue his outpatient medications. Reviewed return to ED precautions. Discussed above with patient-- he is understanding and agreeable with plan. He is aware of his cardiology appointment scheduled for next week.
ED Attending Note
<Angle Headley MD, Resident - Last Filed: 07/16/24 12:33>
-
Portions of this chart may have been created with voice recognition software.� Occasional wrong word or��sound alike� substitutions may have occurred due to the inherent limitations of voice recognition software.
<Waldemar Arzate, DO - Last Filed: 07/16/24 08:51>
ED Attending Note
Patient seen and examined by attending physician: Yes
I performed a history and physical exam of patient and discussed management with resident, I reviewed resident's note and agree with documented findings and plan of care.: Yes
ED Attending Note:
I have seen and evaluated the patient with a [id number] encounter. I have spoken to the resident and involved in the medical history, the physical exam, medical decision making.
Evaluation and management service: agree unless noted differently below.
Results interpretation: agree unless noted differently below.
Focused HPI: 53-year-old male presenting for constant chest pain over the past 6 days ever since he had cardiac ablation for A-fib. He states he and the client evaluator assumed this was normal pain after the ablation but symptoms are not improving.
He called the client evaluator on-call overnight and was sent in for cardiology consult and echo. Symptoms are not worse with position or food intake
Physical exam: Mildly uncomfortable. Tenderness to palpation of sternum. No skin changes. Heart regular rate and rhythm
Medical Decision Making: Will give dose of Toradol. Will obtain chest x-ray and will obtain bedside echo
Discharge Plan
Departure
Patient Disposition: Home (Routine Discharge)
Date of Disposition: 07/16/24
Time of Disposition: 12:17
Patient with high blood pressure during this ER visit?: Yes
Discharge Problem:
Chest pain
Instructions: Chest pain in adults - ED discharge instructions, BLOOD PRESSURE
Prescriptions:
No Action
aspirin [Richard Chewable Aspirin] 81 mg Tablet,Chewable
81 mg PO DAILY
rosuvastatin 40 mg Tablet
40 mg PO DAILY
cholecalciferol (vitamin D3) [Vitamin D3] 50 mcg (2,000 unit) Tablet
50 mcg PO DAILY
vitamin [id number] acid 500-400 mcg Tablet
1 tab PO DAILY
therapeutic multivitamin Tablet
1 tab PO DAILY
amiodarone 200 mg tablet
200 mg PO DAILY
Eliquis 5 mg tablet
5 mg PO BID
colchicine 0.6 mg Tablet
0.3 mg PO DAILY Qty: 30 0RF
budesonide-formoterol [Breyna] 160-4.5 mcg/actuation Hfa Aerosol Inhaler
2 inh INHALATION R BID
Referrals:
Minnie Frederick CRNP [Family Provider] - Follow up in 5-7 days
Farzad Agee MD [Active] - Keep scheduled appt (You have an appointment with your client evaluator on 07/24/24. Please keep this appointment and call the office if you have any questions.)
Activity Restrictions/Additional Instructions:
You were seen in the Emergency Room for chest pain. The client evaluator saw you as well.
Your echocardiogram, chest xray, troponin (cardiac blood test), and ecg were all reassuring.
Your chest pain improved with toradol. Please continue taking your colchicine as directed by your client evaluator.
You have a follow up appointment with your client evaluator on 07/24/24.
Please return to ED for evaluation if you develop worsening symptoms, chest pain/shortness of breath that is getting worse, or new concerns.
Interventions
Interventions:
*Risk Screen - Suicide Last Done: 07/16/24 07:38
*General Assessment Last Done: 07/16/24 07:38
*Neglect/Abuse Screening Last Done: 07/16/24 07:38
ED- Fall Risk Assessment Last Done: 07/16/24 08:23
*ED COVID-19 Vaccine History Last Done: 07/16/24 08:23
ED- Cardiac Assessment Last Done: 07/16/24 08:23
Discharge Date and Time
Print Language: MALTESE
[2024-07-16 08:28] VITALS: BP 141/96
[2024-07-16 08:52] LABS: % Basophils 0.5 % (0-2); % Eosinophils 1.2 % (0-6); % Immature Granulocytes 0.5 % (0-0.5); % Lymphocytes 14.6 % (20.5-51.1); % Monocytes 9.2 % (1.7-9.3); Absolute Basophils 0.1 10^3/uL (0-0.2); Absolute Eosinophils 0.2 10^3/uL (0-0.7); Absolute Immature Granulocytes 0.1 10^3/uL (0-0.05); Absolute Lymphocytes 1.8 10^3/uL (1.2-3.4); Absolute Monocytes 1.1 10^3/uL (0.1-0.6); Absolute Neutrophils 9.2 10^3/uL (1.4-6.5); Hematocrit 43.9 % (39.0-52.0); Hemoglobin 14.7 g/dL (13.0-18.0); Mean Corp Hgb Conc. 33.5 g/dL (33.0-37.0); Mean Corpuscular Hgb 30.8 pg (27.0-31.0); Mean Platelet Volume 8.7 fL (7.4-10.4); Nucleated Red Blood Cells % 0 % (-); Platelet Count 234 10^3/uL (130-400); Red Blood Cell Count 4.77 10^6/uL (4.70-6.10); Red Cell Dist. Width 15.3 % (11.5-14.5); White Blood Cell Count 12.4 10^3/uL (4.8-10.8)
[2024-07-16] MEDS: TORADOL 15 MG IV (08:56)
[2024-07-16 09:00] VITALS: BP 147/90
[2024-07-16 09:04] LABS: Blood Urea Nitrogen 17 mg/dl (9-20); Calcium 9.4 mg/dl (8.4-10.2); Carbon Dioxide 24 mmol/L (22-30); Chloride 101 mmol/L (98-107); Estimated Creatinine Clearance 101 ml/min; Glucose 110 mg/dl (70-99); Sodium 135 mmol/L (135-145); eGFR > 60.00
[2024-07-16 09:20] LABS: Troponin I 0.074 ng/ml
--- NOTE | 2024-07-16 09:33 | CON.CAR ---
Addendum entered and electronically signed by Farzad Agee MD 07/16/24 12:17:
I saw and examined the patient.
The CYTOLOGY LABORATORY MANAGER's note was reviewed and I agree with the note.
Comment: 53 yo male with severe MR s/p MV repair 01/30/24, pericarditis 04/2024 (treated with colchicine 0.3mg daily, plan for 3 months), paroxysmal afib/aflutter on Amiodarone and Eliquis, s/p afib and aflutter ablation 07/10/24, HTN, and HLD, who
presents to the ER with c/o chest pain since ablation procedure 07/10/24.
It is unclear as the source of his CP today the quality is different than his prior pericarditis pain. He had essentially no CAD on cath in December 2023, thus ischemic CAD is not likely, and his echo showed no effusion, normal fxn, and MVR is stable.
- likely noncardiac CP
- no further testing from a brake tester perspective
- continue colchicine until August 22
Original Note:
Consultation
Consultation Request
Date/Time Consultation Requested: 07/16/24 8:45a
Date/Time Consultation Performed: 07/16/24 9a
Requesting Provider: Dr. Arzate
Performing Provider: DANYA Benoit for Dr. Agee
Reason for Consultation: chest pain
Medical History
-
Chief Complaint: chest pain
History of Present Illness:
Mr. Koo is a 53 yo male with severe MR s/p MV repair 01/30/24, pericarditis 04/2024 (treated with colchicine 0.3mg daily, plan for 3 months), paroxysmal afib/aflutter on Amiodarone and Eliquis, s/p afib and aflutter ablation 07/10/24, HTN, and HLD,
who presents to the ER with c/o chest pain since ablation procedure 07/10/24. He describes the pain as constant, tight chest pain to his midsternal chest area. It is worse after standing from seated position or lying down. Improves mildly with
sitting upright. He notes a cough, nonproductive, as well. He denies any SOB, palpitations or other symptoms. Chest pain is not worse with exertion. CXR and echo are pending.
Sustainability Purchasing Agent: Dr. Agee
EP brake tester: Dr. Reyes
Past Medical History
Past Medical History: Other (as above)
Past Surgical History: Other (as above)
Social History
Tobacco: Non-Smoker
Alcohol: None
Personal:
Living: With Family
Family History
Family History: Reviewed & Not Pertinent
Allergies / Home Medications
Allergy/AdvReac Type Severity Reaction Status Date / Time
albuterol Allergy Unknown Unknown Verified 07/16/24 07:34
[From Proventil HFA]
mometasone furoate Allergy Unknown Unknown Verified 07/16/24 07:34
[From Asmanex Twisthaler]
�Medication �Instructions �Recorded �Confirmed �Type
aspirin 81 mg chewable tablet 81 mg PO DAILY Blood Clot 12/21/23 07/16/24 History
(Richard Chewable Low Dose Aspirin) Prevention/Tx
cholecalciferol (vitamin D3) 50 50 mcg PO DAILY Supplement 12/21/23 07/16/24 History
mcg (2,000 unit) tablet (Vitamin
D3)
rosuvastatin 40 mg tablet 40 mg PO DAILY High Cholesterol 12/21/23 07/16/24 History
vitamin B12 500 mcg-folic acid 400 1 tab PO DAILY Supplement 12/21/23 07/16/24 History
mcg tablet
therapeutic multivitamin 1 tab PO DAILY Supplement 02/08/24 07/16/24 History
amiodarone 200 mg tablet 200 mg PO DAILY Arrhythmia 04/23/24 07/16/24 History
apixaban 5 mg tablet (Eliquis) 5 mg PO BID Blood Clot 04/23/24 07/16/24 History
Prevention/Tx
colchicine 0.6 mg tablet 0.3 mg (1/2 x 0.6 mg) PO DAILY 04/25/24 07/16/24 Rx
pericarditis #30 tabs
budesonide-formoterol HFA 160 2 inh inhalation R BID 07/16/24 07/16/24 History
mcg-4.5 mcg/actuation aerosol
inhaler (Breyna)
Review of Systems
-
History Source: Patient
All other systems: Negative unless noted
Physical Exam
Vital Signs
Temp Pulse Resp BP Pulse Ox
99.5 F 76 22 147/90 95
07/16/24 07:38 07/16/24 09:15 07/16/24 09:15 07/16/24 09:00 07/16/24 09:15
Lab Results
07/16/24 08:38
07/16/24 08:38
Troponin I 0.074 ng/ml H* 07/16/24 08:38
Physical Exam
General: Well Developed, Well Nourished and No Apparent Distress
HEENT: Normocephalic, Anicteric and Moist Mucous Membranes
Respiratory: Clear and Non Labored Respirations
Cardiac: S1/S2 and Regular Rhythm
Breast: Deferred by me
GI: Soft, Non Tender, Non Distended and Normal Bowel Sounds
Rectal: Deferred by Provider
Musculoskeletal: No Clubbing, No Cyanosis and No Edema
Skin: Warm and Dry
Neuro: AO x 3
Hematologic/Lymphatic: No Lymphadenopathy
Psych: Calm
Impression / Plan
-
Chest pain - constant since afib/aflutter ablation 07/10/24.
- possible pericarditis, though he is on colchicine 0.3mg daily since pericarditis diagnosis 04/2024. planned treatment for 3 months, 07/25/24.
- will check chest CXR and echo today.
- given IV Toradol in the ER.
- troponin 0.074, trend, likely in the setting of having ablation 07/10/24.
- cath 12/2023 without CAD.
Severe mitral regurgitation - s/p MV repair on 01/30/2024.
- echo 04/23/24 with stable gradients, no MR.
- check echo today.
Paroxysmal atrial fibrillation/flutter - s/p ablation 07/10/24.
- in NSR on Amiodarone.
- check echo given chest pain.
- [id number]: score 1 (HTN).
- continue Eliquis for OAC, no missed doses or abnormal bleeding. continue to 3 months post ablation.
HTN - stable, monitor.
Dyslipidemia - stable on Crestor, continue.
Data Reviewed
-
EKG: Tracing Personally Visualized and interpreted (NSR 83 bpm, nonspecific T wave abnormality)
Medical Tests (Nuc Med, Echo etc): Report Reviewed by me (echo 04/23/24: normal biventricular size/function, no RWMA, MV repair stable no MR.) and Other (cath 12/2023: no significant CAD, normal filling pressures.)
Labs: Labs Reviewed by me
Old Records: Reviewed
[2024-07-16 10:35] VITALS: BP 122/81
[2024-07-16 11:00] VITALS: BP 125/75
[2024-07-16 12:00] VITALS: BP 133/85
[2024-07-16 12:12] LABS: Troponin I 0.071 ng/ml
== END 2024-07-16 12:38 | disposition home or self-care (01) ==
LOC: EMR 07:20
PROVIDERS: Student in an Organized Health Care Education/Training Program; CONSULT PHYSICIAN Internal Medicine Cardiovascular Disease; EMERGENCY PHYSICIAN Student in an Organized Health Care Education/Training Program; FAMILY PHYSICIAN Nurse Practitioner Family
DX: R07.89 Other chest pain (principal); I10 Essential (primary) hypertension; E78.5 Hyperlipidemia, unspecified; I48.0 Paroxysmal atrial fibrillation; Z79.01 Long term (current) use of anticoagulants
CPT/HCPCS: 99285; 96374; 93308; 71046; 80048; 84484; 85025; 93005; 93321; 93325

== ENCOUNTER → 2024-12-25 13:01 | Outpatient (REF) | payer BC, SELFPAY | LOC: RCS 13:01 | PROVIDERS: ATTENDING PHYSICIAN Internal Medicine Cardiovascular Disease; FAMILY PHYSICIAN Nurse Practitioner Family | DX: R00.1 Bradycardia, unspecified (principal) | CPT/HCPCS: 93225; 93226 ==

== ENCOUNTER → 2025-04-16 09:59 | Outpatient (REF) | payer BC, SELFPAY | LOC: RCS 09:59 | PROVIDERS: ATTENDING PHYSICIAN Internal Medicine Cardiovascular Disease; FAMILY PHYSICIAN Nurse Practitioner Family | DX: Z98.890 Other specified postprocedural states (principal) | CPT/HCPCS: 93306 ==